=== PATIENT | female | born 1950 | race Caucasian/White ===

== ENCOUNTER → 2020-02-05 | Outpatient (CLI) | payer MEDICARE ==
--- NOTE | 2020-02-11 07:50 | MM ---
Reason for exam: clinical finding. History: Patient is postmenopausal and is nulliparous. Family history of breast cancer in mother at age 48 and breast cancer in sister at age 61. Excisional biopsy of the right breast. Benign excisional biopsy of the right breast. Took estrogen for 6 months beginning at age 47. Took progesterone for 6 months beginning at age 47. Physical Findings: Nurse did not find any significant physical abnormalities on exam. MG Diagnostic Mammo w CAD DELTA Bilateral CC and MLO view(s) were taken. The breast tissue is heterogeneously dense. This may lower the sensitivity of mammography. Finding #1: There is a 11 mm irregular mass in the lower inner quadrant of the right breast. Finding #2: There are typically benign calcifications in the right breast. These results were verbally communicated with the patient and result sheet given to the patient on 02/05/20. ASSESSMENT: Incomplete: need additional imaging evaluation, BI-RAD 0 RECOMMENDATION: Ultrasound of the right breast.
--- NOTE | 2020-02-11 07:52 | USB ---
Reason for exam: additional evaluation requested from abnormal screening. History: Patient is postmenopausal and is nulliparous. Family history of breast cancer in mother at age 48 and breast cancer in sister at age 61. Excisional biopsy of the right breast. Benign excisional biopsy of the right breast. Took estrogen for 6 months beginning at age 47. Took progesterone for 6 months beginning at age 47. US Breast RT Technologist: Bettina Del Real Right complete breast ultrasound includes all four quadrants, the retroareolar region and axilla. Finding demonstrates a 0.9 x 0.8 x 0.5cm lymph node at 12 o'clock. These results were verbally communicated with the patient and result sheet given to the patient on 02/05/20. ASSESSMENT: Suspicious, BI-RAD 4 RECOMMENDATION: Surgical consultation and stereotactic core biopsy of the right breast. Biopsy right inner lower breast. Surgical consult recommended regarding bloody nipple discharge. Called Dr. Adame's office with mammographic findings and has scheduled an appointment for the patient for 02/18/20 at 4:[address] Barillas. PRELIMINARY REPORT CALLED AND FAXED TO DR. BARILLAS ON 02/11/20.
== END | disposition home or self-care (01) ==
LOC: RADMAMWWP 10:29
PROVIDERS: ATTEND Family Medicine
DX: N64.59 Other signs and symptoms in breast (principal); Z80.3 Family history of malignant neoplasm of breast
CPT/HCPCS: 77066

== ENCOUNTER → 2020-02-26 | Outpatient (CLI) | payer MEDICARE | END | disposition home or self-care (01) | LOC: LABWHC1 11:13 | PROVIDERS: ATTEND Surgery | DX: Z11.59 Encounter for screening for other viral diseases (principal) ==

== ENCOUNTER → 2020-02-28 | Day surgery (SDC) | payer MEDICARE ==
[2020-02-28 09:48] VITALS: RESP 16; TEMP 98.2
--- NOTE | 2020-02-28 10:53 | P.PCN ---
Date of Procedure: 02/28/20 Preoperative Diagnosis: abnormal mammogram right breast Postoperative Diagnosis: abnormal mammogram right breast Procedure(s) Performed: right stereotactic breast biopsy with marker placement Anesthesia: local Surgeon: Karina Barillas Pathology: other Condition: stable Disposition: other (discharge home) Indications for Procedure: abnormal mammogram Description of Procedure: The patient is taken to the stereotactic suite where the area of concern is identified and marked by the radiologist. The breast is then prepped. Local anesthetic was instilled into the skin and breast tissue. A skin cash was made. The needle was advanced to the appropriate depth. Pre-fire films were obtained. The needle was then fired. Multiple vacuum-assisted automated cores are obtained and sent for pathology. A tissue markers placed. Postbiopsy film showed the marker to be in good position. Pressure was held the dressing was applied. She tolerated the procedure without difficulty. I will see her in the office next week for pathology.
[2020-02-28 11:32] VITALS: BP 158/69; PULSE 53
--- NOTE | 2020-02-28 11:34 | MM ---
EXAMINATION TYPE: MG stereo VAD BX RT DATE OF EXAM: 02/28/2020 COMPARISON: Prior mammogram February 05, 2020 and older mammograms CLINICAL HISTORY: Abnormal mammogram. Recent benign biopsy December 2018. TECHNIQUE: Stereotactic guided core biopsy of right breast with clip placement and follow-up diagnostic two-view mammogram.. FINDINGS: The procedure of stereotactic guided core biopsy was explained to the patient. Benefits, alternatives, and risks were discussed. An informed consent was then obtained. The shortness pathway for biopsy was chosen. Preprocedure mammogram reviewed shows focal asymmetry near biopsy clip felt suspicious by radiologist. Shortness pathway was inferior approach. I performed the localization, then surgeon, Dr. Barillas performed the remainder of the procedure. A vacuum assisted biopsy gun was used to obtain multiple core samples. The patient tolerated the procedure well without any immediate complication. The patient was kept in the radiology department for short stay after the procedure and then discharged home in stable condition. Targeted calcifications are identified in specimen mammogram. Post biopsy mammogram shows single remaining clip to appear in satisfactory position relative to the targeted area of concern on the preprocedure images. Small hematoma is present. It is suspected prior biopsy clip was excised during this sampling. IMPRESSION: SUCCESSFUL, UNCOMPLICATED STEREOTACTIC GUIDED CORE BIOPSY OF AREA OF CONCERN IN THE RIGHT BREAST, FULL PATHOLOGY RESULTS TO FOLLOW. Low index of suspicion noted at time of procedure. Pathology Results: Benign RIGHT BREAST, STEREOTACTIC CORE BIOPSY: Fibroadenoma/fibroadenomatoid hyperplasia with background scar and hemosiderin laden histiocytes. Recommendation Follow up mammogram of the right breast in 6 months. JOANNE
== END ==
LOC: RADMAMWWP 09:31
PROVIDERS: ATTEND Surgery
DX: D24.1 Benign neoplasm of right breast (principal); N62 Hypertrophy of breast; Z88.8 Allergy status to other drugs, medicaments and biological substances; Z88.5 Allergy status to narcotic agent
CPT/HCPCS: 88305; 19081; A4648

== ENCOUNTER → 2020-09-22 | Outpatient (CLI) | payer MEDICARE ==
--- NOTE | 2020-09-23 08:40 | MM ---
Reason for exam: follow-up at short interval from prior study. Last mammogram was performed 8 months ago. History: Patient is postmenopausal and is nulliparous. Family history of breast cancer in mother at age 48 and breast cancer in sister at age 61. Benign MG stereo VAD BX RT of the right breast, February 28, 2020. Excisional biopsy of the right breast. Benign excisional biopsy of the right breast. Took estrogen for 6 months beginning at age 47. Took progesterone for 6 months beginning at age 47. Physical Findings: Nurse did not find any significant physical abnormalities on exam. MG Diagnostic Mammo RT w CAD CC and MLO view(s) were taken of the right breast. Prior study comparison: February 05, 2020, bilateral MG diagnostic mammo w CAD DELTA. There are scattered fibroglandular densities. Previous mammotome biopsy in the right breast. Focal asymmetry right upper outer quadrant. No significant new findings when compared with previous films. These results were verbally communicated with the patient and result sheet given to the patient on 09/22/20. ASSESSMENT: Benign, BI-RAD 2 RECOMMENDATION: Routine screening mammogram of both breasts in 6 months. Back on schedule.
== END | disposition home or self-care (01) ==
LOC: RADMAMWWP 14:31
PROVIDERS: ATTEND Family Medicine
DX: R92.8 Other abnormal and inconclusive findings on diagnostic imaging of breast (principal)
CPT/HCPCS: 77065

== ENCOUNTER → 2021-03-11 | Outpatient (CLI) | payer MEDICARE ==
--- NOTE | 2021-03-12 13:10 | MM ---
Reason for exam: screening (asymptomatic). Last mammogram was performed 6 months ago. History: Patient is postmenopausal and is nulliparous. Family history of breast cancer in mother at age 48 and breast cancer in sister at age 61. Benign MG stereo VAD BX RT of the right breast, February 28, 2020. Excisional biopsy of the right breast. Benign excisional biopsy of the right breast. Took estrogen for 6 months beginning at age 47. Took progesterone for 6 months beginning at age 47. Physical Findings: A clinical breast exam by your physician is recommended on an annual basis and results should be correlated with mammographic findings. MG Screening Mammo w CAD Bilateral CC and MLO view(s) were taken. Prior study comparison: September 22, 2020, right breast MG diagnostic mammo RT w CAD. February 05, 2020, bilateral MG diagnostic mammo w CAD DELTA. There are scattered fibroglandular densities. Biopsy clips bilaterally. Right diagnostic mammogram with magnification views retroareolar region is recommended for patient reported right bloody nipple discharge. Right ultrasound also recommended for same. Repeat left MLO for motion. ASSESSMENT: Incomplete: need additional imaging evaluation, BI-RAD 0 RECOMMENDATION: Special view mammogram of both breasts. Ultrasound of the right breast. [facility] will attempt to contact patient to return for supplemental views and ultrasound.
== END | disposition home or self-care (01) ==
LOC: RADMAMWWP 12:39
PROVIDERS: ATTEND Family Medicine
DX: Z12.31 Encounter for screening mammogram for malignant neoplasm of breast (principal); Z78.0 Asymptomatic menopausal state; Z80.3 Family history of malignant neoplasm of breast
CPT/HCPCS: 77067

== ENCOUNTER → 2021-04-20 | Outpatient (CLI) | payer MEDICARE ==
--- NOTE | 2021-04-23 13:03 | USB ---
Reason for exam: additional evaluation requested from abnormal screening. History: Patient is postmenopausal and is nulliparous. Family history of breast cancer in mother at age 48 and breast cancer in sister at age 61. Benign MG stereo VAD BX RT of the right breast, February 28, 2020. Excisional biopsy of the right breast. Benign excisional biopsy of the right breast. Took estrogen for 6 months beginning at age 47. Took progesterone for 6 months beginning at age 47. Physical Findings: Nurse Summary: all soft, nodular, movable, no nipple discharge noted on exam (nurse ts). US Breast Workup Limited RT Right limited breast ultrasound including focal area of concern, retroareolar and axilla demonstrates duct ectasia at 12 o'clock and a 1.3 x 1.0 x 1.2cm lymph node at the axilla. These results were verbally communicated with the patient and result sheet given to the patient on 04/20/21. ASSESSMENT: Benign, BI-RAD 2 RECOMMENDATION: Return to routine screening mammogram schedule for both breasts. Manage patient on a clinical basis.
== END | disposition home or self-care (01) ==
LOC: RADUSWWP 14:36
PROVIDERS: ATTEND Family Medicine
DX: R92.8 Other abnormal and inconclusive findings on diagnostic imaging of breast (principal); Z80.3 Family history of malignant neoplasm of breast

== ENCOUNTER 2021-07-21 12:17 | Emergency (ER) | payer MEDICARE ==
[2021-07-21 13:06] VITALS: BP 118/74; TEMP 98.6
--- NOTE | 2021-07-21 16:08 | ED ---
General Adult HPI - General Chief complaint: Upper Respiratory Infection Stated complaint: COVID+ wants infusion Time Seen by Provider: 07/21/21 15:11 Source: patient, RN notes reviewed Mode of arrival: ambulatory Limitations: no limitations - History of Present Illness Initial comments: 70-year-old female presents to the emergency department with complaints of fatigue and malaise, she is known Covid positive. Patient states her symptoms began 5 days ago with a nonproductive cough and decreased appetite. Patient was seen by her primary care provider who recommended she receive the monoclonal antibody infusion. Patient denies fever, chills, chest pain, difficulty breathing, shortness of breath. States she has taken Tylenol for generalized body aches. - Related Data Home Medications Medication Instructions Recorded Confirmed Cholecalciferol [Vitamin D3 (25 5,000 unit PO DAILY 03/15/19 02/28/20 Mcg = 1000 Iu)] Dapagliflozin Propanediol [Farxiga] 10 mg PO DAILY 03/15/19 02/28/20 Diclofenac Sodium Gel [Voltaren 2 gm TOPICAL QID 03/15/19 02/28/20 Gel] Insulin Glulisine (For Pump) 0.01 units SQ-PUMP CONTINUOUS 03/15/19 02/28/20 [Apidra (For Pump)] Spironolactone 50 mg PO DAILY 03/15/19 02/28/20 Triamcinolone 0.1% Cream [Kenalog 1 applicatio TOPICAL BID 03/15/19 02/28/20 0.1% Cream] Venlafaxine HCl [Effexor] 225 mg PO DAILY 03/15/19 02/28/20 sitaGLIPtin [Januvia] 100 mg PO DAILY 03/15/19 02/28/20 Apixaban [Eliquis] 2.5 mg PO BID 02/21/20 02/28/20 Previous Rx's Medication Instructions Recorded Amiodarone [Cordarone] 200 mg PO BID #60 tab 03/20/19 Atorvastatin [Lipitor] 40 mg PO HS #30 tab 03/20/19 Lisinopril-Hctz 20-12.5 mg 1 each PO BID #60 tab 03/20/19 [Zestoretic 20-12.5] Metoprolol Tartrate [Lopressor] 25 mg PO BID #60 tablet 03/20/19 Psyllium Husk 100% [Metamucil 6 gm PO DAILY packet 03/20/19 Packet] Allergies Allergy/AdvReac Type Severity Reaction Status Date / Time codeine AdvReac Unknown Verified 07/21/21 13:06 hydrocodone AdvReac Unknown Verified 07/21/21 13:06 nifedipine [From Procardia] AdvReac Unknown Verified 07/21/21 13:06 Review of Systems ROS Statement: Those systems with pertinent positive or pertinent negative responses have been documented in the HPI. ROS Other: All systems not noted in ROS Statement are negative. Past Medical History Past Medical History: Diabetes Mellitus, Hypertension History of Any Multi-Drug Resistant Organisms: None Reported Past Surgical History: Appendectomy, Cholecystectomy, Hysterectomy Additional Past Surgical History / Comment(s): lap band Past Anesthesia/Blood Transfusion Reactions: No Reported Reaction Past Psychological History: Depression Smoking Status: Never smoker Past Alcohol Use History: None Reported - Past Family History Mother Family Medical History: Diabetes Mellitus Additional Family Medical History / Comment(s): of a heart attack Father Family Medical History: Congestive Heart Failure (CHF) General Exam Limitations: no limitations (Well-developed, well-nourished female in no acute distress. Initial temperature 98.6, pulse 66, respirations 20, blood pressure 118/74, pulse ox 97% on room air.) General appearance: alert, in no apparent distress ENT exam: Present: normal exam, normal oropharynx, mucous membranes moist Neck exam: Present: normal inspection. Absent: tenderness, meningismus, lymphadenopathy Respiratory exam: Present: normal lung sounds bilaterally. Absent: respiratory distress, wheezes, rales, rhonchi, stridor Cardiovascular Exam: Present: regular rate, normal rhythm, normal heart sounds. Absent: systolic murmur, diastolic murmur, rubs, gallop, clicks GI/Abdominal exam: Present: soft, normal bowel sounds. Absent: distended, tenderness, guarding, rebound, rigid Neurological exam: Present: alert, oriented X3, CN II-XII intact Psychiatric exam: Present: normal affect, normal mood Skin exam: Present: warm, dry, intact, normal color. Absent: rash Course Vital Signs 07/21/21 07/21/21 07/21/21 13:03 15:07 19:07 Temperature 98.6 F Pulse Rate 66 68 Respiratory 20 22 16 Rate Blood Pressure 118/74 O2 Sat by Pulse 97 96 Oximetry Medical Decision Making - Medical Decision Making 70-year-old female with a history of type 2 diabetes and recent diagnosis of COVID-19 is evaluated for monoclonal antibody infusion. Upon physical exam, patient is well-appearing; mucous membranes moist, no shortness of breath, and patient is eating a sandwich and drinking juice. Regen-COV medication fact sheet reviewed with patient; she verbalized understanding and wished to proceed with infusion. It was well-tolerated with no adverse action. Discharge instructions were reviewed with patient including follow-up with her primary care provider. Return parameters were discussed in detail. Patient verbalizes understanding and agrees with this plan. This patient's case was discussed with my attending Dr. Hernandez. Disposition Clinical Impression: COVID-19 Disposition: HOME SELF-CARE Condition: Stable Instructions (If sedation given, give patient instructions): Coronavirus Disease 2019 (COVID-19) Additional Instructions: Rest. Increase fluids. Treatment discomfort with [id number] Tylenol or Motrin. Follow-up with your primary care provider for a recheck. Return to the emergency department with any new, worsening, or concerning symptoms. Is patient prescribed a controlled substance at d/c from ED?: No Referrals: Viraj Adame MD [Primary Care Provider] - 1-2 days Time of Disposition: 19:01
[2021-07-21] MEDS ORDERED: SODIUM CHLORIDE 0.9% 50 ML IVPB ONE (16:30)
[2021-07-21] MEDS ORDERED: CASIRIVIMAB (REGN10933) (EUA) 600 MG, IMDEVIMAB (REGN10987) (EUA) 600 MG in SODIUM CHLO... IVPB ONE (16:45)
[2021-07-21 19:08] VITALS: PULSE 68; RESP 16
== END 2021-07-21 19:08 | disposition home or self-care (01) ==
LOC: EC 12:17
DX: U07.1 COVID-19 (principal); I10 Essential (primary) hypertension; E11.9 Type 2 diabetes mellitus without complications; F32.9 Major depressive disorder, single episode, unspecified; Z79.4 Long term (current) use of insulin; Z79.01 Long term (current) use of anticoagulants; Z88.5 Allergy status to narcotic agent; Z90.49 Acquired absence of other specified parts of digestive tract; Z90.710 Acquired absence of both cervix and uterus
CPT/HCPCS: 99283 ×2; 96365; M0243; Q0243

== ENCOUNTER 2021-07-24 17:30 | Inpatient (IN) | payer MEDICARE ==
[2021-07-24] MEDS ORDERED: SODIUM CHLORIDE 0.9% 500 ML 500 ML IV STA (19:01)
--- NOTE | 2021-07-24 19:06 | ED ---
General Adult HPI <Bryn Cage - Last Filed: 07/24/21 20:52> - General Source: patient, RN notes reviewed, old records reviewed Mode of arrival: wheelchair Limitations: no limitations - History of Present Illness -: days(s) (8) Severity scale (1-10): 0 Associated Symptoms: malaise Treatments Prior to Arrival: other (Tylenol and Motrin at 1500) <Ancelmo Forrest - Last Filed: 07/24/21 23:21> - General Chief complaint: Upper Respiratory Infection Stated complaint: COVID+ Time Seen by Provider: 07/24/21 18:50 - History of Present Illness Initial comments: Well-appearing well-nourished 70-year-old female that presents to the emergency room with complaints of generalized fatigue. Patient states that she was diagnosed with Covid on Monday and received monoclonal antibodies on Monday the . She states that her symptoms all started on July 16. She states that since getting the monoclonal antibody she has not had a fever or cough but just has generalized fatigue. She denies any nausea vomiting diarrhea, chest pain or difficulty in breathing. She does live alone and came to the emergency room because she feels weak. She does have a history of diabetes and uses an insulin pump. She has not had any problems with her blood sugars.. (Ancelmo Forrest) - Related Data Home Medications Medication Instructions Recorded Confirmed Dapagliflozin Propanediol [Farxiga] 10 mg PO DAILY 03/15/19 07/24/21 Insulin Glulisine (For Pump) 0.01 units SQ-PUMP CONTINUOUS 03/15/19 07/24/21 [Apidra (For Pump)] Spironolactone 50 mg PO DAILY 03/15/19 07/24/21 Venlafaxine HCl [Effexor] 225 mg PO DAILY 03/15/19 07/24/21 sitaGLIPtin [Januvia] 100 mg PO DAILY 03/15/19 07/24/21 Allopurinol [Zyloprim] 100 mg PO HS 07/24/21 07/24/21 Apixaban [Eliquis] 2.5 mg PO BID 07/24/21 07/24/21 Cetirizine HCl [Zyrtec] 10 mg PO DAILY 07/24/21 07/24/21 Cholecalciferol [Vitamin D3 (25 25 mcg PO DAILY 07/24/21 07/24/21 Mcg = 1000 Iu)] Lisinopril-Hctz 20-12.5 mg 1 tab PO BID 07/24/21 07/24/21 [Zestoretic 20-12.5] Previous Rx's Medication Instructions Recorded Atorvastatin [Lipitor] 40 mg PO HS #30 tab 03/20/19 Metoprolol Tartrate [Lopressor] 25 mg PO BID #60 tablet 03/20/19 Allergies Allergy/AdvReac Type Severity Reaction Status Date / Time codeine AdvReac Unknown Verified 07/24/21 21:28 hydrocodone AdvReac Unknown Verified 07/24/21 21:28 nifedipine [From Procardia] AdvReac Unknown Verified 07/24/21 21:28 Review of Systems ROS Other: All systems not noted in ROS Statement are negative. <Bryn Cage - Last Filed: 07/24/21 20:52> ROS Other: All systems not noted in ROS Statement are negative. <Ancelmo Forrest - Last Filed: 07/24/21 23:21> ROS Statement: Those systems with pertinent positive or pertinent negative responses have been documented in the HPI. Past Medical History Past Medical History: Diabetes Mellitus, Hypertension History of Any Multi-Drug Resistant Organisms: None Reported Past Surgical History: Appendectomy, Cholecystectomy, Hysterectomy Additional Past Surgical History / Comment(s): lap band Past Anesthesia/Blood Transfusion Reactions: No Reported Reaction Past Psychological History: Depression Smoking Status: Never smoker Past Alcohol Use History: None Reported Past Drug Use History: None Reported - Past Family History Mother Family Medical History: Diabetes Mellitus Additional Family Medical History / Comment(s): of a heart attack Father Family Medical History: Congestive Heart Failure (CHF) <Ancelmo Forrest - Last Filed: 07/24/21 23:21> General Exam Limitations: no limitations General appearance: alert, in no apparent distress Head exam: Present: atraumatic, normocephalic, normal inspection Eye exam: Present: normal appearance, PERRL, EOMI. Absent: scleral icterus, conjunctival injection, periorbital swelling ENT exam: Present: normal exam, normal oropharynx, mucous membranes moist Neck exam: Present: normal inspection, full ROM. Absent: tenderness, meningismus, lymphadenopathy Respiratory exam: Present: normal lung sounds bilaterally. Absent: respiratory distress, wheezes, rales, rhonchi, stridor Cardiovascular Exam: Present: regular rate, normal rhythm, normal heart sounds. Absent: systolic murmur, diastolic murmur, rubs, gallop, clicks GI/Abdominal exam: Present: soft, normal bowel sounds. Absent: distended, tenderness, guarding, rebound, rigid Extremities exam: Present: normal inspection, full ROM, normal capillary refill. Absent: tenderness, pedal edema, joint swelling, calf tenderness Back exam: Present: normal inspection, full ROM. Absent: tenderness, CVA tenderness (R), CVA tenderness (L), paraspinal tenderness, vertebral tenderness, rash noted Neurological exam: Present: alert, oriented X3, CN II-XII intact Psychiatric exam: Present: normal affect, normal mood Skin exam: Present: warm, dry, intact, normal color. Absent: rash <Ancelmo Forrest - Last Filed: 07/24/21 23:21> Course Vital Signs 07/24/21 07/24/21 18:40 21:38 Temperature 98.6 F 98.7 F Pulse Rate 60 63 Respiratory 20 20 Rate Blood Pressure 149/90 132/54 O2 Sat by Pulse 98 99 Oximetry EKG Findings - EKG Results: EKG: sinus rhythm (Ventricular rate 64, CO interval of 0.188, QRS 0.128, QTc 0.466), not changed from: (03/19/2019) <Ancelmo Forrest - Last Filed: 07/24/21 23:21> Medical Decision Making - Lab Data Result diagrams: 07/24/21 19:25 07/24/21 19:25 <Bryn Cage - Last Filed: 07/24/21 20:52> - Lab Data Result diagrams: 07/24/21 19:25 07/24/21 22:16 <Ancelmo Forrest - Last Filed: 07/24/21 23:21> - Medical Decision Making Case reviewed with practitioner Angel. Results reviewed. Case discussed with aircraft engine mechanic overhaul Dr. Aparicio who does not feel patient needs ICU admission. (Bryn Cage) Chest x-ray shows interstitial pneumonia which is likely covid pneumonia. She has been complaining of worsening fatigue after Covid. There is no evidence of leukocytosis or anemia. Her sodium is 118 lactic acid is 2.3. Troponin is negative at 0.012 chest x-ray shows no acute changes compared to 03/19/2019. Patient was given 500cc of normal saline. Patient will be admitted with hyponatremia. I did discuss this case with Dr. Cage. He did discuss with Dr. Aparicio possible ICU admission and he declined. Patient will be admitted to a telemetry floor ([facility]) - Lab Data Lab Results 07/24/21 07/24/21 07/24/21 Range/Units 19:25 19:25 19:25 WBC 10.3 (3.8-10.6) k/uL RBC 4.93 (3.80-5.40) m/uL Hgb 14.9 (11.4-16.0) gm/dL Hct 43.2 (34.0-46.0) % MCV 87.6 (80.0-100.0) fL MCH 30.2 (25.0-35.0) pg MCHC 34.5 (31.0-37.0) g/dL RDW 14.8 (11.5-15.5) % Plt Count 254 (150-450) k/uL MPV 8.5 Neutrophils % 77 % Lymphocytes % 16 % Monocytes % 4 % Eosinophils % 1 % Basophils % 0 % Neutrophils # 8.0 H (1.3-7.7) k/uL Lymphocytes # 1.7 (1.0-4.8) k/uL Monocytes # 0.4 (0-1.0) k/uL Eosinophils # 0.1 (0-0.7) k/uL Basophils # 0.0 (0-0.2) k/uL PT 10.5 (9.0-12.0) sec INR 1.0 (<1.2) APTT 28.6 (22.0-30.0) sec Sodium 118 L* (137-145) mmol/L Potassium 4.8 (3.5-5.1) mmol/L Chloride 82 L (98-107) mmol/L Carbon Dioxide 22 (22-30) mmol/L Anion Gap 14 mmol/L BUN 17 (7-17) mg/dL Creatinine 0.84 (0.52-1.04) mg/dL Est GFR (CKD-EPI)AfAm 83 (>60 ml/min/1.73 sqM) Est GFR (CKD-EPI)NonAf 72 (>60 ml/min/1.73 sqM) Glucose 127 H (74-99) mg/dL Lactic Ac Sepsis Rflx Plasma Lactic Acid Tyron (0.7-2.0) mmol/L Calcium 9.4 (8.4-10.2) mg/dL Magnesium 2.0 (1.6-2.3) mg/dL Total Bilirubin 0.7 (0.2-1.3) mg/dL AST 29 (14-36) U/L ALT 20 (4-34) U/L Alkaline Phosphatase 133 H (38-126) U/L Troponin I (0.000-0.034) ng/mL Total Protein 7.4 (6.3-8.2) g/dL Albumin 4.2 (3.5-5.0) g/dL TSH 2.030 (0.465-4.680) mIU/L 07/24/21 07/24/21 07/24/21 Range/Units 19:25 19:25 20:02 WBC (3.8-10.6) k/uL RBC (3.80-5.40) m/uL Hgb (11.4-16.0) gm/dL Hct (34.0-46.0) % MCV (80.0-100.0) fL MCH (25.0-35.0) pg MCHC (31.0-37.0) g/dL RDW (11.5-15.5) % Plt Count (150-450) k/uL MPV Neutrophils % % Lymphocytes % % Monocytes % % Eosinophils % % Basophils % % Neutrophils # (1.3-7.7) k/uL Lymphocytes # (1.0-4.8) k/uL Monocytes # (0-1.0) k/uL Eosinophils # (0-0.7) k/uL Basophils # (0-0.2) k/uL PT (9.0-12.0) sec INR (<1.2) APTT (22.0-30.0) sec Sodium (137-145) mmol/L Potassium (3.5-5.1) mmol/L Chloride (98-107) mmol/L Carbon Dioxide (22-30) mmol/L Anion Gap mmol/L BUN (7-17) mg/dL Creatinine (0.52-1.04) mg/dL Est GFR (CKD-EPI)AfAm (>60 ml/min/1.73 sqM) Est GFR (CKD-EPI)NonAf (>60 ml/min/1.73 sqM) Glucose (74-99) mg/dL Lactic Ac Sepsis Rflx Y Plasma Lactic Acid Tyron 2.3 H* (0.7-2.0) mmol/L Calcium (8.4-10.2) mg/dL Magnesium (1.6-2.3) mg/dL Total Bilirubin (0.2-1.3) mg/dL AST (14-36) U/L ALT (4-34) U/L Alkaline Phosphatase (38-126) U/L Troponin I <0.012 (0.000-0.034) ng/mL Total Protein (6.3-8.2) g/dL Albumin (3.5-5.0) g/dL TSH (0.465-4.680) mIU/L Disposition <Bryn Cage - Last Filed: 07/24/21 20:52> Decision Date: 07/24/21 Decision Time: 21:07 <Ancelmo Forrest - Last Filed: 07/24/21 23:21> Clinical Impression: Hyponatremia, COVID-19 Disposition: ADMITTED IP TO THIS [facility] Condition: Fair
[2021-07-24 20:01] LABS: Albumin 4.2 g/dL (3.5-5.0); Calcium 9.4 mg/dL (8.4-10.2); Potassium 4.8 mmol/L (3.5-5.1); Total Bilirubin 0.7 mg/dL (0.2-1.3); Total Protein 7.4 g/dL (6.3-8.2)
--- NOTE | 2021-07-24 20:06 | XR ---
EXAMINATION TYPE: XR chest 2V DATE OF EXAM: 07/24/2021 COMPARISON: 03/14/2019 HISTORY: Weakness short of breath TECHNIQUE: 2 views FINDINGS: There is in normal heart. There is some coarsening of interstitial markings in the lower bobby ng gomes. There is no heart failure. There are no hilar masses. Mediastinum is normal. IMPRESSION: Mild coarsening of the lung markings could be mild fibrosis or interstitial pneumonia. Th is appears new compared to old exam.
[2021-07-24 20:10] LABS: Partial Thromboplastin Time 28.6 sec (22.0-30.0); Prothrombin Time 10.5 sec (9.0-12.0)
[2021-07-24 20:13] LABS: Basophils % (A) 0 %; Eosinophils # (A) 0.1 k/uL (0-0.7); Eosinophils % (A) 1 %; HCT 43.2 % (34.0-46.0); HGB 14.9 gm/dL (11.4-16.0); Lymphocytes # (A) 1.7 k/uL (1.0-4.8); Lymphocytes % (A) 16 %; MCH 30.2 pg (25.0-35.0); MCHC 34.5 g/dL (31.0-37.0); MCV 87.6 fL (80.0-100.0); Mean Platelet Volume 8.5; Monocytes # (A) 0.4 k/uL (0-1.0); Monocytes % (A) 4 %; Neutrophils % (A) 77 %; Platelet Count 254 k/uL (150-450); RBC 4.93 m/uL (3.80-5.40); RDW 14.8 % (11.5-15.5); WBC 10.3 k/uL (3.8-10.6)
[2021-07-24] MEDS ORDERED: SODIUM CHLORIDE 0.9% 500 ML 500 ML IV ONE (20:15)
[2021-07-24] MEDS ORDERED: SODIUM CHLORIDE 0.9% 1,000 ML IV SCH (20:45)
[2021-07-24] MEDS ORDERED: NALOXONE 0.4 MG/ML 1 ML VIAL IV PRN (21:03)
[2021-07-24 22:50] LABS: African American GFR (CKD) >90 (>60 ml/min/1.73 sqM); Anion Gap 10 mmol/L; Blood Urea Nitrogen 18 mg/dL (7-17); Calcium 8.3 mg/dL (8.4-10.2); Carbon Dioxide 21 mmol/L (22-30); Chloride 85 mmol/L (98-107); Glucose 73 mg/dL (74-99); Non-African American GFR(CKD) >90 (>60 ml/min/1.73 sqM)
[2021-07-24 23:00] LABS: Sodium 116 mmol/L (137-145)
--- NOTE | 2021-07-25 02:12 | P.HPIM ---
History of Present Illness H&P Date: 07/24/21 The patient is a 70-year-old female with a PMH of type II DM on insulin pump, A. fib on Eliquis, hypertension, recently diagnosed COVID-19 who presents to the emergency room with complaints of generalized fatigue. The patient reports that she was diagnosed with COVID-19 roughly 10 days ago and subsequently received monoclonal antibodies on 07/21. She reports that ever since receiving the antibodies, although she did not have a fever or chills, that she has continued to feel fatigued and has a diminished appetite. She denied any additional complaints however. Denied chest discomfort, shortness of breath, fever, chills, cough. Denied nausea, vomiting, abdominal pain, diarrhea. Reports good control of her blood glucose at home. In the emergency room, laboratory evaluation revealed a sodium of 118, chloride 82, lactic acid 2.3. The patient reports that she has been drinking several large containers of water daily although she is not eating much. Review of systems: Pertinent positives and negatives as discussed in HPI, a complete review of systems was performed and all other systems are negative. Physical examination: General: non toxic, no distress, appears at stated age, obese Derm: no unusual rashes/lesions no unusual ecchymoses, warm, dry Head: atraumatic, normocephalic, symmetric Eyes: EOMI, no lid lag, anicteric sclera, pupils equal round reactive to light ENT: Nose and ears atraumatic, no thrush, no pharyngeal erythema Neck: No thyromegaly, no cervical lymphadenopathy, trachea midline, supple Mouth: no lip lesion, mucus membranes moist Cardiovascular: S1S2 reg, no murmur, positive posterior tibial pulse bilateral, no edema, capillary refill less than 2 seconds Lungs: CTA bilateral, no rhonchi, no rales , no accessory muscle use Abdominal: soft, nontender to palpation, no guarding, no appreciable organomegaly, normal bowel sounds Ext: no gross muscle atrophy, muscle strength 5 out of 5 in all 4 extremities grossly, no contractures, Neuro: CN II-XI grossly intact, light touch intact all 4 extremities, finger to nose within normal limits, Psych: Alert, oriented, appropriate affect Assessment/plan Severe hyponatremia -Workup sent -Suspected secondary to excess free water intake -Sodium decreased from 118-116 after 1 L of IV fluids -Hold any additional IV fluids and place patient on fluid restriction at this time -Avoid overcorrection -Nephrology consult -Hold oral diuretics Lactic acidosis -Resolved Chronic conditions: Type II DM (basal rate 3.10/hr), hypertension, A. fib -Discontinue insulin pump -Levemir 30 units daily at bedtime with lispro insulin sliding scale -Check A1c -Continue the remaining home medications DVT prophylaxis -Eliquis The patient is admitted with an anticipated greater than 2 midnight stay for evaluation of hyponatremia CODE STATUS: Full Code Discussed with: Patient Anticipated discharge date: 2-[address]: Home Past Medical History Past Medical History: Diabetes Mellitus, Hypertension History of Any Multi-Drug Resistant Organisms: None Reported Past Surgical History: Appendectomy, Cholecystectomy, Hysterectomy Additional Past Surgical History / Comment(s): lap band Past Anesthesia/Blood Transfusion Reactions: No Reported Reaction Past Psychological History: Depression Smoking Status: Never smoker Past Alcohol Use History: None Reported Past Drug Use History: None Reported - Past Family History Mother Family Medical History: Diabetes Mellitus Additional Family Medical History / Comment(s): of a heart attack Father Family Medical History: Congestive Heart Failure (CHF) Medications and Allergies Home Medications Medication Instructions Recorded Confirmed Type Dapagliflozin Propanediol [Farxiga] 10 mg PO DAILY 03/15/19 07/24/21 History Insulin Glulisine (For Pump) 0.01 units SQ-PUMP CONTINUOUS 03/15/19 07/24/21 History [Apidra (For Pump)] Spironolactone 50 mg PO DAILY 03/15/19 07/24/21 History Venlafaxine HCl [Effexor] 225 mg PO DAILY 03/15/19 07/24/21 History sitaGLIPtin [Januvia] 100 mg PO DAILY 03/15/19 07/24/21 History Atorvastatin [Lipitor] 40 mg PO HS #30 tab 03/20/19 07/24/21 Rx Metoprolol Tartrate [Lopressor] 25 mg PO BID #60 tablet 03/20/19 07/24/21 Rx Allopurinol [Zyloprim] 100 mg PO HS 07/24/21 07/24/21 History Apixaban [Eliquis] 2.5 mg PO BID 07/24/21 07/24/21 History Cetirizine HCl [Zyrtec] 10 mg PO DAILY 07/24/21 07/24/21 History Cholecalciferol [Vitamin D3 (25 25 mcg PO DAILY 07/24/21 07/24/21 History Mcg = 1000 Iu)] Lisinopril-Hctz 20-12.5 mg 1 tab PO BID 07/24/21 07/24/21 History [Zestoretic 20-12.5] Allergies Allergy/AdvReac Type Severity Reaction Status Date / Time codeine AdvReac Unknown Verified 07/24/21 21:28 hydrocodone AdvReac Unknown Verified 07/24/21 21:28 nifedipine [From Procardia] AdvReac Unknown Verified 07/24/21 21:28 Physical Exam Vitals: Vital Signs Temp Pulse Resp BP Pulse Ox 07/24/21 21:38 98.7 F 63 20 132/54 99 07/24/21 18:40 98.6 F 60 20 149/90 98 Intake and Output 07/24/21 07/24/21 07/25/21 14:59 22:59 06:59 Other: Weight 83.461 kg Results CBC & Chem 7: 07/24/21 19:25 07/24/21 22:16 Labs: Abnormal Lab Results - Last 24 Hours (Table) 07/24/21 07/24/21 07/24/21 Range/Units 19:25 19:25 19:25 Neutrophils # 8.0 H (1.3-7.7) k/uL Sodium 118 L* (137-145) mmol/L Chloride 82 L (98-107) mmol/L Carbon Dioxide (22-30) mmol/L BUN (7-17) mg/dL Glucose 127 H (74-99) mg/dL Plasma Lactic Acid Tyron 2.3 H* (0.7-2.0) mmol/L Calcium (8.4-10.2) mg/dL Alkaline Phosphatase 133 H (38-126) U/L Coronavirus (PCR) (Not Detectd) 07/24/21 07/24/21 Range/Units 22:10 22:16 Neutrophils # (1.3-7.7) k/uL Sodium 116 L* (137-145) mmol/L Chloride 85 L (98-107) mmol/L Carbon Dioxide 21 L (22-30) mmol/L BUN 18 H (7-17) mg/dL Glucose 73 L (74-99) mg/dL Plasma Lactic Acid Tyron (0.7-2.0) mmol/L Calcium 8.3 L (8.4-10.2) mg/dL Alkaline Phosphatase (38-126) U/L Coronavirus (PCR) Detected A (Not Detectd)
[2021-07-25 02:40] LABS: HCT 36.7 % (34.0-46.0); HGB 12.8 gm/dL (11.4-16.0); MCH 30.2 pg (25.0-35.0); MCHC 34.8 g/dL (31.0-37.0); MCV 86.6 fL (80.0-100.0); Mean Platelet Volume 8.3; Platelet Count 228 k/uL (150-450); RBC 4.24 m/uL (3.80-5.40); RDW 14.8 % (11.5-15.5); WBC 6.8 k/uL (3.8-10.6)
[2021-07-25 02:56] LABS: Albumin 3.5 g/dL (3.5-5.0); Calcium 8.9 mg/dL (8.4-10.2); Potassium 4.2 mmol/L (3.5-5.1); Total Bilirubin 0.5 mg/dL (0.2-1.3); Total Protein 6.3 g/dL (6.3-8.2)
[2021-07-25 06:26] LABS: Glucose,Whole Blood 74 mg/dL (75-99)
[2021-07-25] MEDS: INSULIN ASPART (NovoLOG) 100 UNIT/ML VIAL SQ SCH ×4 (06:34→20:08)
[2021-07-25 07:44] LABS: Appearance,Urine Cloudy (Clear); Bacteria,Urine Moderate /hpf; Bilirubin,Urine Negative (Negative); Blood,Urine Small (Negative); Color,Urine Light Yellow; Glucose,Urine (UA) 4+ (Negative); Ketones,Urine Trace (Negative); Leukocyte Esterase,Urine Large (Negative); Nitrite,Urine Negative (Negative); PH, Urine 5.5 (5.0-8.0); Protein,Urine Trace (Negative); RBC,Urine 7 /hpf (0-5); Specific Gravity,Urine 1.006 (1.001-1.035); Squamous Epithelial Cell,Urine 1 /hpf (0-4); Urobilinogen,Urine <2.0 mg/dL (<2.0); WBC,Urine >182 /hpf (0-5)
[2021-07-25 08:51] LABS: Creatinine,Urine Random 41.4 mg/dL
[2021-07-25] MEDS: METOPROLOL TARTRATE 25 MG TAB PO SCH ×2 (09:03→20:07)
[2021-07-25] MEDS: APIXABAN 2.5 MG TABLET PO SCH ×2 (09:04→20:07)
[2021-07-25] MEDS: ACETAMINOPHEN TAB 325 MG TAB PO PRN ×2 (09:04→23:07)
[2021-07-25] MEDS ORDERED: SODIUM CHLORIDE 0.9% 1,000 ML IV SCH (09:15)
--- NOTE | 2021-07-25 09:35 | P.NPCON ---
History of Present Illness - Reason for Consult Consult date: 07/25/21 hyponatremia - Chief Complaint Hyponatremia - History of Present Illness This is a 70-year-old female seen in consultation because of hyponatremia She came in with a sodium of 118. She was given a liter of saline and sodium remained at 118 this morning. She has recently been diagnosed with Covid pneumonia received antibodies treatment Came in with generalized weakness. No nausea vomiting diarrhea no dizziness chest pain shortness of breath no fever chills no abdominal pain. Headache. Urine osmolality of 253 and serum osmolality 251 urine sodium not available Creatinine was She didn't draining large amounts of water and had a poor appetite and was not eating much. Workup has shown urine osmolality at 253 and serum of 251. Urine sodium not available. Sodium 118 potassium 4.2 chloride 85 bicarb 22. BUN was 19 and creatinine was 0.9 glucose 73. A chest x-ray shows coarsening of the lung markings possible interstitial disease Past Medical History Past Medical History: Diabetes Mellitus, Hypertension History of Any Multi-Drug Resistant Organisms: None Reported Past Surgical History: Appendectomy, Cholecystectomy, Hysterectomy Additional Past Surgical History / Comment(s): lap band Past Anesthesia/Blood Transfusion Reactions: No Reported Reaction Past Psychological History: Depression Smoking Status: Never smoker Past Alcohol Use History: None Reported Past Drug Use History: None Reported - Past Family History Mother Family Medical History: Diabetes Mellitus Additional Family Medical History / Comment(s): of a heart attack Father Family Medical History: Congestive Heart Failure (CHF) Medications and Allergies Home Medications Medication Instructions Recorded Confirmed Type Dapagliflozin Propanediol [Farxiga] 10 mg PO DAILY 03/15/19 07/24/21 History Insulin Glulisine (For Pump) 0.01 units SQ-PUMP CONTINUOUS 03/15/19 07/24/21 History [Apidra (For Pump)] Spironolactone 50 mg PO DAILY 03/15/19 07/24/21 History Venlafaxine HCl [Effexor] 225 mg PO DAILY 03/15/19 07/24/21 History sitaGLIPtin [Januvia] 100 mg PO DAILY 03/15/19 07/24/21 History Atorvastatin [Lipitor] 40 mg PO HS #30 tab 03/20/19 07/24/21 Rx Metoprolol Tartrate [Lopressor] 25 mg PO BID #60 tablet 03/20/19 07/24/21 Rx Allopurinol [Zyloprim] 100 mg PO HS 07/24/21 07/24/21 History Apixaban [Eliquis] 2.5 mg PO BID 07/24/21 07/24/21 History Cetirizine HCl [Zyrtec] 10 mg PO DAILY 07/24/21 07/24/21 History Cholecalciferol [Vitamin D3 (25 25 mcg PO DAILY 07/24/21 07/24/21 History Mcg = 1000 Iu)] Lisinopril-Hctz 20-12.5 mg 1 tab PO BID 07/24/21 07/24/21 History [Zestoretic 20-12.5] Allergies Allergy/AdvReac Type Severity Reaction Status Date / Time codeine AdvReac Unknown Verified 07/24/21 21:28 hydrocodone AdvReac Unknown Verified 07/24/21 21:28 nifedipine [From Procardia] AdvReac Unknown Verified 07/24/21 21:28 Physical Exam Vitals: Vital Signs Temp Pulse Pulse Resp BP BP Pulse Ox 07/25/21 08:00 97.8 F 67 16 146/83 97 07/25/21 04:50 98.2 F 73 18 139/67 97 07/25/21 00:16 98.6 F 67 18 151/76 95 07/24/21 21:38 98.7 F 63 20 132/54 99 07/24/21 18:40 98.6 F 60 20 149/90 98 Intake and Output 07/24/21 07/25/21 07/25/21 22:59 06:59 14:59 Other: Voiding Method Toilet # Voids 1 Weight 83.461 kg 82.5 kg On examination is awake alert oriented comfortable on room air No JVP noted neck supple no facial asymmetry Lungs clear to auscultation good air entry bilaterally Heart sounds unremarkable for any murmur rub gallop Abdomen is soft nontender Extremity exam was no edema Neurologically awake alert oriented Results - Lab Results Most recent lab results Calcium 8.9 mg/dL (8.4-10.2) 07/25/21 02:17 Magnesium 2.0 mg/dL (1.6-2.3) 07/24/21 19:25 07/25/21 02:17 07/25/21 02:17 Assessment and Plan Assessment: Pressure 1. 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 Sodium 118, creatinine was 0.67 yesterday and is 0.9 this morning. Urine is osmolality is 253 and serum osmolarity 251. Urine sodium not available chest x-ray is suggestive of interstitial disease or other than CHF. After normal saline 1 L and continuation sodium did not improve. 2. Recent: COVID 19 pneumon, On room air stable status post antibody infusion 3. Colon vaccinated 4. Diabetes mellitus Recommendation 1. Agree with discontinuation of IV fluids. 2. Fluid restrict 2000 mL 3. High-protein diet 4. Repeat labs in about 8 hours. 5. Start salt tablets 1 g 3 times a day. 6. May use Tolvaptan if no cahnges in [place] today for Thank you for this consultation we'll continue to follow closely
[2021-07-25 11:29] LABS: Glucose,Whole Blood 154 mg/dL (75-99)
[2021-07-25] MEDS ORDERED: MAG HYDROX/AL HYDROX/SIMETH 30 ML CUP PO PRN (15:17)
--- NOTE | 2021-07-25 15:48 | P.PN ---
Subjective Patient is doing well today. She denies significant shortness of breath. She informed me that she is vaccinated. Objective - Vital Signs Vital signs: Vital Signs Temp 97.8 F 07/25/21 08:00 Pulse 70 07/25/21 12:59 Resp 16 07/25/21 12:59 BP 138/75 07/25/21 12:59 Pulse Ox 98 07/25/21 12:59 Intake & Output 07/24/21 07/25/21 07/25/21 18:59 06:59 18:59 Intake Total 298 Balance 298 Weight 83.461 kg 82.5 kg Intake: Oral 298 Other: Voiding Method Toilet # Voids 1 1 - Exam General: The patient is awake and alert, in no distress Eye: there is normal conjunctiva bilaterally. Neck: The neck is supple, there is no JVD. Cardiovascular: Normal S1-S2, no S3-S4, no murmurs. Respiratory: Lungs clear to auscultation bilaterally Gastrointestinal: Abdomen is soft, nontender Musculoskeletal: There is no pedal edema. Neurological:. Speech is normal. Skin: Skin is warm and dry - Labs CBC & Chem 7: 07/25/21 02:17 07/25/21 02:17 Labs: Abnormal Lab Results - Last 24 Hours (Table) 07/24/21 07/24/21 07/24/21 Range/Units 19:25 19:25 19:25 Neutrophils # 8.0 H (1.3-7.7) k/uL Sodium 118 L* (137-145) mmol/L Chloride 82 L (98-107) mmol/L Carbon Dioxide (22-30) mmol/L BUN (7-17) mg/dL Glucose 127 H (74-99) mg/dL POC Glucose (mg/dL) (75-99) mg/dL Hemoglobin A1c (4.0-6.0) % Osmolality (280-301) mosm/kg Plasma Lactic Acid Tyron 2.3 H* (0.7-2.0) mmol/L Calcium (8.4-10.2) mg/dL Alkaline Phosphatase 133 H (38-126) U/L Urine Appearance (Clear) Urine Protein (Negative) Urine Glucose (UA) (Negative) Urine Ketones (Negative) Urine Blood (Negative) Ur Leukocyte Esterase (Negative) Urine RBC (0-5) /hpf Urine WBC (0-5) /hpf Urine WBC Clumps (None) /hpf Urine Bacteria (None) /hpf Coronavirus (PCR) (Not Detectd) 07/24/21 07/24/21 07/25/21 Range/Units 22:10 22:16 02:17 Neutrophils # (1.3-7.7) k/uL Sodium 116 L* (137-145) mmol/L Chloride 85 L (98-107) mmol/L Carbon Dioxide 21 L (22-30) mmol/L BUN 18 H (7-17) mg/dL Glucose 73 L (74-99) mg/dL POC Glucose (mg/dL) (75-99) mg/dL Hemoglobin A1c (4.0-6.0) % Osmolality 251 L (280-301) mosm/kg Plasma Lactic Acid Tyron (0.7-2.0) mmol/L Calcium 8.3 L (8.4-10.2) mg/dL Alkaline Phosphatase (38-126) U/L Urine Appearance (Clear) Urine Protein (Negative) Urine Glucose (UA) (Negative) Urine Ketones (Negative) Urine Blood (Negative) Ur Leukocyte Esterase (Negative) Urine RBC (0-5) /hpf Urine WBC (0-5) /hpf Urine WBC Clumps (None) /hpf Urine Bacteria (None) /hpf Coronavirus (PCR) Detected A (Not Detectd) 07/25/21 07/25/21 07/25/21 Range/Units 02:17 02:17 06:25 Neutrophils # (1.3-7.7) k/uL Sodium 118 L* (137-145) mmol/L Chloride 85 L (98-107) mmol/L Carbon Dioxide (22-30) mmol/L BUN 19 H (7-17) mg/dL Glucose 73 L (74-99) mg/dL POC Glucose (mg/dL) 74 L (75-99) mg/dL Hemoglobin A1c 10.8 H (4.0-6.0) % Osmolality (280-301) mosm/kg Plasma Lactic Acid Tyron (0.7-2.0) mmol/L Calcium (8.4-10.2) mg/dL Alkaline Phosphatase (38-126) U/L Urine Appearance (Clear) Urine Protein (Negative) Urine Glucose (UA) (Negative) Urine Ketones (Negative) Urine Blood (Negative) Ur Leukocyte Esterase (Negative) Urine RBC (0-5) /hpf Urine WBC (0-5) /hpf Urine WBC Clumps (None) /hpf Urine Bacteria (None) /hpf Coronavirus (PCR) (Not Detectd) 07/25/21 07/25/21 Range/Units 07:16 11:27 Neutrophils # (1.3-7.7) k/uL Sodium (137-145) mmol/L Chloride (98-107) mmol/L Carbon Dioxide (22-30) mmol/L BUN (7-17) mg/dL Glucose (74-99) mg/dL POC Glucose (mg/dL) 154 H (75-99) mg/dL Hemoglobin A1c (4.0-6.0) % Osmolality (280-301) mosm/kg Plasma Lactic Acid Tyron (0.7-2.0) mmol/L Calcium (8.4-10.2) mg/dL Alkaline Phosphatase (38-126) U/L Urine Appearance Cloudy H (Clear) Urine Protein Trace H (Negative) Urine Glucose (UA) 4+ H (Negative) Urine Ketones Trace H (Negative) Urine Blood Small H (Negative) Ur Leukocyte Esterase Large H (Negative) Urine RBC 7 H (0-5) /hpf Urine WBC >182 H (0-5) /hpf Urine WBC Clumps Moderate H (None) /hpf Urine Bacteria Moderate H (None) /hpf Coronavirus (PCR) (Not Detectd) Microbiology - Last 24 Hours (Table) 07/25/21 07:16 Urine Culture - Preliminary Urine,Voided Assessment and Plan Assessment: The patient is a 70-year-old female with a PMH of type II DM on insulin pump, A. fib on Eliquis, hypertension, recently diagnosed COVID-19 who presents to the emergency room with complaints of generalized fatigue. Patient was evaluated in the ER and admitted to the hospital for further management of her medical problems noted below Assessment/plan Severe hyponatremia -Suspected SIADH. Seen and evaluated by nephrology -Fluid restriction 2 L per day. SaltTabs 3 times a day. Discontinue IV fluid Uncomplicated UTI -Started on IV ceftriaxone awaiting urine culture COVID-19 -Positive testing vaccinated patient -Continue supportive care Lactic acidosis -Resolved Chronic conditions: Poorly controlled Type II DM (basal rate 3.10/hr), hypertension, A. fib -Discontinue insulin pump -Levemir 30 units daily at bedtime with lispro insulin sliding scale -A1c 10.8 -Continue the remaining home medications DVT prophylaxis -Eliquis CODE STATUS: Full Code Discussed with: Patient Anticipated discharge date: 2-[address]: Home
[2021-07-25 16:31] LABS: Glucose,Whole Blood 193 mg/dL (75-99)
[2021-07-25 16:57] LABS: Calcium 9.1 mg/dL (8.4-10.2); Potassium 4.8 mmol/L (3.5-5.1)
[2021-07-25 20:02] LABS: Glucose,Whole Blood 249 mg/dL (75-99)
[2021-07-25] MEDS: ATORVASTATIN 40 MG TAB PO SCH (20:07)
[2021-07-25] MEDS ORDERED: INSULIN DETEMIR (LEVEMIR) 100 UNIT/ML SYR SQ SCH (21:00)
[2021-07-26 03:02] LABS: Glucose,Whole Blood 150 mg/dL (75-99)
[2021-07-26 06:25] LABS: Glucose,Whole Blood 134 mg/dL (75-99)
[2021-07-26] MEDS: INSULIN ASPART (NovoLOG) 100 UNIT/ML VIAL SQ SCH ×3 (06:33→20:36)
[2021-07-26] MEDS: APIXABAN 2.5 MG TABLET PO SCH ×2 (09:27→20:40)
[2021-07-26] MEDS: METOPROLOL TARTRATE 25 MG TAB PO SCH ×2 (09:27→20:42)
[2021-07-26 11:44] LABS: Glucose,Whole Blood 131 mg/dL (75-99)
--- NOTE | 2021-07-26 12:40 | P.PN ---
Subjective Patient is awake and alert. She was sitting in the chair when I saw her. She is asking me when she could go home. We discussed her sodium level not improving much so far. Objective - Vital Signs Vital signs: Vital Signs Temp 98.1 F 07/26/21 04:10 Pulse 58 L 07/26/21 04:10 Resp 16 07/26/21 04:10 BP 142/68 07/26/21 04:10 Pulse Ox 99 07/26/21 04:10 Intake & Output 07/25/21 07/26/21 07/26/21 18:59 06:59 18:59 Intake Total 416 Balance 416 Weight 80.8 kg Intake: Oral 416 Other: Voiding Method Toilet # Voids 1 1 - Exam General: The patient is awake and alert, in no distress Eye: there is normal conjunctiva bilaterally. Neck: The neck is supple, there is no JVD. Cardiovascular: Normal S1-S2, no S3-S4, no murmurs. Respiratory: Lungs clear to auscultation bilaterally Gastrointestinal: Abdomen is soft, nontender Musculoskeletal: There is no pedal edema. Neurological:. Speech is normal. Skin: Skin is warm and dry - Labs CBC & Chem 7: 07/25/21 02:17 07/26/21 10:52 Labs: Abnormal Lab Results - Last 24 Hours (Table) 07/25/21 07/25/21 07/25/21 Range/Units 02:17 16:17 16:30 Sodium 118 L* (137-145) mmol/L Chloride 86 L (98-107) mmol/L Carbon Dioxide 21 L (22-30) mmol/L BUN 19 H (7-17) mg/dL Glucose 198 H (74-99) mg/dL POC Glucose (mg/dL) 193 H (75-99) mg/dL Hemoglobin A1c 10.8 H (4.0-6.0) % 07/25/21 07/26/21 07/26/21 Range/Units 20:00 02:45 06:23 Sodium (137-145) mmol/L Chloride (98-107) mmol/L Carbon Dioxide (22-30) mmol/L BUN (7-17) mg/dL Glucose (74-99) mg/dL POC Glucose (mg/dL) 249 H 150 H 134 H (75-99) mg/dL Hemoglobin A1c (4.0-6.0) % 07/26/21 07/26/21 Range/Units 10:52 11:39 Sodium 120 L (137-145) mmol/L Chloride (98-107) mmol/L Carbon Dioxide (22-30) mmol/L BUN (7-17) mg/dL Glucose (74-99) mg/dL POC Glucose (mg/dL) 131 H (75-99) mg/dL Hemoglobin A1c (4.0-6.0) % Microbiology - Last 24 Hours (Table) 07/25/21 07:16 Urine Culture - Preliminary Urine,Voided Gram Neg Bacilli Assessment and Plan Assessment: The patient is a 70-year-old female with a PMH of type II DM on insulin pump, A. fib on Eliquis, hypertension, recently diagnosed COVID-19 who presents to the emergency room with complaints of generalized fatigue. Patient was evaluated in the ER and admitted to the hospital for further management of her medical problems noted below Assessment/plan Severe hyponatremia -Suspected SIADH. Seen and evaluated by nephrology -Fluid restriction 2 L per day. SaltTabs 3 times a day. IV fluid discontinued soon after admission Uncomplicated UTI -Started on IV ceftriaxone awaiting urine culture COVID-19 -Positive testing vaccinated patient -Continue supportive care Lactic acidosis -Resolved Chronic conditions: Poorly controlled Type II DM (basal rate 3.10/hr), hypertension, A. fib -Discontinue insulin pump during this admission -Levemir 30 units daily at bedtime with lispro insulin sliding scale -A1c 10.8 -Continue the remaining home medications DVT prophylaxis -Judson CODE STATUS: Full Code Discussed with: Patient Anticipated discharge date: 2-[address]: Home
--- NOTE | 2021-07-26 14:12 | PN ---
PROGRESS NOTE Patient is seen for followup for hyponatremia. Her sodium level has been staying at 118 to 116 mEq/L. Patient was initially maintained on normal saline. This was later discontinued, as serum sodium did not improve. She is started on fluid restriction and there were plans for sodium chloride tablets. However, I do not see that on her med list. Blood pressure has been around 140-130 mmHg systolic. Serum sodium this morning came back at 120. PHYSICAL EXAMINATION: On examination today, blood pressure 142/68, heart rate 58 per minute. Patient is afebrile. She does not have any significant edema. LAW EXAMINER exam is grossly intact. Lungs and heart are not examined. LAB: Show sodium 120 today. Serum creatinine was 0.89 yesterday. ASSESSMENT: 1. Hyponatremia with possible SIADH with no improvement with normal saline. Currently maintained on fluid restriction with some improvement in serum sodium level. I will give her 1 dose of sodium chloride tab and repeat sodium later on this evening. If it does not improve further, patient will be given a dose of tolvaptan. She is also encouraged to increase oral protein intake. 2. Pyuria with urine culture growing Gram-negative bacilli. 3. Covid infection with positive PCR with chest x-ray showing mild changes bilaterally, interstitial changes bilaterally. O2 sats 99% on room air. PLAN: Fluid restriction and add sodium chloride tabs. Repeat sodium this evening. Increase oral protein intake. MMODL / IJN: [id number] /
[2021-07-26 14:40] VITALS: BMI 34.7
[2021-07-26] MEDS: SODIUM CHLORIDE TAB 1 GM TAB PO SCH ×2 (14:56→20:40)
[2021-07-26 16:28] LABS: Glucose,Whole Blood 199 mg/dL (75-99)
[2021-07-26 20:13] LABS: Glucose,Whole Blood 279 mg/dL (75-99)
[2021-07-26] MEDS ORDERED: INSULIN ASPART (NovoLOG) 100 UNIT/ML VIAL SQ PRN (20:32)
[2021-07-26] MEDS ORDERED: INSPUCOR MISCELLANE PRN (20:32)
[2021-07-26] MEDS ORDERED: INSULIN PUMP BASAL RATES 1 EACH MISC MISCELLANE PRN (20:32)
[2021-07-26] MEDS: ATORVASTATIN 40 MG TAB PO SCH (20:40)
[2021-07-26] MEDS: INSULIN PUMP MEAL BOLUS 1 UNIT MISC MISCELLANE SCH (20:41)
[2021-07-26] MEDS ORDERED: ONDANSETRON 4 MG/2 ML VIAL IVP STA (21:10)
[2021-07-27 02:12] LABS: Glucose,Whole Blood 69 mg/dL (75-99)
[2021-07-27 02:28] LABS: Glucose,Whole Blood 68 mg/dL (75-99)
[2021-07-27 02:48] LABS: Glucose,Whole Blood 65 mg/dL (75-99)
[2021-07-27 06:16] LABS: Glucose,Whole Blood 125 mg/dL (75-99)
[2021-07-27 08:10] LABS: Basophils % (A) 0 %; Eosinophils # (A) 0.3 k/uL (0-0.7); Eosinophils % (A) 4 %; HCT 41.7 % (34.0-46.0); HGB 13.7 gm/dL (11.4-16.0); Lymphocytes # (A) 1.5 k/uL (1.0-4.8); Lymphocytes % (A) 19 %; MCH 29.9 pg (25.0-35.0); MCHC 32.8 g/dL (31.0-37.0); MCV 91.1 fL (80.0-100.0); Mean Platelet Volume 8.3; Monocytes # (A) 0.4 k/uL (0-1.0); Monocytes % (A) 5 %; Neutrophils # (A) 5.5 k/uL (1.3-7.7); Neutrophils % (A) 70 %; Platelet Count 305 k/uL (150-450); RBC 4.58 m/uL (3.80-5.40); RDW 14.4 % (11.5-15.5); WBC 7.8 k/uL (3.8-10.6)
[2021-07-27 08:43] LABS: African American GFR (CKD) >90 (>60 ml/min/1.73 sqM); Anion Gap 11 mmol/L; Blood Urea Nitrogen 18 mg/dL (7-17); Calcium 9.3 mg/dL (8.4-10.2); Carbon Dioxide 25 mmol/L (22-30); Chloride 88 mmol/L (98-107); Glucose 180 mg/dL (74-99); Non-African American GFR(CKD) 84 (>60 ml/min/1.73 sqM); Potassium 4.2 mmol/L (3.5-5.1); Sodium 124 mmol/L (137-145)
[2021-07-27] MEDS: SODIUM CHLORIDE TAB 1 GM TAB PO SCH (10:05)
[2021-07-27] MEDS: METOPROLOL TARTRATE 25 MG TAB PO SCH ×2 (10:05→22:29)
[2021-07-27] MEDS: APIXABAN 2.5 MG TABLET PO SCH ×2 (10:06→22:29)
[2021-07-27] MEDS: INSULIN PUMP MEAL BOLUS 1 UNIT MISC MISCELLANE SCH ×4 (10:06→21:27)
[2021-07-27] MEDS ORDERED: ONDANSETRON 4 MG/2 ML VIAL IVP PRN (10:19)
[2021-07-27 11:44] LABS: Glucose,Whole Blood 150 mg/dL (75-99)
[2021-07-27] MEDS ORDERED: TOLVAPTAN 15 MG 1/2 TABLET PO ONE (12:30)
--- NOTE | 2021-07-27 13:46 | PN ---
PROGRESS NOTE Patient is seen for followup for hyponatremia. Her serum sodium has improved to 124 today. She was started on sodium chloride tabs. However, patient states that it made her feel nauseated. She has been trying to increase her oral intake and is maintained on fluid restriction. PHYSICAL EXAMINATION: On examination today, blood pressure 126/91, heart rate 67 per minute. She is afebrile. The patient has been euvolemic. Lungs and heart are not examined. MAINTENANCE REPAIRMAN exam grossly intact. LAB: Show sodium 124, potassium 4.2, chloride 88, BUN 18, creatinine 0.7, hemoglobin 13.7 g/dL. ASSESSMENT: 1. Hyponatremia initially hypovolemic currently euvolemic. Blood pressure had been low, currently not significantly low. Patient is maintained on sodium chloride tabs, which I will continue for now. I will decrease it to once a day as patient states she is nauseated. I will also give her a dose of tolvaptan today and patient is encouraged to increase oral protein intake and continue with fluid restriction. 2. Covid 19 positive PCR with no significant respiratory symptoms. Chest x-ray showed mild bilateral infiltrates. The patient is not requiring oxygen. 3. Gram-negative urinary tract infection, maintained on Rocephin. PLAN: Decrease sodium chloride tabs to once a day and add tolvaptan. Repeat sodium in a.m. Continue with fluid restriction and increase oral protein intake. MMODL / IJN: [id number] /
--- NOTE | 2021-07-27 15:02 | P.PN ---
Subjective Patient is doing well today. Sodium level is improving. Objective - Vital Signs Vital signs: Vital Signs Temp 98.1 F 07/27/21 12:02 Pulse 62 07/27/21 12:02 Resp 16 07/27/21 12:02 BP 169/71 07/27/21 12:02 Pulse Ox 100 07/27/21 12:02 Intake & Output 07/26/21 07/27/21 07/27/21 18:59 06:59 18:59 Intake Total 480 240 120 Balance 480 240 120 Weight 80.8 kg Intake: Oral 480 240 120 Other: Voiding Method Toilet Toilet Toilet # Voids 1 1 0 # Bowel Movements 0 - Exam General: The patient is awake and alert, in no distress Eye: there is normal conjunctiva bilaterally. Neck: The neck is supple, there is no JVD. Cardiovascular: Normal S1-S2, no S3-S4, no murmurs. Respiratory: Lungs clear to auscultation bilaterally Gastrointestinal: Abdomen is soft, nontender Musculoskeletal: There is no pedal edema. Neurological:. Speech is normal. Skin: Skin is warm and dry - Labs CBC & Chem 7: 07/27/21 07:50 07/27/21 07:50 Labs: Abnormal Lab Results - Last 24 Hours (Table) 07/26/21 07/26/21 07/26/21 Range/Units 16:27 17:47 20:12 Sodium 119 L* (137-145) mmol/L Chloride (98-107) mmol/L BUN (7-17) mg/dL Glucose (74-99) mg/dL POC Glucose (mg/dL) 199 H 279 H (75-99) mg/dL 07/27/21 07/27/21 07/27/21 Range/Units 02:10 02:27 02:47 Sodium (137-145) mmol/L Chloride (98-107) mmol/L BUN (7-17) mg/dL Glucose (74-99) mg/dL POC Glucose (mg/dL) 69 L 68 L 65 L (75-99) mg/dL 07/27/21 07/27/21 07/27/21 Range/Units 06:15 07:50 11:44 Sodium 124 L (137-145) mmol/L Chloride 88 L (98-107) mmol/L BUN 18 H (7-17) mg/dL Glucose 180 H (74-99) mg/dL POC Glucose (mg/dL) 125 H 150 H (75-99) mg/dL Microbiology - Last 24 Hours (Table) 07/25/21 07:16 Urine Culture - Final Urine,Voided Escherichia coli Assessment and Plan Assessment: The patient is a 70-year-old female with a PMH of type II DM on insulin pump, A. fib on Eliquis, hypertension, recently diagnosed COVID-19 who presents to the emergency room with complaints of generalized fatigue. Patient was evaluated in the ER and admitted to the hospital for further management of her medical problems noted below Assessment/plan Severe hyponatremia -Suspected SIADH. Seen and evaluated by nephrology -Fluid restriction 2 L per day. SaltTabs 3 times a day. IV fluid discontinued soon after admission Uncomplicated UTI -Started on IV ceftriaxone day #3. Urine culture showed correa-susceptible E. coli COVID-19 -Positive testing vaccinated patient -Continue supportive care Lactic acidosis -Resolved Chronic conditions: Poorly controlled Type II DM (basal rate 3.10/hr), hypertension, A. fib -Maintained on insulin pump -A1c 10.8 -Need close follow-up with endocrinology DVT prophylaxis -Eliquis CODE STATUS: Full Code Discussed with: Patient Anticipated discharge date: 2-[address]: Home
[2021-07-27 16:31] LABS: Glucose,Whole Blood 155 mg/dL (75-99)
[2021-07-27 19:57] LABS: Glucose,Whole Blood 97 mg/dL (75-99)
[2021-07-27] MEDS: ATORVASTATIN 40 MG TAB PO SCH (22:29)
[2021-07-28 02:03] LABS: Glucose,Whole Blood 58 mg/dL (75-99)
[2021-07-28 02:27] LABS: Glucose,Whole Blood 69 mg/dL (75-99)
[2021-07-28 07:15] LABS: Glucose,Whole Blood 110 mg/dL (75-99)
[2021-07-28] MEDS: METOPROLOL TARTRATE 25 MG TAB PO SCH ×2 (07:52→20:18)
[2021-07-28] MEDS: INSULIN PUMP MEAL BOLUS 1 UNIT MISC MISCELLANE SCH ×4 (07:53→20:39)
[2021-07-28] MEDS: APIXABAN 2.5 MG TABLET PO SCH ×2 (07:53→20:18)
[2021-07-28] MEDS: SODIUM CHLORIDE TAB 1 GM TAB PO SCH (08:37)
[2021-07-28 10:09] LABS: ALT 21 U/L (4-34); AST 28 U/L (14-36); African American GFR (CKD) 88 (>60 ml/min/1.73 sqM); Albumin 3.7 g/dL (3.5-5.0); Albumin/Globulin Ratio 1.3; Alkaline Phosphatase 111 U/L (38-126); Anion Gap 9 mmol/L; Blood Urea Nitrogen 18 mg/dL (7-17); Calcium 9.6 mg/dL (8.4-10.2); Carbon Dioxide 26 mmol/L (22-30); Chloride 92 mmol/L (98-107); Globulin 2.9 g/dL; Glucose 168 mg/dL (74-99); Non-African American GFR(CKD) 76 (>60 ml/min/1.73 sqM); Potassium 4.8 mmol/L (3.5-5.1); Sodium 127 mmol/L (137-145); Total Bilirubin 0.3 mg/dL (0.2-1.3); Total Protein 6.6 g/dL (6.3-8.2)
[2021-07-28 11:40] LABS: Glucose,Whole Blood 127 mg/dL (75-99)
--- NOTE | 2021-07-28 11:50 | PN ---
PROGRESS NOTE Patient is seen for followup for hyponatremia. Patient is maintained on sodium chloride tabs. She did get a dose of tolvaptan yesterday. Her sodium this morning is up to 127. Case is discussed with nursing staff. Patient is not examined, as she is COVID-positive. Currently she is not in her room and is in the bathroom. Vital signs are reviewed. Blood pressure 156/73, heart rate 57 per minute. No change in exam as per nursing staff. Labs are reviewed. Sodium 127, potassium 4.8, BUN 18, creatinine 0.8. ASSESSMENT: 1. Hyponatremia, initially hypovolemic, but currently euvolemic and associated with poor solute intake, currently improving. Patient is maintained on sodium chloride tabs and she did get a dose of tolvaptan yesterday. I will continue with the sodium chloride tabs for now. Repeat sodium in a.m. Maintain fluid restriction and continue to encourage increased oral protein intake. 2. COVID-19 positive PCR with chest x-ray showing mild bilateral interstitial markings. Currently not hypoxic and not requiring oxygen. MMODL / IJN: [id number] /
[2021-07-28 16:43] LABS: Glucose,Whole Blood 64 mg/dL (75-99)
[2021-07-28 17:41] LABS: Glucose,Whole Blood 81 mg/dL (75-99)
[2021-07-28] MEDS: ACETAMINOPHEN TAB 325 MG TAB PO PRN (19:14)
[2021-07-28] MEDS: ATORVASTATIN 40 MG TAB PO SCH (20:19)
[2021-07-28 20:21] LABS: Glucose,Whole Blood 160 mg/dL (75-99)
[2021-07-28] MEDS ORDERED: ALPRAZolam 0.5 MG TAB PO PRN (21:10)
--- NOTE | 2021-07-28 21:14 | P.PN ---
Subjective Progress Note Date: 07/28/21 Patient is a 70-year-old female history of diabetes mellitus type 2 on insulin pump, A. fib anticoagulated with Eliquis, hypertension, and COVID-19 who presented to the ER with complaints of fatigue. She received monoclonal antibodies on 07/21 and states she has felt fatigued with a diminished appetite since then. She had not been eating much but had been drinking lots of water. She has been taking antidepressant for several years. In the ER she underwent an extensive evaluation. She was found to have severe hyponatremia and her sodium level went from 118-116 with 1 L of fluid. She continued to have positive coping tests. Chest x-ray showed mild coarsening of lung markings. She was admitted for further workup of her hyponatremia. She was taken off of her Effexor. Nephrology was consulted. She was subsequently diagnosed with SIADH. Her diuretics had been held. She was started on a fluid restriction, and then sodium chloride tablets, and finally received 1 dose of Tolvaptam. Patient seen and examined at bedside. She is feeling much better. She is eating and drinking well. No diarrhea or upset stomach. She denies any nausea or vomiting. No shortness of breath. We discussed that she was on Effexor which can lead to SIADH and euvolemic hyponatremia. I do believe this added to her Acute illness with covid. We discussed a off of Effexor and utilizing Xanax as needed. General: Ill appearing, no distress, appears at stated age Derm: warm, dry Head: atraumatic, normocephalic, symmetric Eyes: EOMI, no lid lag, anicteric sclera Mouth: no lip lesion, mucus membranes moist Cardiovascular: S1S2 reg, no murmur, positive posterior tibial pulse bilateral, Lungs: Decreased breath sounds bilateral, no rhonchi, no rales , no accessory muscle use Abdominal: soft, nontender to palpation, no guarding, no appreciable organomegaly Ext: no gross muscle atrophy, no edema, no contractures Neuro: CN II-XI grossly intact, no focal neuro deficits Psych: Alert, oriented, appropriate affect Hyponatremia, likely euvolemic versus poor solute intake -Continue off of Effexor -Continue off of hydrochlorothiazide and spironolactone at -Nephrology recommendations -Continue with sodium chloride tablets -Status post 1 dose of Samsca Diabetes mellitus type 2 -Continue with insulin pump -Outpatient follow-up -Follow blood sugars -Resume Annelise on discharge, Jolie Atrial fibrillation -Rate controlled -Continue with metoprolol -Eliquis Dyslipidemia -Lipitor E. Coli UTI - Rocpehin Treat for 5 days Acute metabolic encephalopathy, resolved Anticipate home in AM if cleared by nephrology. Objective - Vital Signs Vital signs: Vital Signs Temp 99.2 F 07/28/21 18:00 Pulse 72 07/28/21 18:00 Resp 16 07/28/21 18:00 BP 149/75 07/28/21 18:00 Pulse Ox 98 07/28/21 18:00 Intake & Output 07/28/21 07/28/21 07/29/21 06:59 18:59 06:59 Intake Total 240 640 Balance 240 640 Intake: Intake, IV Titration 50 Amount cefTRIAXone 1 gm In 50 Sodium Chloride 0.9% 50 ml @ 100 mls/hr IVPB Q24HR LUCIO Rx#:[id number] Oral 240 590 Other: Voiding Method Toilet # Voids 2 - Labs CBC & Chem 7: 07/27/21 07:50 07/28/21 09:18 Labs: Abnormal Lab Results - Last 24 Hours (Table) 07/28/21 07/28/21 07/28/21 Range/Units 02:02 02:26 07:09 Sodium (137-145) mmol/L Chloride (98-107) mmol/L BUN (7-17) mg/dL Glucose (74-99) mg/dL POC Glucose (mg/dL) 58 L 69 L 110 H (75-99) mg/dL 07/28/21 07/28/21 07/28/21 Range/Units 09:18 11:39 16:42 Sodium 127 L (137-145) mmol/L Chloride 92 L (98-107) mmol/L BUN 18 H (7-17) mg/dL Glucose 168 H (74-99) mg/dL POC Glucose (mg/dL) 127 H 64 L (75-99) mg/dL 07/28/21 Range/Units 20:20 Sodium (137-145) mmol/L Chloride (98-107) mmol/L BUN (7-17) mg/dL Glucose (74-99) mg/dL POC Glucose (mg/dL) 160 H (75-99) mg/dL
[2021-07-29 02:01] LABS: Glucose,Whole Blood 62 mg/dL (75-99)
[2021-07-29 02:29] LABS: Glucose,Whole Blood 72 mg/dL (75-99)
[2021-07-29 04:58] LABS: Glucose,Whole Blood 60 mg/dL (75-99)
[2021-07-29 05:22] LABS: Glucose,Whole Blood 58 mg/dL (75-99)
[2021-07-29 05:58] LABS: Glucose,Whole Blood 76 mg/dL (75-99)
[2021-07-29 06:56] LABS: HCT 43.3 % (34.0-46.0); HGB 13.6 gm/dL (11.4-16.0); MCH 29.1 pg (25.0-35.0); MCHC 31.5 g/dL (31.0-37.0); MCV 92.5 fL (80.0-100.0); Mean Platelet Volume 7.7; Platelet Count 335 k/uL (150-450); RBC 4.68 m/uL (3.80-5.40); RDW 14.4 % (11.5-15.5); WBC 5.8 k/uL (3.8-10.6)
[2021-07-29 06:57] LABS: Glucose,Whole Blood 105 mg/dL (75-99)
[2021-07-29] MEDS: INSULIN PUMP MEAL BOLUS 1 UNIT MISC MISCELLANE SCH ×2 (06:58→12:37)
[2021-07-29 07:08] LABS: African American GFR (CKD) >90 (>60 ml/min/1.73 sqM); Anion Gap 7 mmol/L; Blood Urea Nitrogen 16 mg/dL (7-17); Calcium 9.9 mg/dL (8.4-10.2); Carbon Dioxide 28 mmol/L (22-30); Chloride 97 mmol/L (98-107); Glucose 103 mg/dL (74-99); Non-African American GFR(CKD) 88 (>60 ml/min/1.73 sqM); Potassium 5.3 mmol/L (3.5-5.1); Sodium 132 mmol/L (137-145)
[2021-07-29 08:12] LABS: ALT 27 U/L (4-34); AST 31 U/L (14-36); Albumin 3.7 g/dL (3.5-5.0); Albumin/Globulin Ratio 1.3; Alkaline Phosphatase 112 U/L (38-126); Globulin 2.9 g/dL; Total Bilirubin 0.4 mg/dL (0.2-1.3); Total Protein 6.6 g/dL (6.3-8.2)
[2021-07-29] MEDS: APIXABAN 2.5 MG TABLET PO SCH (08:39)
[2021-07-29] MEDS: SODIUM CHLORIDE TAB 1 GM TAB PO SCH (08:40)
[2021-07-29] MEDS: METOPROLOL TARTRATE 25 MG TAB PO SCH (08:40)
[2021-07-29 09:06] LABS: Glucose,Whole Blood 163 mg/dL (75-99)
[2021-07-29 10:12] VITALS: RESP 18
[2021-07-29 11:49] LABS: Glucose,Whole Blood 96 mg/dL (75-99)
--- NOTE | 2021-07-29 12:42 | PN ---
PROGRESS NOTE Patient is seen for followup for hyponatremia. She received a dose of tolvaptan yesterday. Her sodium is up to 132 today. On examination, patient is comfortable. She denies any significant complaints. Blood pressure this morning 164/72, heart rate 65 per minute. She appears euvolemic. Labs show sodium 132 today with potassium 5.3, chloride 97. ASSESSMENT: 1. Hyponatremia associated with poor solute intake, initially hypovolemic. Patient was maintained on sodium chloride tabs. Her blood pressure is high today. I will discontinue the sodium chloride. She did get a dose of tolvaptan yesterday. This morning sodium is 132. She could be discharged, but patient will be maintained on fluid restriction post discharge. She should have a serum sodium drawn in about 2 days post discharge. Patient is also encouraged to maintain good oral protein intake. 2. Hypertension. I would hold the lisinopril and Aldactone for now, given the hyperkalemia. Patient is also advised to avoid dtfp-fqvukylgr-wbuvveajuq foods for the next few days. Repeat labs should be done in about 2 to 3 days post discharge, and if blood pressure remains elevated, patient can resume her LIZZIE inhibitors. She should also hold off on her thiazide diuretics for now. PLAN: Okay to discharge patient. Repeat labs in 2 days. Hold lisinopril and Aldactone due to mild hyperkalemia and hold thiazide diuretics as well. Maintain fluid restriction and repeat sodium in 2 days. MMODL / IJN: [id number] /
[2021-07-29 14:37] LABS: Glucose,Whole Blood 94 mg/dL (75-99)
[2021-07-29 14:53] VITALS: BP 165/86; PULSE 63; TEMP 97.9
--- NOTE | 2021-07-29 20:59 | P.DS ---
Providers Date of admission: 07/24/21 20:19 Expected date of discharge: 07/29/21 Attending physician: Marilu Boo MD Consults: 07/25/21 02:07 Consult Physician Urgent Consulting Provider: Barrie Pal Consult Reason/Comments: hypoNa Do you want consulting provider notified?: Yes Primary care physician: Viraj Adame [facility] Course: Discharge Diagnosis: Hyponatremia, likely SIADH versus poor solute intake Diabetes mellitus type 2 Dyslipidemia E. coli UTI Acute metabolic encephalopathy Hospital Course: Patient is a 70-year-old female history of diabetes mellitus type 2 on insulin pump, A. fib anticoagulated with Eliquis, hypertension, and COVID-19 who presented to the ER with complaints of fatigue. She received monoclonal antibodies on 07/21 and states she has felt fatigued with a diminished appetite since then. She had not been eating much but had been drinking lots of water. She has been taking antidepressant for several years. In the ER she underwent an extensive evaluation. She was found to have severe hyponatremia and her sodium level went from 118-116 with 1 L of fluid. She continued to have positive coping tests. Chest x-ray showed mild coarsening of lung markings. She was admitted for further workup of her hyponatremia. She was taken off of her Effexor. Nephrology was consulted. She was subsequently diagnosed with euvolemic hyponatremia, wilian GARY. Her diuretics had been held. She was started on a fluid restriction, and then sodium chloride tablets, and finally received 1 dose of Tolvaptam. Her Sodium levels stablazied and she was doing well. She was determined stable for discharge home. Follow-up Dr. Casas next week, Labs in 2 days (Sat) with results to Dr. Casas. Off Effexor/HCTZ/Spironolactone, 1200 cc fluid restriction Patient seen and examined at bedside. Patient feels anxious about going home with all her medication changes. We discussed her plan of care and she has an agreement. She has no shortness breath no nausea no vomiting. Anxiety appears better. She is aware that she will need to discuss with Dr. Adame what antidepressant to use as she has experienced hyponatremia on Effexor. Vital signs reviewed and stable. General: non toxic, no distress, appears at stated age Derm: warm, dry Head: atraumatic, normocephalic, symmetric Eyes: EOMI, no lid lag, anicteric sclera Mouth: no lip lesion, mucus membranes moist Cardiovascular: S1S2 reg, no murmur, positive posterior tibial pulse bilateral, Lungs: CTA bilateral, no rhonchi, no rales , no accessory muscle use Abdominal: soft, nontender to palpation, no guarding, no appreciable organomegaly Ext: no gross muscle atrophy, trace edema, no contractures Neuro: CN II-XI grossly intact, no focal neuro deficits Psych: Alert, oriented, appropriate affect A total of 45 minutes of time were spent preparing this complex discharge summary . Patient Condition at Discharge: Fair Plan - Discharge Summary Discharge Rx Participant: No New Discharge Prescriptions: Continue sitaGLIPtin [Januvia] 100 mg PO DAILY Dapagliflozin Propanediol [Farxiga] 10 mg PO DAILY Insulin Glulisine (For Pump) [Apidra (For Pump)] 0.01 units SQ-PUMP CONTINUOUS Atorvastatin [Lipitor] 40 mg PO HS #30 tab Metoprolol Tartrate [Lopressor] 25 mg PO BID #60 tablet Cholecalciferol [Vitamin D3 (25 Mcg = 1000 Iu)] 25 mcg PO DAILY Cetirizine HCl [Zyrtec] 10 mg PO DAILY Allopurinol [Zyloprim] 100 mg PO HS Apixaban [Eliquis] 2.5 mg PO BID Discontinued Venlafaxine HCl [Effexor] 225 mg PO DAILY Spironolactone 50 mg PO DAILY Lisinopril-Hctz 20-12.5 mg [Zestoretic 20-12.5] 1 tab PO BID Discharge Medication List Dapagliflozin Propanediol [Farxiga] 10 mg PO DAILY 03/15/19 [History] Insulin Glulisine (For Pump) [Apidra (For Pump)] 0.01 units SQ-PUMP CONTINUOUS 03/15/19 [History] sitaGLIPtin [Januvia] 100 mg PO DAILY 03/15/19 [History] Atorvastatin [Lipitor] 40 mg PO HS #30 tab 03/20/19 [Rx] Metoprolol Tartrate [Lopressor] 25 mg PO BID #60 tablet 03/20/19 [Rx] Allopurinol [Zyloprim] 100 mg PO HS 07/24/21 [History] Apixaban [Eliquis] 2.5 mg PO BID 07/24/21 [History] Cetirizine HCl [Zyrtec] 10 mg PO DAILY 07/24/21 [History] Cholecalciferol [Vitamin D3 (25 Mcg = 1000 Iu)] 25 mcg PO DAILY 07/24/21 [History] Follow up Appointment(s)/Referral(s): Yoli Casas MD [STAFF PHYSICIAN] - 08/05/21 1:20 pm Viraj Adame MD [Primary Care Provider] - 1-2 days (Please call Office for appointment.) Phoebe Jordan [NON-STAFF] - As Needed Ambulatory/Diagnostic Orders: Basic Metabolic Panel [LAB.AMB] Time Frame: 4 Days, Location: None Selected Patient Instructions/Handouts: Hyponatremia (DC) Activity/Diet/Wound Care/Special Instructions: Activity: as tolerated Diet: carb consistent, fluid restriction 1200 cc Special Instructions: Repeat Labs on Monday or Monday DO not take lisinopril-HCTZ of Spironolactone until directed to do so by nephrology, but don't throw medication away. Discharge Disposition: HOME SELF-CARE
== END 2021-07-29 17:12 | disposition home or self-care (01) | DRG 643 ==
LOC: EC 17:30 → 3SCARD 20:19 → 4SSUR 07-27 16:11
PROVIDERS: ADMIT Internal Medicine; ATTEND Internal Medicine
DX: E22.2 Syndrome of inappropriate secretion of antidiuretic hormone (principal); U07.1 COVID-19; G93.41 Metabolic encephalopathy; J12.82 Pneumonia due to coronavirus disease 2019; E87.2 Acidosis; N39.0 Urinary tract infection, site not specified; B96.20 Unspecified Escherichia coli [E. coli] as the cause of diseases classified elsewhere; E11.65 Type 2 diabetes mellitus with hyperglycemia; E78.5 Hyperlipidemia, unspecified; E86.1 Hypovolemia; E87.5 Hyperkalemia; F32.9 Major depressive disorder, single episode, unspecified; F41.9 Anxiety disorder, unspecified; I10 Essential (primary) hypertension; I48.91 Unspecified atrial fibrillation; Z79.01 Long term (current) use of anticoagulants; Z79.4 Long term (current) use of insulin; Z79.899 Other long term (current) drug therapy; Z82.49 Family history of ischemic heart disease and other diseases of the circulatory system; Z83.3 Family history of diabetes mellitus; Z90.710 Acquired absence of both cervix and uterus; Z96.41 Presence of insulin pump (external) (internal)
CPT/HCPCS: 36415; 71046; 80048; 80053; 81001; 82570; 83036; 83605; 83735; 83930; 83935; 84295; 84443; 84484; 85025; 85027; 85610; 85730; 87077; 87086; 87186; 87635; 93005; 96360; 96361; 99285

== ENCOUNTER → 2022-03-24 | Outpatient (CLI) | payer MEDICARE | END | disposition home or self-care (01) | LOC: LABWHC1 14:06 | PROVIDERS: ATTEND Family Medicine | DX: E87.1 Hypo-osmolality and hyponatremia (principal) | CPT/HCPCS: 36415; 84588 ==

== ENCOUNTER → 2022-04-07 | Outpatient (CLI) | payer MEDICARE ==
--- NOTE | 2022-04-08 14:06 | USB ---
Reason for Exam: Clinical finding. Last mammogram was performed 1 year(s) and 1 month(s) ago. Indicated Problems: Lump or thickening of the right side. Patient History: Menarche at age 14. Patient has no children. Left ovary removed at age 47. Right ovary removed at age 47. Hysterectomy at age 47. Postmenopausal. Estrogen for 6 months starting at age 47. Progesterone for 6 months starting at age 47. Excisional Biopsy on the Right side. Benign Excisional Biopsy on the right side. 02/28/2020, Benign Core Biopsy on the right side. Sister had breast cancer, age 61. Mother had breast cancer, age 48. Risk Values: Chanell 5 year model risk: 8.8%. NCI Lifetime model risk: 24.7%. Prior Study Comparison: 02/05/2020 Bilateral Diagnostic Mammogram, [facility]. 09/22/2020 Right Diagnostic Mammogram, [facility]. 03/11/2021 Bilateral Screening Mammogram, [facility]. Tissue Density: There are scattered fibroglandular densities. Findings: Analyzed By CAD. Mammogram Stable benign calcifications seen bilaterally. No suspicious clusters noted. Asymmetric density upper outer right breast remain stable.. Technique: Method: Whole Breast Handheld. Patient Position: Supine. Findings: The whole breast of the right breast was scanned. Scanned right breast, no abnormality seen by ultrasound.No discrete solid or cystic mass is identified. Overall Assessment: Benign, BI-RAD 2 Assessment: MG 3D diag mammo w/cad DELTA - Bilateral: Incomplete: need additional imaging evaluation, BI-RAD 0 - Right. US breast RT - Right: Benign, BI-RAD 2. Management: Screening Mammogram of both breasts in 1 year. A clinical breast exam by your physician is recommended on an annual basis and results should be correlated with mammographic findings. Results were given to the patient verbally at the time of exam. Electronically signed and approved by: Haseeb Domingo M.D. Radiologis
== END | disposition home or self-care (01) ==
LOC: RADMAMWWP 13:06
PROVIDERS: ATTEND Family Medicine
DX: R92.1 Mammographic calcification found on diagnostic imaging of breast (principal); Z78.0 Asymptomatic menopausal state; Z80.3 Family history of malignant neoplasm of breast
CPT/HCPCS: 77066; 76641; G0279; 77062

== ENCOUNTER → 2022-05-20 | Outpatient (CLI) | payer MEDICARE | END | disposition home or self-care (01) | LOC: RADPETMAIN 15:04 | PROVIDERS: ATTEND Internal Medicine Critical Care Medicine | DX: Z53.9 Procedure and treatment not carried out, unspecified reason (principal) ==

== ENCOUNTER → 2022-06-10 | Outpatient (CLI) | payer MEDICARE ==
--- NOTE | 2022-06-15 07:35 | PE ---
EXAMINATION TYPE: PET CT fusion skull to thigh DATE OF EXAM: 06/10/2022 CLINICAL INDICATION:Female, 71 years old with history of R918; TECHNIQUE: Following the intravenous administration of 10.04 mCi of F-18 FDG, whole body images are performed from the skull base to the midthigh. Images are reviewed on the computer in the coronal, a xial, and sagittal planes. Reconstructed rotating images are created on independent workstation and reviewed on the computer. A non-contrast CT is performed in conjunction with the PET scan. Glucose level 145 mg/dL COMPARISON: CT None, PET/CT none FINDINGS: Mediastinal SUV mean is 1.3. Hepatic parenchyma SUV mean is 2.3. SKULL BASE AND NECK: No suspicious FDG activity. There is left posterior neck lymph node without inc reased FDG activity measuring 9 mm in short axis.. CHEST, MEDIASTINUM, AND HILAR REGION: No suspicious FDG activity. Soft tissue nodule in the left back measuring 3.0 x 3.1 cm without increased FDG activity. ABDOMEN AND PELVIS: No suspicious FDG activity. OSSEOUS STRUCTURES: No suspicious FDG activity. OTHER CT: Bilateral aphakia. Atherosclerosis of the arterial vasculature. Left atrial appendage occlu marciano device. Scattered pulmonary nodules are seen throughout the lungs which are less than 1 and are below sensitivity for PET/CT. Esophageal wall thickening. Gastric lap band is present. Soft tissue FD G activity the subcutaneous tissues anteriorly about the represent injection granuloma changes. IMPRESSION: 1. Multiple pulmonary nodules of which are below the threshold for PET/CT. 2. Abnormal FDG activity in the Floor the mouth/tongue correlate with physical exam.
== END | disposition home or self-care (01) ==
LOC: RADPETMAIN 08:00
PROVIDERS: ATTEND Internal Medicine Critical Care Medicine
DX: R91.8 Other nonspecific abnormal finding of lung field (principal); R93.0 Abnormal findings on diagnostic imaging of skull and head, not elsewhere classified
CPT/HCPCS: 78815; A9552

== ENCOUNTER → 2023-08-01 | Outpatient (CLI) | payer MEDICARE ==
--- NOTE | 2023-08-01 10:53 | US ---
EXAMINATION TYPE: US arterial LE single level DATE OF EXAM: 08/01/2023 9:49 AM CLINICAL INDICATION: Female, 72 years old with history of E13.621 DIABETIC FOOT ULCER; Non healing wo und right lateral foot x couple weeks History of: Smoker: Never Hypertension: Yes Diabetic: Yes Hyperlipidemia: Yes TIA/CVA: No Previous Vascular Surgery: No IA: No Doppler Waveforms: Right: Multiphasic Left: Multiphasic Right Brachial Pressure: 165 Left Brachial Pressure: 165 Ankle-Brachial Indices: Right: 1.07 Left: CNO Toe Brachial Indices: Right: 0.76 Left: 0.67 IMPRESSION: 1. Normal right ankle brachial index. 2. Unable to obtain left ankle-brachial index. Normal TBI bilaterally.
== END | disposition home or self-care (01) ==
LOC: RADUSWWP 08:58
PROVIDERS: ATTEND Family Medicine
DX: E13.621 Other specified diabetes mellitus with foot ulcer (principal)
CPT/HCPCS: 93922

== ENCOUNTER → 2023-11-08 | Outpatient (CLI) | payer MEDICARE ==
--- NOTE | 2023-11-08 14:12 | CT ---
EXAMINATION TYPE: CT brain wo con DATE OF EXAM: 11/08/2023 COMPARISON: None available. HISTORY: Head trauma. CT DLP: 1172.4 mGycm Automated exposure control for dose reduction was used. FINDINGS: There is no acute intracranial hemorrhage, mass, mass effect, midline shift, extra-axial fluid collec tion or hydrocephalus. The jeffery-white distinction is intact without evidence of an acute major vessel infarct. The visualized paranasal sinuses and mastoid air cells are clear. IMPRESSION: NO ACUTE INTRACRANIAL PROCESS.
== END | disposition home or self-care (01) ==
LOC: RADCTMAIN 13:16
PROVIDERS: ATTEND Family Medicine
DX: S09.90XD Unspecified injury of head, subsequent encounter (principal); X58.XXXD Exposure to other specified factors, subsequent encounter
CPT/HCPCS: 70450

== ENCOUNTER → 2023-11-24 | Outpatient (CLI) | payer MEDICARE ==
--- NOTE | 2023-11-24 12:12 | US ---
EXAMINATION TYPE: US venous doppler duplex LE RT DATE OF EXAM: 11/24/2023 11:20 AM COMPARISON: NONE CLINICAL INDICATION: Female, 73 years old with history of RLE; R22.40 LOCALIZED SWELLING, MASS AND SHONNA MP; rt calf pain and swelling SIDE PERFORMED: right TECHNIQUE: The lower extremity deep venous system is examined utilizing real time linear array sonog jose with graded compression, doppler sonography and color-flow sonography. VESSELS IMAGED: Common Femoral Vein Deep Femoral Vein Greater Saphenous Vein * Femoral Vein Popliteal Vein Small Saphenous Vein * Proximal Calf Veins (* superficial vessels) Right Leg: Negative for lower extremity deep venous thrombosis Results called to Margot at the office at the time of the exam. IMPRESSION: 1. Right lower extremity ultrasound negative for deep venous thrombosis.
== END | disposition home or self-care (01) ==
LOC: RADUSWWP 11:19
PROVIDERS: ATTEND Family Medicine
DX: M79.661 Pain in right lower leg (principal); R22.41 Localized swelling, mass and lump, right lower limb

== ENCOUNTER → 2024-01-11 | Outpatient (CLI) | payer MEDICARE ==
--- NOTE | 2024-01-12 16:11 | CT ---
EXAMINATION TYPE: CT elbow RT wo con DATE OF EXAM: 01/11/2024 COMPARISON: None HISTORY: pain R elbow, fall CT DLP: 301.1 mGycm Automated exposure control for dose reduction was used. Contrast: None Technique: Right elbow was examined in the axial plane 3 mm thick sections. Reconstructed images in t he coronal and sagittal planes are reviewed. FINDINGS: Radius aligns normally with the humerus. The olecranon appears intact. There appears to be a supracondylar fracture present with some rotation of the distal fracture fragme nt in relation to the metaphyseal humerus. Joint spaces appear preserved. No significant joint effus ion is evident. IMPRESSION: 1. SUPRACONDYLAR FRACTURE. SOME ROTATION OF THE DISTAL FRACTURE FRAGMENT IN RELATION TO THE PROXIMAL FRACTURE FRAGMENT MAY BE PRESENT.
== END | disposition home or self-care (01) ==
LOC: RADCTMAIN 12:30
PROVIDERS: ATTEND Orthopaedic Surgery
DX: S42.411A Displaced simple supracondylar fracture without intercondylar fracture of right humerus, initial encounter for closed fracture (principal); X58.XXXA Exposure to other specified factors, initial encounter

== ENCOUNTER 2024-01-29 10:25 | Inpatient (IN) | payer MEDICARE ==
[2024-01-29] MEDS: LACTATED RINGERS 1,000 ML IV SCH (11:07)
[2024-01-29 11:22] LABS: Glucose,Whole Blood 207 mg/dL (70-110)
[2024-01-29] MEDS: ONDANSETRON 4 MG/2 ML VIAL IVP ONE (11:22)
[2024-01-29] MEDS: MIDAZOLAM 2 MG/2 ML VIAL IVP ONE (11:54)
--- NOTE | 2024-01-29 12:02 | P.ANPRN ---
Procedure Note - Anesthesia - Nerve Block Performed Right Supraclavicular Single Time Out Performed: Yes ([id number]) Date of Procedure: 01/29/24 Procedure Start Time: 11:55 Procedure Stop Time: 11:59 Location of Patient: PreOp Indication: Acute Post-Operative Pain, Requested by Surgeon Sedation Type: Sedate with meaningful contact maintained Preparation: Sterile Prep, Sterile Dressing Position: Sitting Catheter: None Needle Types: Pajunk Needle Gauge: Other (see comment) (22G) Ultrasound used to visualize needle placement: Yes Ultrasound used to observe medication spread: Yes Injectate: 0.5% Ropivacaine (see comment for volume) (20ml) Blood Aspirated: No Pain Paresthesia on Injection Noted: No Resistance on Injection: Normal Image Stored and Saved: Yes Events: Uneventful and Well Tolerated
[2024-01-29] MEDS: hydrALAZINE HCL 20 MG/ML 1 ML VIAL IVP ONE ×3 (12:20→12:39)
[2024-01-29] MEDS: ceFAZolin 1,000 MG in SODIUM CHLORIDE 0.9% 1,000 ML IRRIGATION ONE (12:41)
[2024-01-29] MEDS: LACTATED RINGERS 1,000 ML IV ONE (13:46)
--- NOTE | 2024-01-29 14:58 | P.OP ---
Date of Procedure: 01/29/24 Procedure(s) Performed: PREOPERATIVE DIAGNOSES: 1. Right distal humeral supracondylar fracture, displaced POSTOPERATIVE DIAGNOSES: 1. Right distal humeral supracondylar fracture, displaced PROCEDURES PERFORMED: 1. Right distal humeral fracture open reduction internal fixation using periarticular plates from [employer]; 2. Olecranon osteotomy (for exposure) with screw fixation ANESTHESIA: Gen. PHOTO CHECKER AND ASSEMBLER: Nena Chapa PA-C (assistance with: Patient positioning, retraction, exposure, fixation, hemostasis, closure, dressing, splint) COMPLICATIONS: None ESTIMATED BLOOD LOSS: Approximately 100 ml DISPOSITION: To post-anesthesia care unit INDICATIONS: Kalina is a 73 year old female with a history of falling about 4 weeks ago and sustaining a displaced supracondylar humerus fracture. Surgery has been delayed until now due to clearance issues. I have advised open reduction and fixation. I have explained the risks and potential complications of this surgery as being inclusive of but not limited to bleeding, infection, scarring, discomfort, blood vessel and/or nerve damage, radial nerve injury, malunion, nonunion, stiffness, hardware irritation, deformity, rotational abnormality, need for further surgery, and other risks. We have extensively discussed the risk of stiffness of the shoulder and elbow joints, which is something that often occurs with these kinds of injuries. We have discussed the need for rehabilitation and occupational therapy to regain motion. The consent form has been signed. PROCEDURE: After appropriate consent was obtained, the patient was taken to the operating room placed in the supine position. Anesthesia was initiated, and after confirmation of adequate anesthesia, the patient was carefully positioned in the lateral decubitus position. Care was taken to make sure that all pressure points were adequately padded. Bolster was secured with Coban for a posterior approach to the humerus. Prepping and draping were completed in the usual aseptic fashion using ChloraPrep, with the arm being prepped free. Timeout was called, confirming patient identity, side, procedure, and administration of antibiotics. Landmarks were outlined with a skin marking pen including medial and lateral epicondyles, path of ulnar nerve, and olecranon. Incision was created over the posterior aspect of the humerus for a length of approximately 14 cm. The incision was carried down through skin and into subcu tissues until muscular fascia was encountered. The triceps fascia was exposed. The ulnar nerve was carefully exposed, mobilized and retracted in the ulnar direction and protected with vessel loops. Predrilling and tapping of the proximal ulna for eventual placement of a 7.0 mm cannulated screw was performed for the olecranon osteotomy. The osteotomy was created with an oscillating saw and finished with osteotomes to create a seamless articular surface upon repair. The triceps fascia was carefully mobilized medially and laterally to expose the fracture site. Extensive organizing hematoma was removed to adequately assess and reduce the fracture site. The fracture was mobilized and reduction was accomplished with gentle longitudinal traction, [id number] reduction forcep, and pinned provisionally with a 2.0 mm pin. Once an adequate reduction had been obtained, periarticular plates from [employer] were used to secure the fracture both medially and laterally. Care was taken to avoid any entrapment of the ulnar nerve with direct visualization. Both plates were able to be placed uneventfully, with proximal bicortical nonlocking 3.5 mm screws for the posterolateral plate and 2.7 mm locking screws for the distal fragment. The medial plate was placed with a combination of nonlocking 3.5 mm screw and 2.7 mm locking screws. The olecranon osteotomy was then fixed using the pretapped hole with an 80 mm 7.0 cancellous screw with washer. Excellent compression of the osteotomy site was noted, with complete reduction. Gentle testing of range of motion of the elbow showed satisfactory stability and range of motion from 20 to full flexion, and full pronation and supination without creptitus. Tourniquet was deflated and the incision was thoroughly irrigated, final hemostasis was obtained using electrocautery, and closure was performed. Fascial closure was performed using O Vicryl, followed by subcutaneous closure with 2-0 Vicryl suture, followed by running subcuticular closure of strata fix and and Exofin tape. A soft dressing was placed and then a posterior long arm splint was placed. Vascular status was satisfactory of the hand. Patient tolerated the procedure well and taken to recovery room in stable condition.
[2024-01-29] MEDS ORDERED: diphenhydrAMINE 25 MG CAP PO PRN (15:10)
[2024-01-29] MEDS ORDERED: HYDROmorphone 0.5 MG/0.5 ML SYRINGE IVP PRN ×2 (15:10)
[2024-01-29] MEDS ORDERED: ONDANSETRON 4 MG/2 ML VIAL IVP PRN (15:10)
[2024-01-29 15:16] LABS: Glucose,Whole Blood 160 mg/dL (70-110)
[2024-01-29] MEDS: fentaNYL (PF) 50 MCG/ML 2 ML AMP IV PRN (16:03)
[2024-01-29] MEDS: DEXAMETHASONE SOD PHOSPHATE 4 MG/ML 1 ML VIAL IV ONE (17:02)
[2024-01-29 17:05] LABS: Glucose,Whole Blood 205 mg/dL (70-110)
[2024-01-29 20:27] LABS: Glucose,Whole Blood 162 mg/dL (70-110)
[2024-01-29] MEDS: traMADol 50 MG TAB PO PRN (20:37)
[2024-01-29] MEDS: HYDROmorphone 0.5 MG/0.5 ML SYRINGE IVP PRN (22:32)
--- NOTE | 2024-01-30 03:03 | P.CONS ---
History of Present Illness - Reason for Consult Consult date: 01/29/24 - History of Present Illness Patient is a 73-year-old female with a PMH of type II DM, hypertension, gout who was admitted for a scheduled right distal humeral fracture ORIF. Patient was seen postoperatively. She reported excellent control of her pain, currently rated at a 1 out of 10 in the right arm. She is not experiencing chest discomfort, sore throat, fever, chills, cough, nausea, vomiting, abdominal pain. Reports compliance with all her medications at home. Review of systems: Pertinent positives and negatives as discussed in HPI, a complete review of systems was performed and all other systems are negative. Physical examination: Vital signs reviewed General: non toxic, no distress, appears at stated age, normal weight Derm: no unusual rashes/lesions, warm Head: atraumatic, normocephalic, symmetric Eyes: EOMI, no lid lag, anicteric sclera, pupils equal round reactive to light ENT: Nose and ears atraumatic Neck: No cervical lymphadenopathy, trachea midline, supple Mouth: no lip lesion, mucus membranes moist Cardiovascular: S1S2 reg, no murmur, positive dorsalis pedis pulse bilateral, no edema Lungs: CTA bilateral, no rhonchi, no rales, no accessory muscle use Abdominal: soft, nontender to palpation, no guarding Ext: muscle strength 5 out of 5 in all extremities grossly except distal RUE postsurgical, no gross muscle atrophy, no contractures, RUE sling in place Neuro: CN II-XI grossly intact, no gross focal neuro deficits Psych: Alert, oriented, appropriate affect Assessment: Chronic conditions: Type II DM, hypertension, hyperlipidemia, gout Status post right humeral ORIF Plan: Insulin sliding scale and blood glucose monitoring Resume remaining home medications Defer postoperative management including DVT prophylaxis and pain control to the primary surgery service Past Medical History Past Medical History: Atrial Fibrillation, Asthma, Diabetes Mellitus, Hyperlipidemia, Hypertension, Osteoarthritis (OA), Sleep Apnea/CPAP/BIPAP Additional Past Medical History / Comment(s): States cannot tolerate blood thinners for the A-Fib so had Watchman Device inserted. Varicose veins, hx gout, UTI's, BORDERLINE SLEEP APNEA - NO MACHINE USED. "Many falls recently." History of Any Multi-Drug Resistant Organisms: None Reported Past Surgical History: Appendectomy, Bariatric Surgery, Cholecystectomy, Hysterectomy, Orthopedic Surgery Additional Past Surgical History / Comment(s): "4 surgeries to correct left side of neck", lap band, bilateral cataracts removed, Watchman Device inserted.ORIF rt elbow 01/29/24 Past Anesthesia/Blood Transfusion Reactions: Motion Sickness, Postoperative Nausea & Vomiting (PONV) Past Psychological History: Anxiety, Depression Smoking Status: Never smoker Past Alcohol Use History: Rare Past Drug Use History: None Reported - Past Family History Mother Family Medical History: Cancer Additional Family Medical History / Comment(s): Breast cancer. Father Family Medical History: Congestive Heart Failure (CHF) Sister(s) Family Medical History: Cancer Additional Family Medical History / Comment(s): BREAST CANCER. Medications and Allergies Home Medications Medication Instructions Recorded Confirmed Type Dapagliflozin Propanediol [Farxiga] 10 mg PO DAILY 03/15/19 01/29/24 History Insulin Glulisine (For Pump) 3.2 units SQ-PUMP CONTINUOUS 03/15/19 01/29/24 History [Apidra (For Pump)] sitaGLIPtin [Januvia] 100 mg PO DAILY 03/15/19 01/29/24 History Atorvastatin [Lipitor] 40 mg PO HS #30 tab 03/20/19 01/29/24 Rx Metoprolol Tartrate [Lopressor] 25 mg PO BID #60 tablet 03/20/19 01/29/24 Rx Cholecalciferol [Vitamin D3 (25 25 mcg PO DAILY 07/24/21 01/29/24 History Mcg = 1000 Iu)] allopurinoL [Zyloprim] 100 mg PO HS 07/24/21 01/29/24 History Lisinopril-Hctz 20-12.5 mg 1 tab PO BID 09/23/21 01/29/24 History [Zestoretic 20-12.5] Spironolactone 50 mg PO QAM 09/23/21 01/29/24 History Venlafaxine HCl [Effexor] 225 mg PO QAM 09/23/21 01/29/24 History ALPRAZolam [Xanax] 0.25 mg PO TID PRN 12/23/21 01/29/24 History Tirzepatide [Mounjaro] 5 mg SQ TH 01/24/24 01/29/24 History Acetaminophen Tab [Tylenol Tab] 500 - 1,000 mg PO Q4-6H PRN 01/26/24 01/29/24 History Sennosides-Docusate Sodium 1 tab PO BID #60 tablet 01/29/24 Rx [Senokot-S] traMADol HCl [Ultram] 50 mg PO Q6HR PRN #28 tab 01/29/24 Rx Allergies Allergy/AdvReac Type Severity Reaction Status Date / Time acetaminophen [From Vicodin] AdvReac Migraine Verified 01/29/24 10:46 codeine AdvReac Migraine Verified 01/29/24 10:46 hydrocodone AdvReac migraine Verified 01/29/24 10:46 nifedipine [From Procardia] AdvReac Migraine Verified 01/29/24 10:46 Physical Exam Vitals: Vital Signs Temp Pulse Resp BP BP Pulse Ox 01/29/24 18:08 59 L 96/51 98 01/29/24 17:36 59 L 95/58 99 01/29/24 17:21 58 L 108/61 98 01/29/24 17:06 59 L 93/50 97 01/29/24 16:51 60 97/56 94 L 01/29/24 16:37 64 16 108/56 95 01/29/24 16:15 61 14 116/63 98 01/29/24 16:00 63 14 115/63 98 01/29/24 15:45 62 14 113/57 98 01/29/24 15:34 60 14 112/56 97 01/29/24 15:19 62 20 130/65 100 01/29/24 15:04 97.3 F L 64 14 128/61 98 01/29/24 12:36 56 L 16 169/68 100 01/29/24 12:29 54 L 16 182/78 100 01/29/24 12:20 53 L 16 198/82 100 01/29/24 12:14 53 L 16 198/82 100 01/29/24 10:40 97.1 F L 54 L 18 185/79 100 Intake and Output 01/29/24 01/29/24 01/30/24 14:59 22:59 06:59 Intake Total 1251 120 Output Total 100 Balance 1151 120 Intake: IV 1251 100 Intake, IV Titration 20 Amount Lactated Ringers 1,000 ml 20 @ 20 mls/hr IV .Q24H [facility] Rx#:[id number] Output: Estimated Blood Loss 100 Other: Weight 56.8 kg 56.8 kg Results Labs: Abnormal Lab Results - Last 24 Hours (Table) 01/29/24 01/29/24 01/29/24 Range/Units 11:17 15:12 17:04 POC Glucose (mg/dL) 207 H 160 H 205 H (70-110) mg/dL 01/29/24 Range/Units 20:25 POC Glucose (mg/dL) 162 H (70-110) mg/dL
[2024-01-30 07:07] LABS: Glucose,Whole Blood 125 mg/dL (70-110)
[2024-01-30] MEDS: INSULIN ASPART (NovoLOG) 100 UNIT/ML VIAL SQ SCH (08:27)
[2024-01-30] MEDS: SPIRONOLACTONE 25 MG TAB PO SCH (08:32)
[2024-01-30] MEDS: VENLAFAXINE HCL 75 MG TAB PO SCH (08:33)
[2024-01-30] MEDS: LISINOPRIL-HCTZ 20-12.5 MG 1 EACH TAB PO SCH (08:33)
[2024-01-30] MEDS: METOPROLOL TARTRATE 25 MG TAB PO SCH (08:33)
--- NOTE | 2024-01-30 11:21 | P.PN ---
Subjective Progress Note Date: 01/30/24 Patient is a 73-year-old female with a PMH of type II DM, hypertension, gout who was admitted for a scheduled right distal humeral fracture ORIF. 01/29 Patient was seen and examined. Right arm pain well controlled. Plans for SNF. POC glucose 125-207 over the past 24H. General: non toxic, no distress, appears at stated age Derm: warm, dry Head: atraumatic, normocephalic, symmetric Eyes: EOMI, no lid lag, anicteric sclera Mouth: no lip lesion, mucus membranes moist Cardiovascular: S1S2 reg, no murmur Lungs: CTA bilateral, no rhonchi, no rales , no accessory muscle use Abdominal: soft, nontender to palpation, no guarding, no appreciable organomegaly Ext: no gross muscle atrophy, no edema, no contractures Neuro: no focal neuro deficits Psych: Alert, oriented, appropriate affect Hypertension: Aldactone 50 mg PO QD, Lisinopril-HCTZ 20-12.5 mg PO QD. Diabetes mellitus: ISS. Accuchecks ACHS. Hypoglycemic precautions. Dyslipidemia: Lipitor 40 mg PO QHS. Gout: Allopurinol 100 mg PO QHS. CODE STATUS: FULL CODE DVT Prophylaxis: Heparin SQ GI Prophylaxis: Designated medical POA if patient is not able to make medical decisions for themselves: I have reviewed the following baby registry sales consultant notes: I have reviewed the results of the following tests: POC glucose I have ordered the following tests: CBC and BMP I have discussed the care of this patient with the following independent historian: I have independently interpreted the following test below: I have discussed the management of this patient with the following physician: Objective - Vital Signs Vital signs: Vital Signs Temp 97.9 F 01/30/24 07:08 Pulse 54 L 01/30/24 07:08 Resp 16 01/30/24 07:08 BP 146/67 01/30/24 07:08 Pulse Ox 97 01/30/24 07:08 FiO2 Intake & Output 01/29/24 01/30/24 01/30/24 18:59 06:59 18:59 Intake Total 1371 Output Total 100 Balance 1271 Weight 56.8 kg Intake: IV 1351 Intake, IV Titration 20 Amount Lactated Ringers 1,000 ml 20 @ 20 mls/hr IV .Q24H [facility] Rx#:[id number] Output: Estimated Blood Loss 100 Other: # Voids 1 1 - Labs Labs: Abnormal Lab Results - Last 24 Hours (Table) 01/29/24 01/29/24 01/29/24 Range/Units 11:17 15:12 17:04 POC Glucose (mg/dL) 207 H 160 H 205 H (70-110) mg/dL 01/29/24 01/30/24 Range/Units 20:25 07:06 POC Glucose (mg/dL) 162 H 125 H (70-110) mg/dL
--- NOTE | 2024-01-30 11:55 | P.PN ---
Subjective Progress Note Date: 01/30/24 This is a 73-year-old female who is status post ORIF of a right distal humerus fracture. This is postoperative day #1 and patient is seen and evaluated at bedside today. Patient states that the right arm is sore, but she is tolerating her splint well. Patient states that she would like to be discharged to inpatient rehab. Patient denies any new complaints today. Objective - Vital Signs Vital signs: Vital Signs Temp 97.9 F 01/30/24 07:08 Pulse 54 L 01/30/24 07:08 Resp 16 01/30/24 07:08 BP 146/67 01/30/24 07:08 Pulse Ox 97 01/30/24 07:08 FiO2 Intake & Output 01/29/24 01/30/24 01/30/24 18:59 06:59 18:59 Intake Total 1371 Output Total 100 Balance 1271 Weight 56.8 kg Intake: IV 1351 Intake, IV Titration 20 Amount Lactated Ringers 1,000 ml 20 @ 20 mls/hr IV .Q24H [facility] Rx#:[id number] Output: Estimated Blood Loss 100 Other: # Voids 1 1 - Exam Vital signs are stable. Patient is in no acute distress and is alert and oriented 3. Calf is soft and nontender to palpation. Dressing is clean, dry, and intact. Patient has full foot and ankle motion without pain or difficulty. Sensation intact. Neurovascular status and circulatory status are intact. - Labs Labs: Abnormal Lab Results - Last 24 Hours (Table) 01/29/24 01/29/24 01/29/24 Range/Units 15:12 17:04 20:25 POC Glucose (mg/dL) 160 H 205 H 162 H (70-110) mg/dL 01/30/24 Range/Units 07:06 POC Glucose (mg/dL) 125 H (70-110) mg/dL Assessment and Plan (1) Fracture of distal end of right humerus Current Visit: Yes Status: Acute Code(s): S42.401A - UNSP FRACTURE OF LOWER END OF RIGHT HUMERUS, INIT SNOMED Code(s): 547388181 (2) S/P ORIF (open reduction internal fixation) fracture Current Visit: Yes Status: Acute Code(s): Z98.890 - OTHER SPECIFIED POSTPROCEDURAL STATES; Z87.81 - PERSONAL HISTORY OF (HEALED) TRAUMATIC FRACTURE SNOMED Code(s): 066780913 Plan: 1. Continue routine postoperative care and pain control. 2. Maintain splint to the right upper extremity. 3. Appreciate input from internal medicine. 4. [facility]tic[facility]ate [facility] in the next 48 to 72 hours.
[2024-01-30 11:56] LABS: Glucose,Whole Blood 142 mg/dL (70-110)
[2024-01-30 17:09] LABS: Glucose,Whole Blood 162 mg/dL (70-110)
[2024-01-30 20:34] LABS: Glucose,Whole Blood 241 mg/dL (70-110)
[2024-01-30] MEDS: allopurinoL 100 MG TAB PO SCH (20:53)
[2024-01-30] MEDS: HEPARIN SODIUM,PORCINE 5,000 UNIT/ML 1 ML VIAL SQ SCH (20:54)
[2024-01-30] MEDS: ATORVASTATIN 40 MG TAB PO SCH (20:54)
[2024-01-31 07:01] LABS: Glucose,Whole Blood 118 mg/dL (70-110)
[2024-01-31 07:39] LABS: HCT 41.6 % (34.0-46.0); HGB 14.2 gm/dL (11.4-16.0); MCH 32.2 pg (25.0-35.0); MCHC 34.3 g/dL (31.0-37.0); MCV 93.9 fL (80.0-100.0); Mean Platelet Volume 8.4; Platelet Count 189 k/uL (150-450); RBC 4.43 m/uL (3.80-5.40); WBC 10.9 k/uL (3.8-10.6)
[2024-01-31 08:14] LABS: African American GFR (CKD) >90 (>60 ml/min/1.73 sqM); Anion Gap 5 mmol/L; Blood Urea Nitrogen 15 mg/dL (7-17); Calcium 8.8 mg/dL (8.4-10.2); Carbon Dioxide 26 mmol/L (22-30); Chloride 88 mmol/L (98-107); Glucose 111 mg/dL (74-99); Non-African American GFR(CKD) >90 (>60 ml/min/1.73 sqM); Potassium 4.3 mmol/L (3.5-5.1)
[2024-01-31 08:19] LABS: Sodium 119 mmol/L (137-145)
--- NOTE | 2024-01-31 10:27 | P.PN ---
Subjective Progress Note Date: 01/31/24 Principal diagnosis: Post op ORIF right elbow. Supracondylar fracture right elbow. Hyponatremia. This is a 73-year-old female who is postop day #2 status post ORIF distal humerus/supracondylar fracture of the right elbow. She has no new complaints or concerns today. Sodium is 119 today. Vital signs are stable. Objective - Vital Signs Vital signs: Vital Signs Temp 97.7 F 01/31/24 07:02 Pulse 60 01/31/24 07:02 Resp 16 01/31/24 07:02 BP 165/66 01/31/24 07:02 Pulse Ox 95 01/31/24 07:02 FiO2 Intake & Output 01/30/24 01/31/24 01/31/24 18:59 06:59 18:59 Weight 56.8 kg Other: # Voids 1 3 - Exam This is a pleasant 73-year-old female in no acute distress. She is alert and oriented 3. Exam of the upper extremities reveals her splint and sling in place. She has full finger motion and full thumb abduction and extension without difficulty or pain. Neurovascular status upper extremity is intact. - Labs CBC & Chem 7: 01/31/24 07:09 01/31/24 07:09 Labs: Abnormal Lab Results - Last 24 Hours (Table) 01/30/24 01/30/24 01/30/24 Range/Units 11:55 17:08 20:32 WBC (3.8-10.6) k/uL Sodium (137-145) mmol/L Chloride (98-107) mmol/L Creatinine (0.52-1.04) mg/dL Glucose (74-99) mg/dL POC Glucose (mg/dL) 142 H 162 H 241 H (70-110) mg/dL 01/31/24 01/31/24 01/31/24 Range/Units 07:00 07:09 07:09 WBC 10.9 H (3.8-10.6) k/uL Sodium 119 L* (137-145) mmol/L Chloride 88 L (98-107) mmol/L Creatinine 0.49 L (0.52-1.04) mg/dL Glucose 111 H (74-99) mg/dL POC Glucose (mg/dL) 118 H (70-110) mg/dL Assessment and Plan (1) Fracture of distal end of right humerus Current Visit: Yes Status: Acute Code(s): S42.401A - UNSP FRACTURE OF LOWER END OF RIGHT HUMERUS, INIT SNOMED Code(s): 272898130 (2) Post-op pain Current Visit: Yes Status: Acute Code(s): G89.18 - OTHER ACUTE POSTPROCEDURAL PAIN SNOMED Code(s): 619296752 (3) S/P ORIF (open reduction internal fixation) fracture Current Visit: Yes Status: Acute Code(s): Z98.890 - OTHER SPECIFIED POSTPROCEDURAL STATES; Z87.81 - PERSONAL HISTORY OF (HEALED) TRAUMATIC FRACTURE SNOMED Code(s): 621104674 (4) Hyponatremia Current Visit: No Status: Acute Code(s): E87.1 - HYPO-OSMOLALITY AND HYPONATREMIA SNOMED Code(s): 68909911
--- NOTE | 2024-01-31 11:03 | P.NPCON ---
History of Present Illness - Reason for Consult hyponatremia - History of Present Illness Reason for consultation: Hyponatremia History of present illness: Patient is a 73-year-old female seen in renal consultation for hyponatremia. Patient sodium level this morning was noted to be low at 119. Patient is currently not receiving any fluids. Patient came to the hospital due to right humerus fracture and underwent open reduction internal fixation on January 29, 2024. No labs were done until today. Patient states oral intake has been poor the last few days but is now improving. She denies vomiting or diarrhea. Denies personal history of malignancy. She was taking hydrochlorothiazide as well as spironolactone outpatient and both are currently held at this time. She denies any history of kidney disease. No gross hematuria or dysuria. Admits to discomfort in the right arm. Vital signs are stable. General: No acute distress. HEENT: Head exam is unremarkable. No acute distress. LUNGS: No audible rhonchi or wheezes. HEART: Rate and Rhythm are regular. ABDOMEN: Nontender. EXTREMITITES: No edema. Past Medical History Past Medical History: Atrial Fibrillation, Asthma, Diabetes Mellitus, Hyperlipidemia, Hypertension, Osteoarthritis (OA), Sleep Apnea/CPAP/BIPAP Additional Past Medical History / Comment(s): States cannot tolerate blood thinners for the A-Fib so had Watchman Device inserted. Varicose veins, hx gout, UTI's, BORDERLINE SLEEP APNEA - NO MACHINE USED. "Many falls recently." History of Any Multi-Drug Resistant Organisms: None Reported Past Surgical History: Appendectomy, Bariatric Surgery, Cholecystectomy, Hysterectomy, Orthopedic Surgery Additional Past Surgical History / Comment(s): "4 surgeries to correct left side of neck", lap band, bilateral cataracts removed, Watchman Device inserted.ORIF rt elbow 01/29/24 Past Anesthesia/Blood Transfusion Reactions: Motion Sickness, Postoperative Nausea & Vomiting (PONV) Past Psychological History: Anxiety, Depression Smoking Status: Never smoker Past Alcohol Use History: Rare Past Drug Use History: None Reported - Past Family History Mother Family Medical History: Cancer Additional Family Medical History / Comment(s): Breast cancer. Father Family Medical History: Congestive Heart Failure (CHF) Sister(s) Family Medical History: Cancer Additional Family Medical History / Comment(s): BREAST CANCER. Medications and Allergies Home Medications Medication Instructions Recorded Confirmed Type Dapagliflozin Propanediol [Farxiga] 10 mg PO DAILY 03/15/19 01/29/24 History Insulin Glulisine (For Pump) 3.2 units SQ-PUMP CONTINUOUS 03/15/19 01/29/24 History [Apidra (For Pump)] sitaGLIPtin [Januvia] 100 mg PO DAILY 03/15/19 01/29/24 History Atorvastatin [Lipitor] 40 mg PO HS #30 tab 03/20/19 01/29/24 Rx Metoprolol Tartrate [Lopressor] 25 mg PO BID #60 tablet 03/20/19 01/29/24 Rx Cholecalciferol [Vitamin D3 (25 25 mcg PO DAILY 07/24/21 01/29/24 History Mcg = 1000 Iu)] allopurinoL [Zyloprim] 100 mg PO HS 07/24/21 01/29/24 History Lisinopril-Hctz 20-12.5 mg 1 tab PO BID 09/23/21 01/29/24 History [Zestoretic 20-12.5] Spironolactone 50 mg PO QAM 09/23/21 01/29/24 History Venlafaxine HCl [Effexor] 225 mg PO QAM 09/23/21 01/29/24 History ALPRAZolam [Xanax] 0.25 mg PO TID PRN 12/23/21 01/29/24 History Tirzepatide [Mounjaro] 5 mg SQ TH 01/24/24 01/29/24 History Acetaminophen Tab [Tylenol Tab] 500 - 1,000 mg PO Q4-6H PRN 01/26/24 01/29/24 History Sennosides-Docusate Sodium 1 tab PO BID #60 tablet 01/29/24 Rx [Senokot-S] traMADol HCl [Ultram] 50 mg PO Q6HR PRN #28 tab 01/29/24 Rx Allergies Allergy/AdvReac Type Severity Reaction Status Date / Time acetaminophen [From Vicodin] AdvReac Migraine Verified 01/29/24 10:46 codeine AdvReac Migraine Verified 01/29/24 10:46 hydrocodone AdvReac migraine Verified 01/29/24 10:46 nifedipine [From Procardia] AdvReac Migraine Verified 01/29/24 10:46 Physical Exam Vitals: Vital Signs Temp Pulse Resp BP BP Pulse Ox 01/31/24 07:02 97.7 F 60 16 165/66 95 01/31/24 02:00 98.3 F 59 L 16 148/78 97 01/30/24 20:00 98.1 F 59 L 16 149/67 96 01/30/24 13:28 97.9 F 50 L 18 184/71 98 Intake and Output 01/30/24 01/31/24 01/31/24 22:59 06:59 14:59 Other: # Voids 1 3 Weight 56.8 kg Results - Lab Results Most recent lab results Calcium 8.8 mg/dL (8.4-10.2) 01/31/24 07:09 01/31/24 07:09 01/31/24 07:09 Assessment and Plan Plan: Assessment: 1. Hyponatremia from poor intake and further worsen with the use of thiazide diuretic. Sodium level 119 this morning. 2. Status post fall with right humerus fracture status post surgery January 29, 2024. 3. Diabetes mellitus. 4. Benign hypertension. Plan: Start normal saline at 75 cc an hour. Encouraged oral intake. Add 1500 cc fluid restriction. Check serum and urine osmolality and urine sodium level. Check TSH. Continue to hold hydrochlorothiazide. Add hydralazine. Repeat sodium level this afternoon. Thank you for the consultation. I will continue to follow the patient with you during her hospital stay.
--- NOTE | 2024-01-31 11:38 | P.PN ---
Subjective Progress Note Date: 01/31/24 Patient is a 73-year-old female with a PMH of type II DM, hypertension, gout who was admitted for a scheduled right distal humeral fracture ORIF. 01/29 Patient was seen and examined. Right arm pain well controlled. Plans for SNF. POC glucose 125-207 over the past 24H. 01/30 Patient was seen and examined. Complaints of fatigue. CBC WBC 10.9. BMP Na 119, Cl 88, Cr 0.49, glu 111. Plans for SNF. Case management on board. General: non toxic, no distress, appears at stated age Derm: warm, dry Head: atraumatic, normocephalic, symmetric Eyes: EOMI, no lid lag, anicteric sclera Mouth: no lip lesion, mucus membranes moist Cardiovascular: S1S2 reg, no murmur Lungs: CTA bilateral, no rhonchi, no rales , no accessory muscle use Ext: no gross muscle atrophy, no edema, no contractures Neuro: no focal neuro deficits Psych: Alert, oriented, appropriate affect Hyponatremia: Euvolemic. Serum and Urine Osm ordered. Mitchell ordered. DC Aldactone, Lisinopril and HCTZ. Consult Nephrology. Hypertension: Aldactone, Lisinopril and HCTZ on hold. Diabetes mellitus: ISS. Accuchecks ACHS. Hypoglycemic precautions. Dyslipidemia: Lipitor 40 mg PO QHS. Gout: Allopurinol 100 mg PO QHS. CODE STATUS: FULL CODE DVT Prophylaxis: Heparin SQ GI Prophylaxis: Designated medical POA if patient is not able to make medical decisions for themselves: I have reviewed the following risk management consultant notes: Orthopedic Sx I have reviewed the results of the following tests: CBC, BMP I have ordered the following tests: I have discussed the care of this patient with the following independent historian: I have independently interpreted the following test below: I have discussed the management of this patient with the following physician: Objective - Vital Signs Vital signs: Vital Signs Temp 97.7 F 01/31/24 07:02 Pulse 60 01/31/24 07:02 Resp 16 01/31/24 07:02 BP 165/66 01/31/24 07:02 Pulse Ox 95 01/31/24 07:02 FiO2 Intake & Output 01/30/24 01/31/24 01/31/24 18:59 06:59 18:59 Weight 56.8 kg Other: # Voids 1 3 - Labs CBC & Chem 7: 01/31/24 07:09 01/31/24 07:09 Labs: Abnormal Lab Results - Last 24 Hours (Table) 01/30/24 01/30/24 01/30/24 Range/Units 11:55 17:08 20:32 WBC (3.8-10.6) k/uL POC Glucose (mg/dL) 142 H 162 H 241 H (70-110) mg/dL 01/31/24 01/31/24 Range/Units 07:00 07:09 WBC 10.9 H (3.8-10.6) k/uL POC Glucose (mg/dL) 118 H (70-110) mg/dL
[2024-01-31 12:01] LABS: Glucose,Whole Blood 274 mg/dL (70-110)
[2024-01-31] MEDS: SODIUM CHLORIDE 0.9% 1,000 ML IV SCH (12:19)
[2024-01-31] MEDS: hydrALAZINE HCL 50 MG TAB PO SCH (14:23)
[2024-01-31 17:14] LABS: Glucose,Whole Blood 186 mg/dL (70-110)
[2024-01-31] MEDS: SODIUM CHLORIDE TAB 1 GM TAB PO STA (18:06)
[2024-01-31 20:11] LABS: Glucose,Whole Blood 370 mg/dL (70-110)
[2024-01-31] MEDS ORDERED: NALOXONE 0.4 MG/ML 1 ML VIAL IV PRN (21:52)
[2024-01-31 22:22] LABS: Glucose,Whole Blood 339 mg/dL (70-110)
[2024-01-31] MEDS: SODIUM CHLORIDE 3%(HYPERTONIC) 500 ML IV ONE (22:28)
--- NOTE | 2024-02-01 00:58 | P.CNPUL ---
History of Present Illness Consult date: 02/01/24 Requesting physician: Barrie Pal Reason for consult: other (Hyponatremia requiring 3% sodium infusion and ICU monitoring) Chief complaint: Previous fall sustaining right humeral fracture s/p day #3 ORIF History of present illness: Patient is a 73-year-old white female with past medical history significant for atrial fibrillation with Watchman device diabetes mellitus, hyperlipidemia, hype rtension, asthma, JOSSUE without CPAP, and frequent falls. The first week of December, patient had a fall and sustained a right humeral fracture. She was walking into a restaurant, and tripped over a rug. Patient was brought into the hospital 01/29/2024, and underwent open reduction with internal fixation of the right distal humeral fracture. During this admission she was noted to be hyponatremic. She has previous history of hospitalization for severe hyponatremia back in 2020. She is currently sitting up in bed, alert and oriented x 3. She takes thiazide diuretics and spironolactone outpatient. Also, on venlafaxine. Denies any history of malignancy. Denies history of kidney disease or urinary complaints. Denies head trauma. Denies headache. Denies seizures. Denies alcohol use. Denies any nausea vomiting or diarrhea. Oral intake and fluids adequate. Appears euvolemic. Patient states that she had URI- like symptoms approximately 3 weeks ago. Admits occasional nonproductive cough, otherwise no pulmonary complaints. No fever. No chest pain. No hemoptysis. On room air. Her sodium level last night was down to 116. Patient was transferred to the intensive care unit late last night for a 3% sodium infusion per nephrology recommendation. Most recent labs include an unremarkable CBC. BMP includes a sodium of 116, potassium 4.3, chloride 88, serum bicarb 26, BUN 15, creatinine 0.49, glucose 111. Serum osmolality low at 261. Urine sodium 74. Awaiting urine osmolality. 3% sodium infusion has been started at 25 mL/h per nephrology recommendation. Sodium goal is 120-122. Vital signs are stable. Review of Systems REVIEW OF SYSTEMS: CONSTITUTIONAL: Denies any recent significant weight loss or weight gain. EYES: Denies change in vision. EARS, NOSE, MOUTH, THROAT: Denies headaches, denies sore throat. CARDIOVASCULAR: Denies chest pain, palpitations or syncopal episodes. RESPIRATORY: See HPI GASTROINTESTINAL: Denies change in appetite, abdominal pain, nausea and vomiting, or diarrhea GENITOURINARY: Denies hematuria, denies infections. MUSKULOSKELETAL: Admits postsurgical right arm pain INTEGUMENTARY: Denies rash, denies eczema. NEUROLOGICAL: Denies recent memory loss, no recent seizure activity. PSYCHIATRIC: Denies anxiety, denies depression. HEMATOLOGIC/LYMPHATIC: Denies anemia, denies enlarged lymph node Past Medical History Past Medical History: Atrial Fibrillation, Asthma, Diabetes Mellitus, Hyperlipidemia, Hypertension, Osteoarthritis (OA), Sleep Apnea/CPAP/BIPAP Additional Past Medical History / Comment(s): States cannot tolerate blood thinners for the A-Fib so had Watchman Device inserted. Varicose veins, hx gout, UTI's, BORDERLINE SLEEP APNEA - NO MACHINE USED. "Many falls recently." History of Any Multi-Drug Resistant Organisms: None Reported Past Surgical History: Appendectomy, Bariatric Surgery, Cholecystectomy, Hysterectomy, Orthopedic Surgery Additional Past Surgical History / Comment(s): "4 surgeries to correct left side of neck", lap band, bilateral cataracts removed, Watchman Device inserted.ORIF rt elbow 01/29/24 Past Anesthesia/Blood Transfusion Reactions: Motion Sickness, Postoperative Nausea & Vomiting (PONV) Past Psychological History: Anxiety, Depression Smoking Status: Never smoker Past Alcohol Use History: Rare Past Drug Use History: None Reported - Past Family History Mother Family Medical History: Cancer Additional Family Medical History / Comment(s): Breast cancer. Father Family Medical History: Congestive Heart Failure (CHF) Sister(s) Family Medical History: Cancer Additional Family Medical History / Comment(s): BREAST CANCER. Medications and Allergies Home Medications Medication Instructions Recorded Confirmed Type RX: Dapagliflozin Propanediol 10 mg PO DAILY 03/15/19 01/29/24 History [Farxiga] RX: Insulin Glulisine (For Pump) 3.2 units SQ-PUMP CONTINUOUS 03/15/19 01/29/24 History [Apidra (For Pump)] RX: sitaGLIPtin [Januvia] 100 mg PO DAILY 03/15/19 01/29/24 History RX: Atorvastatin [Lipitor] 40 mg PO HS #30 tab 03/20/19 01/29/24 Rx RX: Metoprolol Tartrate [Lopressor] 25 mg PO BID #60 tablet 03/20/19 01/29/24 Rx RX: Cholecalciferol [Vitamin D3 25 mcg PO DAILY 07/24/21 01/29/24 History (25 Mcg = 1000 Iu)] RX: allopurinoL [Zyloprim] 100 mg PO HS 07/24/21 01/29/24 History Lisinopril-Hctz 20-12.5 mg 1 tab PO BID 09/23/21 01/29/24 History [Zestoretic 20-12.5] RX: Spironolactone 50 mg PO QAM 09/23/21 01/29/24 History Venlafaxine HCl [Effexor] 225 mg PO QAM 09/23/21 01/29/24 History ALPRAZolam [Xanax] 0.25 mg PO TID PRN 12/23/21 01/29/24 History Tirzepatide [Mounjaro] 5 mg SQ TH 01/24/24 01/29/24 History Acetaminophen Tab [Tylenol Tab] 500 - 1,000 mg PO Q4-6H PRN 01/26/24 01/29/24 History Sennosides-Docusate Sodium 1 tab PO BID #60 tablet 01/29/24 Rx [Senokot-S] traMADol HCl [Ultram] 50 mg PO Q6HR PRN #28 tab 01/29/24 Rx Allergies Allergy/AdvReac Type Severity Reaction Status Date / Time acetaminophen [From Vicodin] AdvReac Migraine Verified 01/29/24 10:46 codeine AdvReac Migraine Verified 01/29/24 10:46 hydrocodone AdvReac migraine Verified 01/29/24 10:46 nifedipine [From Procardia] AdvReac Migraine Verified 01/29/24 10:46 Physical Exam Vitals: Vital Signs Temp Pulse Pulse Resp BP BP BP 02/01/24 00:00 57 L 11 L 132/60 01/31/24 23:50 56 L 10 L 132/60 01/31/24 23:40 56 L 20 132/60 01/31/24 23:30 56 L 10 L 129/57 01/31/24 23:20 57 L 11 L 129/57 01/31/24 23:10 58 L 23 129/57 01/31/24 23:00 58 L 12 123/56 01/31/24 22:50 57 L 17 123/56 01/31/24 22:40 60 12 123/56 01/31/24 22:30 60 8 L 128/64 01/31/24 22:21 63 10 L 01/31/24 19:05 98.4 F 60 16 132/68 01/31/24 13:36 97.9 F 55 L 16 160/72 01/31/24 07:02 97.7 F 60 16 165/66 01/31/24 02:00 98.3 F 59 L 16 148/78 Pulse Ox 02/01/24 00:00 97 01/31/24 23:50 96 01/31/24 23:40 97 01/31/24 23:30 94 L 01/31/24 23:20 97 01/31/24 23:10 98 01/31/24 23:00 94 L 01/31/24 22:50 96 01/31/24 22:40 97 01/31/24 22:30 97 01/31/24 22:21 01/31/24 19:05 98 01/31/24 13:36 98 01/31/24 07:02 95 01/31/24 02:00 97 Intake and Output 01/31/24 01/31/24 02/01/24 14:59 22:59 06:59 Intake Total 540 358 50 Output Total 512 52 Balance 28 306 50 Intake: Intake, IV Titration 50 Amount Sodium Chloride 3%( 50 Hypertonic) 500 ml @ 25 mls/hr IV .Q20H ONE Rx#: [id number] Oral 540 358 Output: Urine 500 Post Void Residual 12 52 Other: Voiding Method Bedside Commode # Voids 1 1 GENERAL EXAM: Alert and oriented x 3, 73-year-old white female, comfortable in no apparent distress. HEAD: Normocephalic and atraumatic EYES: Normal reaction of pupils, equal size. NOSE: Clear with pink turbinates. THROAT: No erythema or exudates. NECK: No masses, no JVD. CHEST: No chest wall deformity. LUNGS: Equal air entry with no crackles, wheeze, rhonchi or dullness. On room air. No conversational dyspnea or accessory muscle use.. CVS: S1 and S2 normal with no audible murmur, regular rhythm. No extra heart sounds ABDOMEN: No hepatosplenomegaly, active bowel sounds, no guarding or rigidity. SPINE: No scoliosis or deformity SKIN: No rashes CENTRAL NERVOUS SYSTEM: No focal deficits, tone is normal in all 4 extremities. No seizure-like activity. EXTREMITIES: There is no peripheral edema, clubbing, or cyanosis. Peripheral pulses are intact. Right arm wrapped in soft cast Results - Laboratory Findings CBC and BMP: 01/31/24 07:09 01/31/24 20:18 Abnormal lab findings: Abnormal Labs 01/29/24 01/29/24 01/29/24 11:17 15:12 17:04 WBC Sodium Chloride Creatinine Glucose POC Glucose (mg/dL) 207 H 160 H 205 H Osmolality 01/29/24 01/30/24 01/30/24 20:25 07:06 11:55 WBC Sodium Chloride Creatinine Glucose POC Glucose (mg/dL) 162 H 125 H 142 H Osmolality 01/30/24 01/30/24 01/31/24 17:08 20:32 07:00 WBC Sodium Chloride Creatinine Glucose POC Glucose (mg/dL) 162 H 241 H 118 H Osmolality 01/31/24 01/31/24 01/31/24 07:09 07:09 07:09 WBC 10.9 H Sodium 119 L* Chloride 88 L Creatinine 0.49 L Glucose 111 H POC Glucose (mg/dL) Osmolality 261 L 01/31/24 01/31/24 01/31/24 12:00 16:28 17:13 WBC Sodium 117 L* Chloride Creatinine Glucose POC Glucose (mg/dL) 274 H 186 H Osmolality 01/31/24 01/31/24 01/31/24 20:10 20:18 22:21 WBC Sodium 116 L* Chloride Creatinine Glucose POC Glucose (mg/dL) 370 H 339 H Osmolality Assessment and Plan Assessment: Severe hyponatremia, most recent sodium level 116, possibly iatrogenic related to combination of thiazide diuretics and SNRI, rule out SIADH and appropriate urine labs are pending. Admitted to the intensive care unit for 3% sodium infusion. Current sodium goal 120 to 122 mmol/L History of fall sustaining right humeral fracture, status postoperative day #3 following a open reduction with internal fixation of the right distal femoral fracture. History of paroxysmal atrial fibrillation with previous Watchman device in [facility]. Not currently anticoagulated secondary to frequent falls and bleeding Diabetes mellitus type 2, insulin-dependent, with home insulin pump History of hyperlipidemia History of hypertension History of asthma, stable History of obstructive sleep apnea without home CPAP Plan: Patient's medications and labs were reviewed. Most recent sodium 116. Sodium rechecks every 2 hours. Currently on 3% sodium infusion at 25 mL/h per nephrology recommendation. 24-hour sodium goal is 120 to 122 mmol/L Appropriate urine studies are pending, rule out SIADH. Thiazide diuretics on hold. Fluid restriction per nephrology recommendation. TSH level pending. No neurological impairment or seizures. Obtain chest x-ray DVT prophylaxis with heparin subcu Blood sugar management per admitting. We will continue to follow the patient while in the intensive care unit. I have personally seen and examined the patient, performed the documentation and the assessment and plan as written. Number of minutes spent on the visit:20 Time with Patient: Greater than 30
[2024-02-01 04:54] LABS: Basophils % (A) 0 %; Eosinophils # (A) 0.1 k/uL (0-0.7); Eosinophils % (A) 1 %; HCT 35.9 % (34.0-46.0); HGB 12.3 gm/dL (11.4-16.0); Lymphocytes # (A) 1.1 k/uL (1.0-4.8); Lymphocytes % (A) 12 %; MCH 32.4 pg (25.0-35.0); MCHC 34.3 g/dL (31.0-37.0); MCV 94.4 fL (80.0-100.0); Mean Platelet Volume 8.5; Monocytes # (A) 0.8 k/uL (0-1.0); Monocytes % (A) 8 %; Neutrophils % (A) 77 %; Platelet Count 175 k/uL (150-450); RBC 3.81 m/uL (3.80-5.40); RDW 13.9 % (11.5-15.5); WBC 9.1 k/uL (3.8-10.6)
[2024-02-01 05:14] LABS: African American GFR (CKD) >90 (>60 ml/min/1.73 sqM); Anion Gap 5 mmol/L; Blood Urea Nitrogen 17 mg/dL (7-17); Calcium 8.6 mg/dL (8.4-10.2); Carbon Dioxide 25 mmol/L (22-30); Chloride 91 mmol/L (98-107); Glucose 145 mg/dL (74-99); Magnesium 1.7 mg/dL (1.6-2.3); Non-African American GFR(CKD) >90 (>60 ml/min/1.73 sqM); Potassium 3.9 mmol/L (3.5-5.1); Sodium 121 mmol/L (137-145)
[2024-02-01] MEDS: hydrALAZINE HCL 20 MG/ML 1 ML VIAL IVP PRN (06:44)
[2024-02-01 06:45] LABS: Glucose,Whole Blood 141 mg/dL (70-110)
[2024-02-01] MEDS: SENNOSIDES-DOCUSATE SODIUM 1 EACH TAB PO PRN (08:47)
--- NOTE | 2024-02-01 08:47 | XR ---
EXAMINATION TYPE: XR chest 1V portable DATE OF EXAM: 02/01/2024 Comparison: 07/24/2021 Clinical History: 73-year-old female URI symptoms, persistent cough Findings: Heart normal size. Aorta and pulmonary vasculature within normal limits. Mild patchy density left. No other consolidation or pleural effusion. Impression: Some mild patchy density at the left upper lobe. Subtle infiltrate/pneumonia not excluded.
[2024-02-01 10:30] LABS: African American GFR (CKD) >90 (>60 ml/min/1.73 sqM); Anion Gap 6 mmol/L; Blood Urea Nitrogen 17 mg/dL (7-17); Calcium 8.6 mg/dL (8.4-10.2); Carbon Dioxide 23 mmol/L (22-30); Chloride 91 mmol/L (98-107); Glucose 145 mg/dL (74-99); Non-African American GFR(CKD) >90 (>60 ml/min/1.73 sqM); Potassium 3.9 mmol/L (3.5-5.1); Sodium 120 mmol/L (137-145)
[2024-02-01] MEDS: AZITHROMYCIN 500 MG TAB PO SCH (10:32)
--- NOTE | 2024-02-01 10:35 | P.PN ---
Subjective Progress Note Date: 02/01/24 Principal diagnosis: Post op ORIF right elbow. Supracondylar fracture right elbow. Hyponatremia. This is a 73-year-old female who is postop day #3 status post ORIF distal humerus/supracondylar fracture of the right elbow. She has no new complaints or concerns today. Sodium dropped to 116 yesterday. She was transferred to ICU for 3% sodium infusion. Repeat sodium today is 121. Further labs are pending. The patient has no new complaints or concerns today regarding her right arm. Objective - Vital Signs Vital signs: Vital Signs Temp 97.8 F 02/01/24 08:00 Pulse 65 02/01/24 09:00 Resp 16 02/01/24 09:00 BP 119/84 02/01/24 09:00 Pulse Ox 97 02/01/24 09:00 FiO2 Intake & Output 01/31/24 02/01/24 02/01/24 18:59 06:59 18:59 Intake Total 898 175 730 Output Total 512 252 0 Balance 386 -77 730 Weight 61.8 kg Intake: IV 10 Invasive Line 2 10 Intake, IV Titration 175 0 Amount Sodium Chloride 3%( 175 0 Hypertonic) 500 ml @ 25 mls/hr IV .Q20H ONE Rx#: [id number] Oral 898 720 Output: Urine 500 200 0 Post Void Residual 12 52 Other: Voiding Method Bedside Commode Bedside Commode # Voids 1 1 0 # Bowel Movements 0 - Exam This is a pleasant 73-year-old female in no acute distress. She is evaluated at bedside in the ICU. She is alert and oriented 3. Exam of the upper extremities reveals her splint and sling in place. She has full finger motion and full thumb abduction and extension without difficulty or pain. Neurovascular status upper extremity is intact. - Labs CBC & Chem 7: 02/01/24 04:25 02/01/24 04:25 Labs: Abnormal Lab Results - Last 24 Hours (Table) 01/31/24 01/31/24 01/31/24 Range/Units 07:09 12:00 16:28 Sodium 117 L* (137-145) mmol/L Chloride (98-107) mmol/L Creatinine (0.52-1.04) mg/dL Glucose (74-99) mg/dL POC Glucose (mg/dL) 274 H (70-110) mg/dL Osmolality 261 L (275-295) mOsm/kg 01/31/24 01/31/24 01/31/24 Range/Units 17:13 20:10 20:18 Sodium 116 L* (137-145) mmol/L Chloride (98-107) mmol/L Creatinine (0.52-1.04) mg/dL Glucose (74-99) mg/dL POC Glucose (mg/dL) 186 H 370 H (70-110) mg/dL Osmolality (275-295) mOsm/kg 01/31/24 02/01/24 02/01/24 Range/Units 22:21 00:34 02:37 Sodium 118 L* 120 L (137-145) mmol/L Chloride (98-107) mmol/L Creatinine (0.52-1.04) mg/dL Glucose (74-99) mg/dL POC Glucose (mg/dL) 339 H (70-110) mg/dL Osmolality (275-295) mOsm/kg 02/01/24 02/01/24 Range/Units 04:25 06:43 Sodium 121 L (137-145) mmol/L Chloride 91 L (98-107) mmol/L Creatinine 0.45 L (0.52-1.04) mg/dL Glucose 145 H (74-99) mg/dL POC Glucose (mg/dL) 141 H (70-110) mg/dL Osmolality (275-295) mOsm/kg Assessment and Plan (1) Fracture of distal end of right humerus Current Visit: Yes Status: Acute Code(s): S42.401A - UNSP FRACTURE OF LOWER END OF RIGHT HUMERUS, INIT SNOMED Code(s): 373340612 (2) Post-op pain Current Visit: Yes Status: Acute Code(s): G89.18 - OTHER ACUTE POSTPROCEDURAL PAIN SNOMED Code(s): 089770273 (3) S/P ORIF (open reduction internal fixation) fracture Current Visit: Yes Status: Acute Code(s): Z98.890 - OTHER SPECIFIED POSTPROCEDURAL STATES; Z87.81 - PERSONAL HISTORY OF (HEALED) TRAUMATIC FRACTURE SNOMED Code(s): 216520197 (4) Hyponatremia Current Visit: No Status: Acute Code(s): E87.1 - HYPO-OSMOLALITY AND HYPON ATREMIA SNOMED Code(s): 02593953 Plan: The clinical findings are discussed with the patient. Continue current care. She is stable from orthopedic standpoint for discharge whenever she is cleared medically.
[2024-02-01] MEDS: ACETAMINOPHEN TAB 325 MG TAB PO PRN (10:36)
[2024-02-01 11:15] LABS: African American GFR (CKD) >90 (>60 ml/min/1.73 sqM); Anion Gap 7 mmol/L; Blood Urea Nitrogen 21 mg/dL (7-17); Calcium 8.3 mg/dL (8.4-10.2); Carbon Dioxide 21 mmol/L (22-30); Chloride 90 mmol/L (98-107); Glucose 384 mg/dL (74-99); Non-African American GFR(CKD) >90 (>60 ml/min/1.73 sqM); Potassium 4.4 mmol/L (3.5-5.1)
--- NOTE | 2024-02-01 11:18 | P.PN ---
Subjective Patient is seen in follow-up for hyponatremia. Sodium level 121 this morning. Received 3% overnight. Awake and alert. Oral intake fair. Vital signs are stable. General: No acute distress. HEENT: Head exam is unremarkable. LUNGS: No audible rhonchi or wheezes. HEART: Rate and Rhythm are regular. ABDOMEN: Nontender. EXTREMITITES: No edema. Objective - Vital Signs Vital signs: Vital Signs Temp 97.8 F 02/01/24 08:00 Pulse 65 02/01/24 09:00 Resp 16 02/01/24 09:00 BP 119/84 02/01/24 09:00 Pulse Ox 97 02/01/24 09:00 FiO2 Intake & Output 01/31/24 02/01/24 02/01/24 18:59 06:59 18:59 Intake Total 898 175 730 Output Total 512 252 0 Balance 386 -77 730 Weight 61.8 kg Intake: IV 10 Invasive Line 2 10 Intake, IV Titration 175 0 Amount Sodium Chloride 3%( 175 0 Hypertonic) 500 ml @ 25 mls/hr IV .Q20H ONE Rx#: [id number] Oral 898 720 Output: Urine 500 200 0 Post Void Residual 12 52 Other: Voiding Method Bedside Commode Bedside Commode # Voids 1 1 0 # Bowel Movements 0 - Labs CBC & Chem 7: 02/01/24 04:25 02/01/24 04:25 Labs: Abnormal Lab Results - Last 24 Hours (Table) 01/31/24 01/31/24 01/31/24 Range/Units 07:09 12:00 16:28 Sodium 117 L* (137-145) mmol/L Chloride (98-107) mmol/L Creatinine (0.52-1.04) mg/dL Glucose (74-99) mg/dL POC Glucose (mg/dL) 274 H (70-110) mg/dL Osmolality 261 L (275-295) mOsm/kg 01/31/24 01/31/24 01/31/24 Range/Units 17:13 20:10 20:18 Sodium 116 L* (137-145) mmol/L Chloride (98-107) mmol/L Creatinine (0.52-1.04) mg/dL Glucose (74-99) mg/dL POC Glucose (mg/dL) 186 H 370 H (70-110) mg/dL Osmolality (275-295) mOsm/kg 01/31/24 02/01/24 02/01/24 Range/Units 22:21 00:34 02:37 Sodium 118 L* 120 L (137-145) mmol/L Chloride (98-107) mmol/L Creatinine (0.52-1.04) mg/dL Glucose (74-99) mg/dL POC Glucose (mg/dL) 339 H (70-110) mg/dL Osmolality (275-295) mOsm/kg 02/01/24 02/01/24 02/01/24 Range/Units 04:25 04:25 06:43 Sodium 121 L 120 L (137-145) mmol/L Chloride 91 L 91 L (98-107) mmol/L Creatinine 0.45 L 0.46 L (0.52-1.04) mg/dL Glucose 145 H 145 H (74-99) mg/dL POC Glucose (mg/dL) 141 H (70-110) mg/dL Osmolality (275-295) mOsm/kg Assessment and Plan Plan: Assessment: 1. Hyponatremia from poor intake and further worsened with the use of thiazide diuretic. Sodium level 121 this morning. TSH normal. Urine sodium 40 and urine osmolality 508. 2. Status post fall with right humerus fracture status post surgery January 29, 2024. 3. Diabetes mellitus. 4. Benign hypertension. Controlled. Plan: Repeat sodium level now. Encouraged oral intake. Maintain 1500 cc fluid restriction. Continue to hold hydrochlorothiazide.
[2024-02-01 11:32] LABS: Sodium 118 mmol/L (137-145)
[2024-02-01 11:45] LABS: Glucose,Whole Blood 350 mg/dL (70-110)
[2024-02-01] MEDS: INSULIN PUMP BASAL RATES 1 EACH MISC MISCELLANE SCH (12:06)
[2024-02-01] MEDS: INSULIN PUMP MEAL BOLUS 1 UNIT MISC MISCELLANE SCH (12:08)
[2024-02-01] MEDS: SODIUM CHLORIDE 3%(HYPERTONIC) 500 ML IV ONE (12:10)
[2024-02-01] MEDS: INSPUCOR MISCELLANE PRN (16:21)
[2024-02-01 16:22] LABS: Glucose,Whole Blood 355 mg/dL (70-110)
[2024-02-01] MEDS: NYSTATIN 100,000 UNIT/GM POWD 15 GM TOPICAL SCH (16:57)
[2024-02-01 17:43] LABS: Glucose,Whole Blood 367 mg/dL (70-110)
--- NOTE | 2024-02-01 20:02 | P.PN ---
Subjective Progress Note Date: 02/01/24 Patient is a 73-year-old female with diabetes mellitus type 2 insulin pump with oral medications enters appetite, hypertension, and gout who was admitted for scheduled right distal humeral fracture ORIF. Patient had no immediate postoperative complications. She continued to be hospitalized that she was making arrangements for rehabilitation. On the morning of 01/30 patient had postoperative blood work completed which showed a sodium of 119. At that point in time she was diagnosed with euvolemic hyponatremia her Aldactone and hydrochlorothiazide was held. Serum and urine osmole were ordered. Nephrology was consulted and recommended adding 1500 cc fluid restriction and starting normal saline at 75 cc an hour. Repeat blood work showed sodium down to 116. Patient was transferred to the ICU and critical care was consulted. Patient was ultimately started on 3% sodium infusion at 25 mL/h. With a goal sodium of 1 20-1 22. Patient seen and examined at bedside. She is wanting to have her Effexor restarted. I explained the risks of this and she is okay with continuing to hold the medication. Pain in her arm is well-controlled. She does not want heparin but is willing to do once daily Lovenox. She does feel comfortable with her insulin pump in place and no sliding scale. Vital signs reviewed General: Nontoxic, no distress, appears at stated age Cardiovascular: S1S2 reg, no murmur Lungs: CTA bilateral, no rhonchi, no rales, no accessory muscle use Abdominal: Soft, nontender to palpation, no guarding Ext: No gross muscle atrophy, no edema b/l lower extremities, no contractures, right arm in sling Neuro: CN II-XI grossly intact, no focal neuro deficits Psych: Alert, oriented, appropriate affect Assessment/Plan: 73-year-old female status post ORIF right distal humerus Hyponatremia due to poor solute intake and use of thiazide diuretic - aldactone and HCTZ on hold - s/p hypertonic saline - Continue with serial sodium level - Await further nephrology - Outpatient sodium 125 on 01/17/24. - Hold effexor Diabetes mellitus type 2 -has insulin pump in place, stop SSI -Follow blood sugars -Hemoglobin A1c 10.8 Hypertension -Patient off hydrochlorothiazide and Aldactone due to hyponatremia -Metoprolol 25 mg twice daily -Lisinopril also on hold -Follow blood pressures Imaging: None Data Review: Labs reviewed from today include CBC and basic metabolic profile which are remarkable for sodium of 121 and glucose of 145 DVT prophylaxis: Lovenox Anticipated discharge date: Pending Clinical Course Anticipated discharge place: Pending Clinical Course This dictation was prepared using [employer] voice recognition software. Though every attempt is made to correct errors during dictation some may still exist. Objective - Vital Signs Vital signs: Vital Signs Temp 98.4 F 01/31/24 19:05 Pulse 63 02/01/24 07:10 Resp 12 02/01/24 07:10 BP 146/66 02/01/24 07:10 Pulse Ox 95 02/01/24 07:10 FiO2 Intake & Output 01/31/24 02/01/24 02/01/24 18:59 06:59 18:59 Intake Total 898 175 0 Output Total 512 252 Balance 386 -77 0 Weight 61.8 kg Intake: Intake, IV Titration 175 0 Amount Sodium Chloride 3%( 175 0 Hypertonic) 500 ml @ 25 mls/hr IV .Q20H ONE Rx#: [id number] Oral 898 Output: Urine 500 200 Post Void Residual 12 52 Other: Voiding Method Bedside Commode # Voids 1 1 - Labs CBC & Chem 7: 02/01/24 04:25 02/01/24 18:07 Labs: Abnormal Lab Results - Last 24 Hours (Table) 01/31/24 01/31/24 01/31/24 Range/Units 07:09 07:09 12:00 Sodium 119 L* (137-145) mmol/L Chloride 88 L (98-107) mmol/L Creatinine 0.49 L (0.52-1.04) mg/dL Glucose 111 H (74-99) mg/dL POC Glucose (mg/dL) 274 H (70-110) mg/dL Osmolality 261 L (275-295) mOsm/kg 01/31/24 01/31/24 01/31/24 Range/Units 16:28 17:13 20:10 Sodium 117 L* (137-145) mmol/L Chloride (98-107) mmol/L Creatinine (0.52-1.04) mg/dL Glucose (74-99) mg/dL POC Glucose (mg/dL) 186 H 370 H (70-110) mg/dL Osmolality (275-295) mOsm/kg 01/31/24 01/31/24 02/01/24 Range/Units 20:18 22:21 00:34 Sodium 116 L* 118 L* (137-145) mmol/L Chloride (98-107) mmol/L Creatinine (0.52-1.04) mg/dL Glucose (74-99) mg/dL POC Glucose (mg/dL) 339 H (70-110) mg/dL Osmolality (275-295) mOsm/kg 02/01/24 02/01/24 02/01/24 Range/Units 02:37 04:25 06:43 Sodium 120 L 121 L (137-145) mmol/L Chloride 91 L (98-107) mmol/L Creatinine 0.45 L (0.52-1.04) mg/dL Glucose 145 H (74-99) mg/dL POC Glucose (mg/dL) 141 H (70-110) mg/dL Osmolality (275-295) mOsm/kg
[2024-02-01 20:07] LABS: Glucose,Whole Blood 270 mg/dL (70-110)
[2024-02-01] MEDS: INSULIN ASPART (NovoLOG) 100 UNIT/ML VIAL SQ PRN (21:16)
[2024-02-02 05:24] LABS: African American GFR (CKD) >90 (>60 ml/min/1.73 sqM); Anion Gap 7 mmol/L; Blood Urea Nitrogen 19 mg/dL (7-17); Calcium 8.8 mg/dL (8.4-10.2); Carbon Dioxide 23 mmol/L (22-30); Chloride 96 mmol/L (98-107); Glucose 149 mg/dL (74-99); Non-African American GFR(CKD) >90 (>60 ml/min/1.73 sqM); Potassium 3.9 mmol/L (3.5-5.1); Sodium 126 mmol/L (137-145)
[2024-02-02 06:10] LABS: Basophils % (A) 0 %; Eosinophils # (A) 0.1 k/uL (0-0.7); Eosinophils % (A) 1 %; HCT 36.8 % (34.0-46.0); HGB 12.3 gm/dL (11.4-16.0); Lymphocytes # (A) 1.5 k/uL (1.0-4.8); Lymphocytes % (A) 17 %; MCH 31.9 pg (25.0-35.0); MCHC 33.4 g/dL (31.0-37.0); MCV 95.4 fL (80.0-100.0); Mean Platelet Volume 8.7; Monocytes # (A) 0.5 k/uL (0-1.0); Monocytes % (A) 6 %; Neutrophils # (A) 6.3 k/uL (1.3-7.7); Neutrophils % (A) 74 %; Platelet Count 213 k/uL (150-450); RBC 3.86 m/uL (3.80-5.40); RDW 14.1 % (11.5-15.5); WBC 8.6 k/uL (3.8-10.6)
[2024-02-02 09:08] LABS: Glucose,Whole Blood 172 mg/dL (70-110)
[2024-02-02] MEDS: ENOXAPARIN 40 MG/0.4 ML SYRINGE SQ SCH (09:09)
--- NOTE | 2024-02-02 10:55 | P.PN ---
Subjective Patient is seen in follow-up for hyponatremia. Sodium level 126 this morning. Received 3% overnight. Awake and alert. Oral intake fair. Vital signs are stable. General: No acute distress. HEENT: Head exam is unremarkable. LUNGS: No audible rhonchi or wheezes. HEART: Rate and Rhythm are regular. ABDOMEN: Nontender. EXTREMITITES: No edema. Objective - Vital Signs Vital signs: Vital Signs Temp 98.3 F 02/02/24 04:00 Pulse 68 02/02/24 07:00 Resp 17 02/02/24 07:00 BP 180/72 02/02/24 07:00 Pulse Ox 94 L 02/02/24 07:00 FiO2 Intake & Output 02/01/24 02/02/24 02/02/24 18:59 06:59 18:59 Intake Total 1691 345 110 Output Total 1101 300 300 Balance 590 45 -190 Weight 62.1 kg Intake: IV 255 105 110 Invasive Line 2 30 30 10 Sodium Chloride 3%( 175 75 0 Hypertonic) 500 ml @ 25 mls/hr IV .Q20H ONE Rx#: [id number] cefTRIAXone 1 gm In 50 100 Sodium Chloride 0.9% 50 ml @ 100 mls/hr IVPB Q24HR [facility] Rx#:[id number] Intake, IV Titration 0 Amount Sodium Chloride 3%( 0 Hypertonic) 500 ml @ 25 mls/hr IV .Q20H ONE Rx#: [id number] Oral 1436 240 Output: Urine 1100 300 300 Stool 1 Other: Voiding Method Bedside Commode Bedside Commode Bedside Commode # Voids 0 0 # Bowel Movements 0 0 - Labs CBC & Chem 7: 02/02/24 04:41 02/02/24 04:41 Labs: Abnormal Lab Results - Last 24 Hours (Table) 02/01/24 02/01/24 02/01/24 Range/Units 10:30 10:30 11:43 Sodium 118 L* (137-145) mmol/L Chloride 90 L (98-107) mmol/L Carbon Dioxide 21 L (22-30) mmol/L BUN 21 H (7-17) mg/dL Creatinine (0.52-1.04) mg/dL Glucose 384 H (74-99) mg/dL POC Glucose (mg/dL) 350 H (70-110) mg/dL Calcium 8.3 L (8.4-10.2) mg/dL Procalcitonin 0.19 H (0.02-0.09) ng/mL 02/01/24 02/01/24 02/01/24 Range/Units 14:05 16:10 16:19 Sodium 120 L 122 L (137-145) mmol/L Chloride (98-107) mmol/L Carbon Dioxide (22-30) mmol/L BUN (7-17) mg/dL Creatinine (0.52-1.04) mg/dL Glucose (74-99) mg/dL POC Glucose (mg/dL) 355 H (70-110) mg/dL Calcium (8.4-10.2) mg/dL Procalcitonin (0.02-0.09) ng/mL 02/01/24 02/01/24 02/01/24 Range/Units 17:42 18:07 19:57 Sodium 122 L 125 L (137-145) mmol/L Chloride (98-107) mmol/L Carbon Dioxide (22-30) mmol/L BUN (7-17) mg/dL Creatinine (0.52-1.04) mg/dL Glucose (74-99) mg/dL POC Glucose (mg/dL) 367 H (70-110) mg/dL Calcium (8.4-10.2) mg/dL Procalcitonin (0.02-0.09) ng/mL 02/01/24 02/02/24 02/02/24 Range/Units 20:06 04:41 09:07 Sodium 126 L (137-145) mmol/L Chloride 96 L (98-107) mmol/L Carbon Dioxide (22-30) mmol/L BUN 19 H (7-17) mg/dL Creatinine 0.45 L (0.52-1.04) mg/dL Glucose 149 H (74-99) mg/dL POC Glucose (mg/dL) 270 H 172 H (70-110) mg/dL Calcium (8.4-10.2) mg/dL Procalcitonin (0.02-0.09) ng/mL Assessment and Plan Plan: Assessment: 1. Hyponatremia from poor intake and further worsened with the use of thiazide diuretic. Sodium level 126 this morning. TSH normal. Urine sodium 40 and urine osmolality 508. 2. Status post fall with right humerus fracture status post surgery January 29, 2024. 3. Diabetes mellitus. 4. Benign hypertension. Plan: Currently off IV fluids. Repeat sodium level at noon. Will give Samsca if not trending up. Encouraged oral intake. Maintain 1500 cc fluid restriction. Continue to hold hydrochlorothiazide. Increase dose of hydralazine.
[2024-02-02 11:20] LABS: Glucose,Whole Blood 320 mg/dL (70-110)
--- NOTE | 2024-02-02 12:16 | XR ---
EXAMINATION TYPE: XR chest 1V portable DATE OF EXAM: 02/02/2024 Comparison: 02/01/2024 Clinical History: 73-year-old female cough, dyspnea Findings: Heart normal size. Aorta and pulmonary vasculature within normal limits. Aeration at the left upper l obe shows improvement. Impression: No progressive infiltrate. Aeration left upper lobe appears to have improved. No definite acute proce ss.
[2024-02-02 12:56] VITALS: BMI 26.7
--- NOTE | 2024-02-02 13:26 | P.PN ---
Subjective Progress Note Date: 02/02/24 Principal diagnosis: Severe hyponatremia Patient is a 73-year-old white female with past medical history significant for atrial fibrillation with Watchman device diabetes mellitus, hyperlipidemia, hypertension, asthma, JOSSUE without CPAP, and frequent falls. The first week of December, patient had a fall and sustained a right humeral fracture. She was walking into a restaurant, and tripped over a rug. Patient was brought into the hospital 01/29/2024, and underwent open reduction with internal fixation of the right distal humeral fracture. During this admission she was noted to be hyponatremic. She has previous history of hospitalization for severe hyponatremia back in 2020. She is currently sitting up in bed, alert and oriented x 3. She takes thiazide diuretics and spironolactone outpatient. Also, on venlafaxine. Denies any history of malignancy. Denies history of kidney disease or urinary complaints. Denies head trauma. Denies headache. Denies seizures. Denies alcohol use. Denies any nausea vomiting or diarrhea. Oral intake and fluids adequate. Appears euvolemic. Patient states that she had URI- like symptoms approximately 3 weeks ago. Admits occasional nonproductive cough, otherwise no pulmonary complaints. No fever. No chest pain. No hemoptysis. On room air. Her sodium level last night was down to 116. Patient was transferred to the intensive care unit late last night for a 3% sodium infusion per nephrology recommendation. Most recent labs include an unremarkable CBC. BMP includes a sodium of 116, potassium 4.3, chloride 88, serum bicarb 26, BUN 15, creatinine 0.49, glucose 111. Serum osmolality low at 261. Urine sodium 74. Awaiting urine osmolality. 3% sodium infusion has been started at 25 mL/h per nephrology recommendation. Sodium goal is 120-122. Vital signs are stable. Patient was evaluated today on 02/02/2024, patient was transferred to the ICU yesterday because of low sodium today sodium is 126. Patient received 3% saline overnight, she is in no distress, basically asymptomatic. Her hyponatremia was felt to be related to poor intake and to taking thiazide diuretics, basically hypovolemic hyponatremia. Her hydrochlorothiazide is on hold, at any rate her sodium is up to 126 today, and I believe the patient could be transferred out of the ICU to a regular medical floor the patient denies any shortness of breath, no cough no wheezing, does not seem to be in any distress for Objective - Vital Signs Vital signs: Vital Signs Temp 98.3 F 02/02/24 04:00 Pulse 68 02/02/24 07:00 Resp 17 02/02/24 07:00 BP 180/72 02/02/24 07:00 Pulse Ox 94 L 02/02/24 07:00 FiO2 Intake & Output 02/01/24 02/02/24 02/02/24 18:59 06:59 18:59 Intake Total 1691 345 110 Output Total 1101 300 300 Balance 590 45 -190 Weight 62.1 kg 62.1 kg Intake: IV 255 105 110 Invasive Line 2 30 30 10 Sodium Chloride 3%( 175 75 0 Hypertonic) 500 ml @ 25 mls/hr IV .Q20H [facility] Rx#: [id number] cefTRIAXone 1 gm In 50 100 Sodium Chloride 0.9% 50 ml @ 100 mls/hr IVPB Q24HR [facility] Rx#:[id number] Intake, IV Titration 0 Amount Sodium Chloride 3%( 0 Hypertonic) 500 ml @ 25 mls/hr IV .Q20H [facility] Rx#: [id number] Oral 1436 240 Output: Urine 1100 300 300 Stool 1 Other: Voiding Method Bedside Commode Bedside Commode Bedside Commode # Voids 0 0 # Bowel Movements 0 0 - Exam GENERAL EXAM: Reveals 73-year-old female in no distress HEAD: Normocephalic and atraumatic EYES: Normal reaction of pupils, equal size. NOSE: Clear with pink turbinates. THROAT: No erythema or exudates. NECK: No masses, no JVD. CHEST: No chest wall deformity. LUNGS: Clear bilaterally no rhonchi no wheezes CVS: S1 and S2 normal with no audible murmur, regular rhythm. No extra heart sounds ABDOMEN: No hepatosplenomegaly, active bowel sounds, no guarding or rigidity. SKIN: No rashes CENTRAL NERVOUS SYSTEM: Alert oriented x 3 no gross focal deficit EXTREMITIES: No clubbing edema or cyanosis patient does have right arm wrapped in soft cast - Labs CBC & Chem 7: 02/02/24 04:41 02/02/24 12:10 Labs: Abnormal Lab Results - Last 24 Hours (Table) 02/01/24 02/01/24 02/01/24 Range/Units 10:30 14:05 16:10 Sodium 120 L 122 L (137-145) mmol/L Chloride (98-107) mmol/L BUN (7-17) mg/dL Creatinine (0.52-1.04) mg/dL Glucose (74-99) mg/dL POC Glucose (mg/dL) (70-110) mg/dL Procalcitonin 0.19 H (0.02-0.09) ng/mL 02/01/24 02/01/24 02/01/24 Range/Units 16:19 17:42 18:07 Sodium 122 L (137-145) mmol/L Chloride (98-107) mmol/L BUN (7-17) mg/dL Creatinine (0.52-1.04) mg/dL Glucose (74-99) mg/dL POC Glucose (mg/dL) 355 H 367 H (70-110) mg/dL Procalcitonin (0.02-0.09) ng/mL 02/01/24 02/01/24 02/02/24 Range/Units 19:57 20:06 04:41 Sodium 125 L 126 L (137-145) mmol/L Chloride 96 L (98-107) mmol/L BUN 19 H (7-17) mg/dL Creatinine 0.45 L (0.52-1.04) mg/dL Glucose 149 H (74-99) mg/dL POC Glucose (mg/dL) 270 H (70-110) mg/dL Procalcitonin (0.02-0.09) ng/mL 02/02/24 02/02/24 02/02/24 Range/Units 09:07 11:18 12:10 Sodium 124 L (137-145) mmol/L Chloride (98-107) mmol/L BUN (7-17) mg/dL Creatinine (0.52-1.04) mg/dL Glucose (74-99) mg/dL POC Glucose (mg/dL) 172 H 320 H (70-110) mg/dL Procalcitonin (0.02-0.09) ng/mL Assessment and Plan Assessment: Impression: Severe hyponatremia, possibly iatrogenic related to combination of thiazide diuretics and SNRI, rule out SIADH History of fall sustaining right humeral fracture, status postoperative day #4 following a open reduction with internal fixation of the right distal femoral fracture. History of paroxysmal atrial fibrillation with previous Watchman device insertion. Not currently anticoagulated secondary to frequent falls and bleeding Diabetes mellitus type 2, insulin-dependent, with home insulin pump History of hyperlipidemia History of hypertension History of asthma, stable History of obstructive sleep apnea without home CPAP Left upper lobe nonspecific abnormality noted on her initial chest x-ray, however it seems to have improved and there seems to be better aeration of the l eft upper lobe on this chest x-ray from today, could consider a CT of the chest if the abnormality does not completely resolve, or if she continues to have persistent hyponatremia Recommendation: Could transfer patient out of the ICU to a regular medical floor Continue treatment as per nephrology on the case, considering [facility] Nephrology is also recommending some sort of fluid restriction and to continue to hold diuretics. Will continue to follow. Would also recommend repeat chest x-ray and possibly a CT of the chest before discharge if the abnormality in the left upper lobe persists Time with Patient: Less than 30
[2024-02-02] MEDS: TOLVAPTAN 15 MG TABLET PO ONE ×2 (15:41→20:59)
[2024-02-02] MEDS: hydrALAZINE HCL 50 MG TAB PO SCH (15:41)
--- NOTE | 2024-02-02 16:08 | P.PN ---
Subjective Progress Note Date: 02/02/24 (delayed charting seen at 0845) Patient is a 73-year-old female with diabetes mellitus type 2 insulin pump with oral medications enters appetite, hypertension, and gout who was admitted for scheduled right distal humeral fracture ORIF. Patient had no immediate postoperative complications. She continued to be hospitalized that she was making arrangements for rehabilitation. On the morning of 01/30 patient had postoperative blood work completed which showed a sodium of 119. At that point in time she was diagnosed with euvolemic hyponatremia her Aldactone and hydrochlorothiazide was held. Serum and urine osmole were ordered. Nephrology was consulted and recommended adding 1500 cc fluid restriction and starting normal saline at 75 cc an hour. Repeat blood work showed sodium down to 116. Patient was transferred to the ICU and critical care was consulted. Patient was ultimately started on 3% sodium infusion at 25 mL/h. With a goal sodium of 120- 122. 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 Her sodium remained stable. Pulmonary was concerned for possible PNA and she was started on antibiotics. Patient seen and examined at bedside. She is doing better today. Denies any significant pain. No lightheadedness, dizziness, chest pain, shortness of breath. She does feel comfortable continuing to use her insulin pump. Vital signs reviewed General: Nontoxic, no distress, appears at stated age Cardiovascular: S1S2 reg, no murmur Lungs: CTA bilateral, no rhonchi, no rales, no accessory muscle use Abdominal: Soft, nontender to palpation, no guarding Ext: No gross muscle atrophy, no edema b/l lower extremities, no contractures, right arm in sling Neuro: CN II-XI grossly intact, no focal neuro deficits Psych: Alert, oriented, appropriate affect Assessment/Plan: 73-year-old female status post ORIF right distal humerus Hyponatremia due to poor solute intake and use of thiazide diuretic - aldactone and HCTZ on hold - s/p hypertonic saline - Continue with serial sodium level -Nephrology note reviewed: Currently off IV fluids, repeat sodium level at noon, Samsca if not trending up, maintain 1500 cc fluid restriction. Continue to hold hydrochlorothiazide. Increase dose of hydralazine. - Samsca 7.5 mg PO X 1 - Outpatient sodium 125 on 01/17/24. - Hold effexor Diabetes mellitus type 2 -has insulin pump in place, stop SSI -Follow blood sugars -Hemoglobin A1c 10.8 Hypertension -Patient off hydrochlorothiazide and Aldactone due to hyponatremia -Metoprolol 25 mg twice daily, hydralazine 75 mg PO TID -Lisinopril also on hold -Follow blood pressures Left upper lobe infiltrate - started on rocephin D #2 by pulm, CXR improved. D/C after dose # 3. Imaging: Chest x-ray: No progressive infiltrates, aeration left upper lobe improved Data Review: Labs reviewed from today include CBC and basic metabolic profile which are remarkable for sodium of 126. DVT prophylaxis: Lovenox Anticipated discharge date: in AM Anticipated discharge place: [facility] This dictation was prepared using [employer] voice recognition software. Though every attempt is made to correct errors during dictation some may still exist. Objective - Vital Signs Vital signs: Vital Signs Temp 98.3 F 02/02/24 04:00 Pulse 68 02/02/24 07:00 Resp 17 02/02/24 07:00 BP 180/72 02/02/24 07:00 Pulse Ox 94 L 02/02/24 07:00 FiO2 Intake & Output 02/01/24 02/02/24 02/02/24 18:59 06:59 18:59 Intake Total 1691 345 110 Output Total 1101 300 300 Balance 590 45 -190 Weight 62.1 kg 62.1 kg Intake: IV 255 105 110 Invasive Line 2 30 30 10 Sodium Chloride 3%( 175 75 0 Hypertonic) 500 ml @ 25 mls/hr IV .Q20H [facility] Rx#: [id number] cefTRIAXone 1 gm In 50 100 Sodium Chloride 0.9% 50 ml @ 100 mls/hr IVPB Q24HR [facility] Rx#:[id number] Intake, IV Titration 0 Amount Sodium Chloride 3%( 0 Hypertonic) 500 ml @ 25 mls/hr IV .Q20H [facility] Rx#: [id number] Oral 1436 240 Output: Urine 1100 300 300 Stool 1 Other: Voiding Method Bedside Commode Bedside Commode Bedside Commode # Voids 0 0 # Bowel Movements 0 0 - Labs CBC & Chem 7: 02/02/24 04:41 02/02/24 12:10 Labs: Abnormal Lab Results - Last 24 Hours (Table) 02/01/24 02/01/24 02/01/24 Range/Units 10:30 16:10 16:19 Sodium 122 L (137-145) mmol/L Chloride (98-107) mmol/L BUN (7-17) mg/dL Creatinine (0.52-1.04) mg/dL Glucose (74-99) mg/dL POC Glucose (mg/dL) 355 H (70-110) mg/dL Procalcitonin 0.19 H (0.02-0.09) ng/mL 02/01/24 02/01/24 02/01/24 Range/Units 17:42 18:07 19:57 Sodium 122 L 125 L (137-145) mmol/L Chloride (98-107) mmol/L BUN (7-17) mg/dL Creatinine (0.52-1.04) mg/dL Glucose (74-99) mg/dL POC Glucose (mg/dL) 367 H (70-110) mg/dL Procalcitonin (0.02-0.09) ng/mL 02/01/24 02/02/24 02/02/24 Range/Units 20:06 04:41 09:07 Sodium 126 L (137-145) mmol/L Chloride 96 L (98-107) mmol/L BUN 19 H (7-17) mg/dL Creatinine 0.45 L (0.52-1.04) mg/dL Glucose 149 H (74-99) mg/dL POC Glucose (mg/dL) 270 H 172 H (70-110) mg/dL Procalcitonin (0.02-0.09) ng/mL 02/02/24 02/02/24 Range/Units 11:18 12:10 Sodium 124 L (137-145) mmol/L Chloride (98-107) mmol/L BUN (7-17) mg/dL Creatinine (0.52-1.04) mg/dL Glucose (74-99) mg/dL POC Glucose (mg/dL) 320 H (70-110) mg/dL Procalcitonin (0.02-0.09) ng/mL
[2024-02-02 16:25] LABS: Glucose,Whole Blood 318 mg/dL (70-110)
[2024-02-02 20:21] LABS: Glucose,Whole Blood 417 mg/dL (70-110)
[2024-02-02 23:27] LABS: Glucose,Whole Blood 294 mg/dL (70-110)
[2024-02-03 06:25] LABS: African American GFR (CKD) >90 (>60 ml/min/1.73 sqM); Anion Gap 6 mmol/L; Blood Urea Nitrogen 25 mg/dL (7-17); Calcium 8.8 mg/dL (8.4-10.2); Carbon Dioxide 23 mmol/L (22-30); Chloride 98 mmol/L (98-107); Glucose 257 mg/dL (74-99); Magnesium 1.8 mg/dL (1.6-2.3); Non-African American GFR(CKD) >90 (>60 ml/min/1.73 sqM); Potassium 4.1 mmol/L (3.5-5.1); Sodium 127 mmol/L (137-145)
[2024-02-03 06:58] LABS: Glucose,Whole Blood 261 mg/dL (70-110)
[2024-02-03] MEDS: INSULIN ASPART (NovoLOG) 100 UNIT/ML VIAL SQ SCH (08:00)
[2024-02-03] MEDS: INSULIN DETEMIR (LEVEMIR) 100 UNIT/ML SYR SQ SCH ×2 (09:03→21:20)
[2024-02-03 11:56] LABS: Glucose,Whole Blood 530 mg/dL (70-110)
[2024-02-03 11:56] LABS: Glucose,Whole Blood 562 mg/dL (70-110)
[2024-02-03] MEDS: INSULIN ASPART (NovoLOG) 100 UNIT/ML VIAL SQ ONE (12:42)
--- NOTE | 2024-02-03 12:49 | P.PN ---
Subjective Progress Note Date: 02/03/24 Principal diagnosis: Severe hyponatremia Patient is a 73-year-old white female with past medical history significant for atrial fibrillation with Watchman device diabetes mellitus, hyperlipidemia, hypertension, asthma, JOSSUE without CPAP, and frequent falls. The first week of December, patient had a fall and sustained a right humeral fracture. She was walking into a restaurant, and tripped over a rug. Patient was brought into the hospital 01/29/2024, and underwent open reduction with internal fixation of the right distal humeral fracture. During this admission she was noted to be hyponatremic. She has previous history of hospitalization for severe hyponatremia back in 2020. She is currently sitting up in bed, alert and oriented x 3. She takes thiazide diuretics and spironolactone outpatient. Also, on venlafaxine. Denies any history of malignancy. Denies history of kidney disease or urinary complaints. Denies head trauma. Denies headache. Denies seizures. Denies alcohol use. Denies any nausea vomiting or diarrhea. Oral intake and fluids adequate. Appears euvolemic. Patient states that she had URI- like symptoms approximately 3 weeks ago. Admits occasional nonproductive cough, otherwise no pulmonary complaints. No fever. No chest pain. No hemoptysis. On room air. Her sodium level last night was down to 116. Patient was transferred to the intensive care unit late last night for a 3% sodium infusion per nephrology recommendation. Most recent labs include an unremarkable CBC. BMP includes a sodium of 116, potassium 4.3, chloride 88, serum bicarb 26, BUN 15, creatinine 0.49, glucose 111. Serum osmolality low at 261. Urine sodium 74. Awaiting urine osmolality. 3% sodium infusion has been started at 25 mL/h per nephrology recommendation. Sodium goal is 120-122. Vital signs are stable. Patient was evaluated today on 02/02/2024, patient was transferred to the ICU yesterday because of low sodium today sodium is 126. Patient received 3% saline overnight, she is in no distress, basically asymptomatic. Her hyponatremia was felt to be related to poor intake and to taking thiazide diuretics, basically hypovolemic hyponatremia. Her hydrochlorothiazide is on hold, at any rate her sodium is up to 126 today, and I believe the patient could be transferred out of the ICU to a regular medical floor the patient denies any shortness of breath, no cough no wheezing, does not seem to be in any distress Patient was evaluated today on 02/03/2024, patient is doing much better today, feels fine, not in any distress, her sodium is up to 127, rest of the labs are unremarkable blood sugar however is high today at 562. This is being addressed by her admitting physician. Considering her elevated blood sugar, Objective - Vital Signs Vital signs: Vital Signs Temp 97.5 F L 02/03/24 06:59 Pulse 60 02/03/24 06:59 Resp 16 02/03/24 06:59 BP 152/73 02/03/24 06:59 Pulse Ox 99 02/03/24 06:59 FiO2 Intake & Output 02/02/24 02/03/24 02/03/24 18:59 06:59 18:59 Intake Total 110 240 480 Output Total 1400 Balance -1290 240 480 Weight 62.1 kg Intake: IV 110 Invasive Line 2 10 Sodium Chloride 3%( 0 Hypertonic) 500 ml @ 25 mls/hr IV .Q20H [facility] Rx#: [id number] cefTRIAXone 1 gm In 100 Sodium Chloride 0.9% 50 ml @ 100 mls/hr IVPB Q24HR [facility] Rx#:[id number] Oral 240 480 Output: Urine 1400 Other: Voiding Method Bedside Commode Toilet # Voids 2 1 - Exam GENERAL EXAM: Reveals 73-year-old female in no distress, patient is on room air O2 sat is 99% HEAD: Normocephalic and atraumatic EYES: Normal reaction of pupils, equal size. NOSE: Clear with pink turbinates. THROAT: No erythema or exudates. NECK: No masses, no JVD. CHEST: No chest wall deformity. LUNGS: Clear bilaterally no rhonchi no wheezes CVS: S1 and S2 normal with no audible murmur, regular rhythm. No extra heart sounds ABDOMEN: No hepatosplenomegaly, active bowel sounds, no guarding or rigidity. SKIN: No rashes CENTRAL NERVOUS SYSTEM: Alert oriented x 3 no gross focal deficit EXTREMITIES: No clubbing edema or cyanosis patient does have right arm wrapped in soft cast - Labs CBC & Chem 7: 02/02/24 04:41 02/03/24 05:13 Labs: Abnormal Lab Results - Last 24 Hours (Table) 02/02/24 02/02/24 02/02/24 Range/Units 16:24 17:57 20:19 Sodium 124 L (137-145) mmol/L BUN (7-17) mg/dL Glucose (74-99) mg/dL POC Glucose (mg/dL) 318 H 417 H (70-110) mg/dL 02/02/24 02/03/24 02/03/24 Range/Units 23:23 05:13 06:57 Sodium 127 L (137-145) mmol/L BUN 25 H (7-17) mg/dL Glucose 257 H (74-99) mg/dL POC Glucose (mg/dL) 294 H 261 H (70-110) mg/dL 02/03/24 02/03/24 Range/Units 11:53 11:54 Sodium (137-145) mmol/L BUN (7-17) mg/dL Glucose (74-99) mg/dL POC Glucose (mg/dL) 530 H 562 H (70-110) mg/dL Assessment and Plan Assessment: Impression: Severe hyponatremia, possibly iatrogenic related to combination of thiazide d iuretics and SNRI, rule out SIADH History of fall sustaining right humeral fracture, status postoperative day #4 following a open reduction with internal fixation of the right distal femoral fracture. History of paroxysmal atrial fibrillation with previous Watchman device insertion. Not currently anticoagulated secondary to frequent falls and bleeding Diabetes mellitus type 2, insulin-dependent, with home insulin pump History of hyperlipidemia History of hypertension History of asthma, stable History of obstructive sleep apnea without home CPAP Left upper lobe nonspecific abnormality noted on her initial chest x-ray, however it seems to have improved and there seems to be better aeration of the left upper lobe on this chest x-ray from today, could consider a CT of the chest if the abnormality does not completely resolve, or if she continues to have persistent hyponatremia Recommendation: Continue present supportive care measures Patient could be considered for follow-up with me on outpatient basis to evaluate the left upper lobe nonspecific finding, or consider a CT of the chest before she is discharged. Will continue to follow. Time with Patient: Less than 30
--- NOTE | 2024-02-03 13:30 | P.PN ---
Subjective Progress Note Date: 02/03/24 Patient is seen in follow-up for hyponatremia. Sodium level 126 this morning. s/p 3%. Awake and alert. Oral intake fair. Vital signs are stable. General: No acute distress. HEENT: Head exam is unremarkable. LUNGS: No audible rhonchi or wheezes. HEART: Rate and Rhythm are regular. ABDOMEN: Nontender. EXTREMITITES: No edema. Objective - Vital Signs Vital signs: Vital Signs Temp 97.5 F L 02/03/24 06:59 Pulse 60 02/03/24 06:59 Resp 16 02/03/24 06:59 BP 152/73 02/03/24 06:59 Pulse Ox 99 02/03/24 06:59 FiO2 Intake & Output 02/02/24 02/03/24 02/03/24 18:59 06:59 18:59 Intake Total 110 240 480 Output Total 1400 Balance -1290 240 480 Weight 62.1 kg Intake: IV 110 Invasive Line 2 10 Sodium Chloride 3%( 0 Hypertonic) 500 ml @ 25 mls/hr IV .Q20H [facility] Rx#: [id number] cefTRIAXone 1 gm In 100 Sodium Chloride 0.9% 50 ml @ 100 mls/hr IVPB Q24HR [facility] Rx#:[id number] Oral 240 480 Output: Urine 1400 Other: Voiding Method Bedside Commode Toilet # Voids 2 1 - Labs CBC & Chem 7: 02/02/24 04:41 02/03/24 05:13 Labs: Abnormal Lab Results - Last 24 Hours (Table) 02/02/24 02/02/24 02/02/24 Range/Units 11:18 12:10 16:24 Sodium 124 L (137-145) mmol/L BUN (7-17) mg/dL Glucose (74-99) mg/dL POC Glucose (mg/dL) 320 H 318 H (70-110) mg/dL 02/02/24 02/02/24 02/02/24 Range/Units 17:57 20:19 23:23 Sodium 124 L (137-145) mmol/L BUN (7-17) mg/dL Glucose (74-99) mg/dL POC Glucose (mg/dL) 417 H 294 H (70-110) mg/dL 02/03/24 02/03/24 Range/Units 05:13 06:57 Sodium 127 L (137-145) mmol/L BUN 25 H (7-17) mg/dL Glucose 257 H (74-99) mg/dL POC Glucose (mg/dL) 261 H (70-110) mg/dL Assessment and Plan Plan: Assessment: 1. Hyponatremia from poor intake and further worsened with the use of thiazide diuretic. Sodium level 127 this morning. TSH normal. Urine sodium 40 and urine osmolality 508. 2. Status post fall with right humerus fracture status post surgery January 29, 2024. 3. Diabetes mellitus. 4. Benign hypertension. Plan: Currently off IV fluids, s/p 3% saline and Tolvaptan 02/01. Encouraged oral intake. Maintain 1500 cc fluid restriction. Continue to hold hydrochlorothiazide. Monitor daily sodium level
[2024-02-03 17:10] LABS: Glucose,Whole Blood 360 mg/dL (70-110)
--- NOTE | 2024-02-03 18:23 | P.PN ---
Subjective Progress Note Date: 02/03/24 (delayed charting seen at 0830) Patient is a 73-year-old female with diabetes mellitus type 2 insulin pump with oral medications enters appetite, hypertension, and gout who was admitted for scheduled right distal humeral fracture ORIF. Patient had no immediate postoperative complications. She continued to be hospitalized that she was making arrangements for rehabilitation. On the morning of 01/30 patient had postoperative blood work completed which showed a sodium of 119. At that point in time she was diagnosed with euvolemic hyponatremia her Aldactone and hydrochlorothiazide was held. Serum and urine osmole were ordered. Nephrology was consulted and recommended adding 1500 cc fluid restriction and starting normal saline at 75 cc an hour. Repeat blood work showed sodium down to 116. Patient was transferred to the ICU and critical care was consulted. Patient was ultimately started on 3% sodium infusion at 25 mL/h. With a goal sodium of 120- 122. This was discontinue line builder 01/31. Her sodium remained stable. Pulmonary was concerned for possible PNA and she was started on antibiotics. Patient's insulin pump became dislodged on the morning of 02/03/2024 and therefore her blood sugars went up to a max of 500. Transition to long-acting and short acting insulin Patient seen and examined at bedside. Doing okay, did not like being moved in the middle of the night. Hungry does not like eggs, pain is controlled. Vital signs reviewed General: Nontoxic, no distress, appears at stated age Cardiovascular: S1S2 reg, no murmur Lungs: CTA bilateral, no rhonchi, no rales, no accessory muscle use Abdominal: Soft, nontender to palpation, no guarding Ext: No gross muscle atrophy, no edema b/l lower extremities, no contractures, right arm in sling Neuro: CN II-XI grossly intact, no focal neuro deficits Psych: Alert, oriented, appropriate affect Assessment/Plan: 73-year-old female status post ORIF right distal humerus Hyponatremia due to poor solute intake and use of thiazide diuretic - aldactone and HCTZ on hold - s/p hypertonic saline - repeat sodium level in AM -Neurology note reviewed: Monitor sodium levels daily. - s/p Samsca 7.5 mg 02/02 - Outpatient sodium 125 on 01/17/24. - Hold effexor Diabetes mellitus type 2 -Patient's insulin pump became dislodged -Levemir 8 units in the a.m. and 40 units at night, sliding scale insulin -Follow blood sugars -Hemoglobin A1c 10.8 Hypertension -Patient off hydrochlorothiazide and Aldactone due to hyponatremia -Metoprolol 25 mg twice daily, hydralazine 75 mg PO TID -Lisinopril also on hold -Follow blood pressures Left upper lobe infiltrate - started on rocephin D #2 by pulm, CXR improved. D/C after dose # 3. -Critical care note reviewed: Continue with supportive measures, follow-up on an outpatient basis for the left upper lobe nonspecific finding Imaging: Chest x-ray: No progressive infiltrates, aeration left upper lobe improved Data Review: From today include basic metabolic profile which is remarkable for sodium of 127. Blood sugars have been high. DVT prophylaxis: Lovenox Anticipated discharge date: in AM Anticipated discharge place: [facility] This dictation was prepared using [employer] voice recognition software. Though every attempt is made to correct errors during dictation some may still exist. Objective - Vital Signs Vital signs: Vital Signs Temp 98.1 F 02/03/24 13:20 Pulse 60 02/03/24 13:20 Resp 18 02/03/24 13:20 BP 118/50 02/03/24 13:20 Pulse Ox 97 02/03/24 13:20 FiO2 Intake & Output 02/02/24 02/03/24 02/03/24 18:59 06:59 18:59 Intake Total 110 240 720 Output Total 1400 Balance -1290 240 720 Weight 62.1 kg Intake: IV 110 Invasive Line 2 10 Sodium Chloride 3%( 0 Hypertonic) 500 ml @ 25 mls/hr IV .Q20H ONE Rx#: [id number] cefTRIAXone 1 gm In 100 Sodium Chloride 0.9% 50 ml @ 100 mls/hr IVPB Q24HR LUCIO Rx#:[id number] Oral 240 720 Output: Urine 1400 Other: Voiding Method Bedside Commode Toilet # Voids 2 1 - Labs CBC & Chem 7: 02/02/24 04:41 02/03/24 05:13 Labs: Abnormal Lab Results - Last 24 Hours (Table) 02/02/24 02/02/24 02/02/24 Range/Units 17:57 20:19 23:23 Sodium 124 L (137-145) mmol/L BUN (7-17) mg/dL Glucose (74-99) mg/dL POC Glucose (mg/dL) 417 H 294 H (70-110) mg/dL 02/03/24 02/03/24 02/03/24 Range/Units 05:13 06:57 11:53 Sodium 127 L (137-145) mmol/L BUN 25 H (7-17) mg/dL Glucose 257 H (74-99) mg/dL POC Glucose (mg/dL) 261 H 530 H (70-110) mg/dL 02/03/24 02/03/24 Range/Units 11:54 17:09 Sodium (137-145) mmol/L BUN (7-17) mg/dL Glucose (74-99) mg/dL POC Glucose (mg/dL) 562 H 360 H (70-110) mg/dL
[2024-02-03 20:58] LABS: Glucose,Whole Blood 323 mg/dL (70-110)
[2024-02-03] MEDS: hydrOXYzine HCL 25 MG TAB PO PRN (22:39)
[2024-02-04 07:03] LABS: Glucose,Whole Blood 232 mg/dL (70-110)
[2024-02-04] MEDS ORDERED: bisacodyL 5 MG TABLET.DR PO PRN (09:37)
[2024-02-04] MEDS: bisacodyL 5 MG TABLET.DR PO STA (10:57)
[2024-02-04 11:22] LABS: Basophils % (A) 0 %; Eosinophils # (A) 0.1 k/uL (0-0.7); Eosinophils % (A) 1 %; HCT 39.1 % (34.0-46.0); HGB 12.3 gm/dL (11.4-16.0); Lymphocytes # (A) 0.9 k/uL (1.0-4.8); Lymphocytes % (A) 12 %; MCH 31.5 pg (25.0-35.0); MCHC 31.4 g/dL (31.0-37.0); Macrocytosis Slight; Mean Platelet Volume 8.6; Monocytes # (A) 0.5 k/uL (0-1.0); Monocytes % (A) 7 %; Neutrophils # (A) 5.6 k/uL (1.3-7.7); Neutrophils % (A) 79 %; Platelet Count 222 k/uL (150-450); RBC 3.89 m/uL (3.80-5.40); RDW 14.1 % (11.5-15.5); WBC 7.1 k/uL (3.8-10.6)
[2024-02-04 11:32] LABS: African American GFR (CKD) >90 (>60 ml/min/1.73 sqM); Anion Gap 5 mmol/L; Blood Urea Nitrogen 22 mg/dL (7-17); Calcium 8.4 mg/dL (8.4-10.2); Carbon Dioxide 26 mmol/L (22-30); Chloride 97 mmol/L (98-107); Glucose 456 mg/dL (74-99); Non-African American GFR(CKD) >90 (>60 ml/min/1.73 sqM); Potassium 4.5 mmol/L (3.5-5.1); Sodium 128 mmol/L (137-145)
[2024-02-04 11:44] LABS: MCV 100.5 fL (80.0-100.0)
[2024-02-04 11:49] LABS: Glucose,Whole Blood 398 mg/dL (70-110)
--- NOTE | 2024-02-04 12:06 | P.PN ---
Subjective Progress Note Date: 02/04/24 Patient is seen in follow-up for hyponatremia. Sodium level 127 yesterday. s/p 3%. Awake and alert. Oral intake fair. Vital signs are stable. General: No acute distress. HEENT: Head exam is unremarkable. LUNGS: No audible rhonchi or wheezes. HEART: Rate and Rhythm are regular. ABDOMEN: Nontender. EXTREMITITES: No edema. Objective - Vital Signs Vital signs: Vital Signs Temp 97.8 F 02/04/24 07:03 Pulse 59 L 02/04/24 07:03 Resp 16 02/04/24 07:03 BP 156/65 02/04/24 07:03 Pulse Ox 99 02/04/24 07:03 FiO2 Intake & Output 02/03/24 02/04/24 02/04/24 18:59 06:59 18:59 Intake Total 2220 Balance 2220 Intake: Oral 2220 Other: Voiding Method Toilet # Voids 1 1 - Labs CBC & Chem 7: 02/02/24 04:41 02/03/24 05:13 Labs: Abnormal Lab Results - Last 24 Hours (Table) 02/03/24 02/03/24 02/03/24 Range/Units 11:53 11:54 17:09 POC Glucose (mg/dL) 530 H 562 H 360 H (70-110) mg/dL 02/03/24 02/04/24 Range/Units 20:44 07:02 POC Glucose (mg/dL) 323 H 232 H (70-110) mg/dL Assessment and Plan Plan: Assessment: 1. Hyponatremia from poor intake and further worsened with the use of thiazide diuretic. Sodium level 127 yesterday TSH normal. Urine sodium 40 and urine osmolality 508. 2. Status post fall with right humerus fracture status post surgery January 29, 2024. 3. Diabetes mellitus. 4. Benign hypertension. Plan: Currently off IV fluids, s/p 3% saline and Tolvaptan 5/10. Encouraged oral intake. Maintain 1500 cc fluid restriction. Continue to hold hydrochlorothiazide. Monitor daily sodium level
[2024-02-04] MEDS: INSULIN ASPART (NovoLOG) 100 UNIT/ML VIAL SQ SCH ×2 (12:47→17:58)
--- NOTE | 2024-02-04 14:47 | P.PN ---
Subjective Progress Note Date: 02/04/24 Principal diagnosis: Severe hyponatremia Patient is a 73-year-old white female with past medical history significant for atrial fibrillation with Watchman device diabetes mellitus, hyperlipidemia, hypertension, asthma, JOSSUE without CPAP, and frequent falls. The first week of December, patient had a fall and sustained a right humeral fracture. She was walking into a restaurant, and tripped over a rug. Patient was brought into the hospital 01/29/2024, and underwent open reduction with internal fixation of the right distal humeral fracture. During this admission she was noted to be hyponatremic. She has previous history of hospitalization for severe hyponatremia back in 2020. She is currently sitting up in bed, alert and oriented x 3. She takes thiazide diuretics and spironolactone outpatient. Also, on venlafaxine. Denies any history of malignancy. Denies history of kidney disease or urinary complaints. Denies head trauma. Denies headache. Denies seizures. Denies alcohol use. Denies any nausea vomiting or diarrhea. Oral intake and fluids adequate. Appears euvolemic. Patient states that she had URI- like symptoms approximately 3 weeks ago. Admits occasional nonproductive cough, otherwise no pulmonary complaints. No fever. No chest pain. No hemoptysis. On room air. Her sodium level last night was down to 116. Patient was transferred to the intensive care unit late last night for a 3% sodium infusion per nephrology recommendation. Most recent labs include an unremarkable CBC. BMP includes a sodium of 116, potassium 4.3, chloride 88, serum bicarb 26, BUN 15, creatinine 0.49, glucose 111. Serum osmolality low at 261. Urine sodium 74. Awaiting urine osmolality. 3% sodium infusion has been started at 25 mL/h per nephrology recommendation. Sodium goal is 120-122. Vital signs are stable. Patient was evaluated today on 02/02/2024, patient was transferred to the ICU yesterday because of low sodium today sodium is 126. Patient received 3% saline overnight, she is in no distress, basically asymptomatic. Her hyponatremia was felt to be related to poor intake and to taking thiazide diuretics, basically hypovolemic hyponatremia. Her hydrochlorothiazide is on hold, at any rate her sodium is up to 126 today, and I believe the patient could be transferred out of the ICU to a regular medical floor the patient denies any shortness of breath, no cough no wheezing, does not seem to be in any distress Patient was evaluated today on 02/03/2024, patient is doing much better today, feels fine, not in any distress, her sodium is up to 127, rest of the labs are unremarkable blood sugar however is high today at 562. This is being addressed by her admitting physician. Considering her elevated blood sugar, Patient was reevaluated today on 02/04/2024, patient is doing great, relatively asymptomatic, labs are normal including normal CBC, sodium is improving, up to 128, renal profile is normal. Hence I will clear the patient for discharge if cleared by other consultants. Nonetheless she has sugars that seems to be poorly controlled, still ranging in the range of 230 up to 456. I doubt if the admitting physician will clear the patient for discharge at this point mostly because of her hyperglycemia. Objective - Vital Signs Vital signs: Vital Signs Temp 97.5 F L 02/04/24 12:42 Pulse 55 L 02/04/24 12:42 Resp 18 02/04/24 12:42 BP 160/78 02/04/24 12:42 Pulse Ox 100 02/04/24 12:42 FiO2 Intake & Output 02/03/24 02/04/24 02/04/24 18:59 06:59 18:59 Intake Total 2220 480 Balance 2220 480 Intake: Oral 2220 480 Other: Voiding Method Toilet # Voids 1 1 - Exam GENERAL EXAM: Reveals 73-year-old female in no distress, patient is on room air O2 sat is 99% HEAD: Normocephalic and atraumatic EYES: Normal reaction of pupils, equal size. NOSE: Clear with pink turbinates. THROAT: No erythema or exudates. NECK: No masses, no JVD. CHEST: No chest wall deformity. LUNGS: Clear bilaterally no rhonchi no wheezes CVS: S1 and S2 normal with no audible murmur, regular rhythm. No extra heart sounds ABDOMEN: No hepatosplenomegaly, active bowel sounds, no guarding or rigidity. SKIN: No rashes CENTRAL NERVOUS SYSTEM: Alert oriented x 3 no gross focal deficit EXTREMITIES: No clubbing edema or cyanosis patient does have right arm wrapped in soft cast - Labs CBC & Chem 7: 02/04/24 10:44 02/04/24 10:44 Labs: Abnormal Lab Results - Last 24 Hours (Table) 02/03/24 02/03/24 02/04/24 Range/Units 17:09 20:44 07:02 MCV (80.0-100.0) fL Lymphocytes # (1.0-4.8) k/uL Sodium (137-145) mmol/L Chloride (98-107) mmol/L BUN (7-17) mg/dL Glucose (74-99) mg/dL POC Glucose (mg/dL) 360 H 323 H 232 H (70-110) mg/dL 02/04/24 02/04/24 02/04/24 Range/Units 10:44 10:44 11:48 MCV 100.5 H D (80.0-100.0) fL Lymphocytes # 0.9 L (1.0-4.8) k/uL Sodium 128 L (137-145) mmol/L Chloride 97 L (98-107) mmol/L BUN 22 H (7-17) mg/dL Glucose 456 H (74-99) mg/dL POC Glucose (mg/dL) 398 H (70-110) mg/dL Assessment and Plan Assessment: Impression: Severe hyponatremia, possibly iatrogenic related to combination of thiazide diuretics and SNRI, rule out SIADH History of fall sustaining right humeral fracture, status postoperative day #4 following a open reduction with internal fixation of the right distal femoral fracture. History of paroxysmal atrial fibrillation with previous Watchman device insertion. Not currently anticoagulated secondary to frequent falls and b leeding Diabetes mellitus type 2, insulin-dependent, with home insulin pump, presently her sugars are poorly controlled while in the hospital. History of hyperlipidemia History of hypertension History of asthma, stable History of obstructive sleep apnea without home CPAP Left upper lobe nonspecific abnormality noted on her initial chest x-ray, however it seems to have improved and there seems to be better aeration of the left upper lobe on this chest x-ray from today, could consider a CT of the chest if the abnormality does not completely resolve, or if she continues to have persistent hyponatremia Recommendation: Continue present supportive care measures Patient could be considered for follow-up with me on outpatient basis to evaluate the left upper lobe nonspecific finding, or consider a CT of the chest before she is discharged. Will clear the patient for discharge if cleared by other consultants. However her sugar needs to be better controlled. Will sign off and see the patient on as needed basis. Time with Patient: Less than 30
--- NOTE | 2024-02-04 15:23 | P.PN ---
Subjective Progress Note Date: 02/04/24 (delayed charting seen at 0930) Patient is a 73-year-old female with diabetes mellitus type 2 insulin pump with oral medications enters appetite, hypertension, and gout who was admitted for scheduled right distal humeral fracture ORIF. Patient had no immediate postoperative complications. She continued to be hospitalized that she was making arrangements for rehabilitation. On the morning of 01/30 patient had postoperative blood work completed which showed a sodium of 119. At that point in time she was diagnosed with euvolemic hyponatremia her Aldactone and hydrochlorothiazide was held. Serum and urine osmole were ordered. Nephrology was consulted and recommended adding 1500 cc fluid restriction and starting normal saline at 75 cc an hour. Repeat blood work showed sodium down to 116. Patient was transferred to the ICU and critical care was consulted. Patient was ultimately started on 3% sodium infusion at 25 mL/h. With a goal sodium of 120- 122. This was discontinue ditch tender 01/31. Her sodium remained stable. Pulmonary was concerned for possible PNA and she was started on antibiotics. Patient's insulin pump became dislodged on the morning of 02/03/2024 and therefore her blood sugars went up to a max of 500. Transition to long-acting and short acting insulin Patient seen and examined at bedside. We again reviewed why she needs a fluid restriction. Pain is decently controlled. No nausea or vomiting. She does want to go to rehab. Vital signs reviewed General: Nontoxic, no distress, appears at stated age Cardiovascular: S1S2 reg, no murmur Lungs: CTA bilateral, no rhonchi, no rales, no accessory muscle use Ext: No gross muscle atrophy, no edema b/l lower extremities, no contractures, right arm in sling Psych: Alert, oriented, appropriate affect Assessment/Plan: 73-year-old female status post ORIF right distal humerus Hyponatremia due to poor solute intake and use of thiazide diuretic - Off effexor, aldactone and HCTZ - s/p hypertonic saline -Neurology note reviewed: Monitor sodium levels daily. - s/p Samsca 7.5 mg 02/01 - Outpatient sodium 125 on 01/17/24. - repeat sodium level in AM Diabetes mellitus type 2 -Patient's insulin pump became dislodged -Levemir increased to 8 units twice daily, NovoLog 2 units with meals plus sliding scale -Continue to follow blood sugars -Follow blood sugars -Hemoglobin A1c 10.8 Hypertension -Patient off hydrochlorothiazide and Aldactone due to hyponatremia -Metoprolol 25 mg twice daily, hydralazine 75 mg PO TID -Start Lisinopril 10 mg daily -Follow blood pressures Left upper lobe infiltrate -stop rocephin -Critical care note reviewed: follow-up on an outpatient basis for the left upper lobe nonspecific finding Imaging: None new Data Review: Labs reviewed from today include CBC and basic metabolic profile which are remarkable for sodium of 128. -Blood sugars remain elevated with a.m. fasting blood sugar at 232. DVT prophylaxis: Lovenox Anticipated discharge date: in AM Anticipated discharge place: [facility] This dictation was prepared using [employer] voice recognition software. Though every attempt is made to correct errors during dictation some may still exist. Objective - Vital Signs Vital signs: Vital Signs Temp 97.5 F L 02/04/24 12:42 Pulse 55 L 02/04/24 12:42 Resp 18 02/04/24 12:42 BP 160/78 02/04/24 12:42 Pulse Ox 100 02/04/24 12:42 FiO2 Intake & Output 02/03/24 02/04/24 02/04/24 18:59 06:59 18:59 Intake Total 2220 480 Balance 2220 480 Intake: Oral 2220 480 Other: Voiding Method Toilet # Voids 1 1 - Labs CBC & Chem 7: 02/04/24 10:44 02/04/24 10:44 Labs: Abnormal Lab Results - Last 24 Hours (Table) 02/03/24 02/03/24 02/04/24 Range/Units 17:09 20:44 07:02 MCV (80.0-100.0) fL Lymphocytes # (1.0-4.8) k/uL Sodium (137-145) mmol/L Chloride (98-107) mmol/L BUN (7-17) mg/dL Glucose (74-99) mg/dL POC Glucose (mg/dL) 360 H 323 H 232 H (70-110) mg/dL 02/04/24 02/04/24 02/04/24 Range/Units 10:44 10:44 11:48 MCV 100.5 H D (80.0-100.0) fL Lymphocytes # 0.9 L (1.0-4.8) k/uL Sodium 128 L (137-145) mmol/L Chloride 97 L (98-107) mmol/L BUN 22 H (7-17) mg/dL Glucose 456 H (74-99) mg/dL POC Glucose (mg/dL) 398 H (70-110) mg/dL
[2024-02-04 17:01] LABS: Glucose,Whole Blood 498 mg/dL (70-110)
[2024-02-04] MEDS: INSULIN ASPART (NovoLOG) 100 UNIT/ML VIAL SQ ONE (17:56)
[2024-02-04 20:10] VITALS: RESP 16
[2024-02-04 20:24] LABS: Glucose,Whole Blood 386 mg/dL (70-110)
[2024-02-04] MEDS: INSULIN DETEMIR (LEVEMIR) 100 UNIT/ML SYR SQ SCH (21:17)
[2024-02-05 06:53] LABS: Glucose,Whole Blood 155 mg/dL (70-110)
[2024-02-05 07:51] VITALS: TEMP 97.8
[2024-02-05 08:17] LABS: African American GFR (CKD) >90 (>60 ml/min/1.73 sqM); Anion Gap 1 mmol/L; Blood Urea Nitrogen 22 mg/dL (7-17); Calcium 8.4 mg/dL (8.4-10.2); Carbon Dioxide 29 mmol/L (22-30); Chloride 99 mmol/L (98-107); Glucose 162 mg/dL (74-99); Non-African American GFR(CKD) >90 (>60 ml/min/1.73 sqM); Sodium 129 mmol/L (137-145)
[2024-02-05 12:15] LABS: Glucose,Whole Blood 403 mg/dL (70-110)
--- NOTE | 2024-02-05 13:00 | P.PN ---
Subjective patient is seen for follow-up for hyponatremia. No significant complaints today. Sodium improved to 129 today. Tolerating oral intake. Objective - Vital Signs Vital signs: Vital Signs Temp 97.8 F 02/05/24 12:11 Pulse 57 L 02/05/24 12:11 Resp 16 02/05/24 12:11 BP 161/74 02/05/24 12:11 Pulse Ox 98 02/05/24 12:11 FiO2 Intake & Output 02/04/24 02/05/24 02/05/24 18:59 06:59 18:59 Intake Total 480 480 240 Balance 480 480 240 Intake: Oral 480 480 240 Other: Voiding Method Toilet # Voids 1 2 1 # Bowel Movements 1 - Exam patient is awake, comfortable, no acute distress Examination of the heart S1 and S2 Examination of the lungs bilateral breath sounds are heard Abdomen is soft nontender Examination of lower extremity shows no significant edema CULTURE MANAGER exam grossly intact - Labs CBC & Chem 7: 02/04/24 10:44 02/05/24 06:54 Labs: Abnormal Lab Results - Last 24 Hours (Table) 02/04/24 02/04/24 02/05/24 Range/Units 16:59 20:21 06:51 Sodium (137-145) mmol/L BUN (7-17) mg/dL Glucose (74-99) mg/dL POC Glucose (mg/dL) 498 H 386 H 155 H (70-110) mg/dL 02/05/24 02/05/24 Range/Units 06:54 12:13 Sodium 129 L (137-145) mmol/L BUN 22 H (7-17) mg/dL Glucose 162 H (74-99) mg/dL POC Glucose (mg/dL) 403 H (70-110) mg/dL Assessment and Plan Assessment: 1. Hyponatremia from poor intake and further worsened with the use of thiazide diuretic. Sodium level improved to 129 today TSH normal. Urine sodium 40 and urine osmolality 508. 2. Status post fall with right humerus fracture status post surgery January 29, 2024. 3. Diabetes mellitus. 4. Benign hypertension. Plan: okay for discharge from nephrology standpoint. Continue with fluid restriction Continue to hold hydrochlorothiazide Repeat sodium in 3-4 days post discharge and follow-up in the office in one week.
[2024-02-05 13:29] VITALS: BP 161/74; PULSE 57
--- NOTE | 2024-02-05 13:34 | P.DS ---
Providers Date of admission: 01/31/24 10:45 Expected date of discharge: 02/05/24 Attending physician: Isabel Quiroga DO Consults: 01/29/24 15:10 Consult Physician Routine Consulting Provider: Faye Mike Consult Reason/Comments: Medical management Do you want consulting provider notified?: Yes 01/31/24 09:56 Consult Physician Routine Consulting Provider: Barrie Pal Consult Reason/Comments: hypoNa Do you want consulting provider notified?: Yes 01/31/24 21:52 Consult Physician Stat Consulting Provider: Juancho Aparicio Consult Reason/Comments: hyponatremia Do you want consulting provider notified?: Already Contacted Primary care physician: Viraj Camara [facility] Course: Discharge Diagnosis: 73-year-old female status post ORIF right distal humerus Hyponatremia due to poor solute intake and use of thiazide diuretic Diabetes mellitus type 2 Hypertension Left upper lobe infiltrate Hospital Course: Patient is a 73-year-old female with diabetes mellitus type 2 insulin pump with oral medications, hypertension, and gout who was admitted for scheduled right distal humeral fracture ORIF. Patient had no immediate postoperative complications. She continued to be hospitalized that she was making arrangements for rehabilitation. On the morning of 01/30 patient had postoperative blood work completed which showed a sodium of 119. At that point in time she was diagnosed with euvolemic hyponatremia her Aldactone and hydrochlorothiazide was held. Serum and urine osmole were ordered. Nephrology was consulted and recommended adding 1500 cc fluid restriction and starting normal saline at 75 cc an hour. Repeat blood work showed sodium down to 116. Patient was transferred to the ICU and critical care was consulted. Patient was ultimately started on 3% sodium infusion at 25 mL/h. With a goal sodium of 120- 122. 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 Her sodium remained stable. Pulmonary was concerned for possible PNA and she was started on antibiotics. Antibiotics later discontinued, outpatient follow-up for left upper lobe nonspecific findings. Patient's insulin pump became dislodged on the morning of 02/03/2024 and therefore her blood sugars went up to a max of 500. Transition to long-acting and short acting insulin. Patient's sugar has not been well-managed on insulin pump, likely not managing it well at home given high A1c. Patient started on basal bolus insulin which she will continue at rehab. Sodium levels have been consistently going up, follow-up outpatient with nephrology and repeat BMP. Patient seen and examined at bedside. Vital signs reviewed and stable. General: Nontoxic, no distress, appears at stated age Derm: Warm, dry Head: Atraumatic, normocephalic, symmetric Eyes: EOMI, no lid lag, anicteric sclera Mouth: No lip lesion, mucus membranes moist Cardiovascular: S1S2 reg, no murmur, positive posterior tibial pulse bilateral, Lungs: CTA bilateral, no rhonchi, no rales, no accessory muscle use Abdominal: Soft, nontender to palpation, no guarding, no appreciable organomegaly Ext: No gross muscle atrophy, no edema, no contractures, right arm in a sling Neuro: CN II-XI grossly intact, no focal neuro deficits Psych: Alert, oriented, appropriate affect A total of 33 minutes of time were spent preparing this complex discharge summary. Patient was discharged on 02/05/2024 at 1205. Patient Condition at Discharge: Stable Plan - Discharge Summary Discharge Rx Participant: Yes New Discharge Prescriptions: New traMADol HCl [Ultram] 50 mg PO Q6HR PRN #28 tab PRN Reason: Pain hydrALAZINE HCL [Apresoline] 75 mg PO TID tab Insulin Detemir (Levemir) [Levemir] 8 unit SQ DAILY@0700 each Nystatin 100,000 Unit/gm Powd [Mycostatin Powder] 1 applic TOPICAL TID each INSULIN ASPART (NovoLOG) [NovoLOG (formulary)] 0 unit SQ ACHS each Sennosides-Docusate Sodium [Senokot-S] 1 tab PO BID #60 tablet Insulin Detemir (Levemir) [Levemir] 8 unit SQ HS each INSULIN ASPART (NovoLOG) [NovoLOG (formulary)] 4 unit SQ AC-TID each Acetaminophen Tab [Tylenol] 650 mg PO Q6HR PRN tab PRN Reason: Fever and/ or Mild Pain Continue Dapagliflozin Propanediol [Farxiga] 10 mg PO DAILY Atorvastatin [Lipitor] 40 mg PO HS #30 tab Metoprolol Tartrate [Lopressor] 25 mg PO BID #60 tablet Cholecalciferol [Vitamin D3 (25 Mcg = 1000 Iu)] 25 mcg PO DAILY allopurinoL [Zyloprim] 100 mg PO HS Discontinued sitaGLIPtin [Januvia] 100 mg PO DAILY Insulin Glulisine (For Pump) [Apidra (For Pump)] 3.2 units SQ-PUMP CONTINUOUS Lisinopril-Hctz 20-12.5 mg [Zestoretic 20-12.5] 1 tab PO BID Venlafaxine HCl [Effexor] 225 mg PO QAM Tirzepatide [Mounjaro] 5 mg SQ TH Spironolactone 50 mg PO QAM ALPRAZolam [Xanax] 0.25 mg PO TID PRN PRN Reason: Anxiety Acetaminophen Tab [Tylenol Tab] 500 - 1,000 mg PO Q4-6H PRN PRN Reason: Pain Discharge Medication List Dapagliflozin Propanediol [Farxiga] 10 mg PO DAILY 03/15/19 [History] Atorvastatin [Lipitor] 40 mg PO HS #30 tab 03/20/19 [Rx] Metoprolol Tartrate [Lopressor] 25 mg PO BID #60 tablet 03/20/19 [Rx] Cholecalciferol [Vitamin D3 (25 Mcg = 1000 Iu)] 25 mcg PO DAILY 07/24/21 [History] allopurinoL [Zyloprim] 100 mg PO HS 07/24/21 [History] Sennosides-Docusate Sodium [Senokot-S] 1 tab PO BID #60 tablet 01/29/24 [Rx] traMADol HCl [Ultram] 50 mg PO Q6HR PRN #28 tab 01/29/24 [Rx] Acetaminophen Tab [Tylenol] 650 mg PO Q6HR PRN tab 02/05/24 [Rx] INSULIN ASPART (NovoLOG) [NovoLOG (formulary)] 0 unit SQ ACHS each 02/05/24 [Rx] INSULIN ASPART (NovoLOG) [NovoLOG (formulary)] 4 unit SQ AC-TID each 02/05/24 [Rx] Insulin Detemir (Levemir) [Levemir] 8 unit SQ DAILY@0700 each 02/05/24 [Rx] Insulin Detemir (Levemir) [Levemir] 8 unit SQ HS each 02/05/24 [Rx] Nystatin 100,000 Unit/gm Powd [Mycostatin Powder] 1 applic TOPICAL TID each 02/05/24 [Rx] hydrALAZINE HCL [Apresoline] 75 mg PO TID tab 02/05/24 [Rx] Follow up Appointment(s)/Referral(s): Nena Chapa PAC [PHYSICIAN EVALUATION ANALYST] - 2 Weeks Juancho Aparicio MD [STAFF PHYSICIAN] - 2 Weeks (outpatient CT scan to characterize nodule, can be done when completed rehab. ) Barrie Pal DO [STAFF PHYSICIAN] - 1 Week Patient Instructions/Handouts: Hyponatremia (DC) Activity/Diet/Wound Care/Special Instructions: Maintain splint and sling RUE. Encourage finger motion. BMP in 3 days Dx: Hyponatremia, please send results to Dr. Pal 1500 cc fluid restriction daily. Discharge Disposition: TRANSFER TO SNF/ECF
== END 2024-02-05 15:55 | DRG 493 ==
LOC: OR 10:25 → 5NMEDONC 14:59 → OR 01-31 10:45 → 2SICU 01-31 22:21 → 5NMEDONC 02-02 23:14
PROVIDERS: ADMIT Internal Medicine; ATTEND Internal Medicine
PROC: 0PBK0ZZ Excision of Right Ulna, Open Approach (ICD-10-PCS; 2024-01-29)
PROC: 0PHK04Z Insertion of Internal Fixation Device into Right Ulna, Open Approach (ICD-10-PCS; 2024-01-29)
PROC: 3E0T3BZ Introduction of Anesthetic Agent into Peripheral Nerves and Plexi, Percutaneous Approach (ICD-10-PCS; 2024-01-29)
PROC: 0PSF04Z Reposition Right Humeral Shaft with Internal Fixation Device, Open Approach (ICD-10-PCS; principal; 2024-01-29 12:30)
DX: S42.411A Displaced simple supracondylar fracture without intercondylar fracture of right humerus, initial encounter for closed fracture (principal); E87.1 Hypo-osmolality and hyponatremia; E11.9 Type 2 diabetes mellitus without complications; I48.0 Paroxysmal atrial fibrillation; R29.6 Repeated falls; Z96.41 Presence of insulin pump (external) (internal); T50.2X5A Adverse effect of carbonic-anhydrase inhibitors, benzothiadiazides and other diuretics, initial encounter; X58.XXXA Exposure to other specified factors, initial encounter; Z88.6 Allergy status to analgesic agent; Z88.5 Allergy status to narcotic agent; E11.65 Type 2 diabetes mellitus with hyperglycemia; E78.5 Hyperlipidemia, unspecified; E86.1 Hypovolemia; I10 Essential (primary) hypertension; M10.9 Gout, unspecified; J45.909 Unspecified asthma, uncomplicated; W18.09XA Striking against other object with subsequent fall, initial encounter; Y93.01 Activity, walking, marching and hiking; Z79.4 Long term (current) use of insulin; Z79.84 Long term (current) use of oral hypoglycemic drugs; Z79.899 Other long term (current) drug therapy; Z82.49 Family history of ischemic heart disease and other diseases of the circulatory system; Z90.710 Acquired absence of both cervix and uterus; Z91.81 History of falling; Z95.818 Presence of other cardiac implants and grafts; Z90.49 Acquired absence of other specified parts of digestive tract; R91.8 Other nonspecific abnormal finding of lung field; Z87.440 Personal history of urinary (tract) infections; Z98.42 Cataract extraction status, left eye; Z98.41 Cataract extraction status, right eye; Z95.828 Presence of other vascular implants and grafts
CPT/HCPCS: 64415; 71045; 80048; 83735; 83930; 83935; 84145; 84295; 84300; 84443; 85025; 85027

== ENCOUNTER → 2024-10-04 | Outpatient (CLI) | payer MEDICARE ==
--- NOTE | 2024-10-04 13:05 | MM ---
Reason for Exam: Screening (asymptomatic). Last mammogram was performed 2 year(s) and 6 month(s) ago. Patient History: Menarche at age 14. Patient has no children. Left ovary removed at age 47. Right ovary removed at age 47. Hysterectomy at age 47. Postmenopausal. Estrogen for 6 months starting at age 47. Progesterone for 6 months starting at age 47. Excisional Biopsy on the Right side. Benign Excisional Biopsy on the right side. 02/28/2020, Benign Core Biopsy on the right side. Sister had breast cancer, age 61. Mother had breast cancer, age 48. Risk Values: Chanell 5 year model risk: 8.9%. NCI Lifetime model risk: 22.7%. Prior Study Comparison: 09/22/2020 Right Diagnostic Mammogram, [facility]. 03/11/2021 Bilateral Screening Mammogram, [facility]. 04/07/2022 Bilateral MG 3D diag mammo w/cad [place], [facility]. Tissue Density: There are scattered areas of fibroglandular density. Findings: Analyzed By CAD. Right breast: There is no suspicious group of microcalcifications or new suspicious mass. Benign-appearing calcifications right breast. Left breast: Left breast surgical clips There is no suspicious group of microcalcifications or new suspicious mass. Benign-appearing calcifications left breast. Overall Assessment: Benign, BI-RAD 2 Management: Screening Mammogram of both breasts in [address] [facility] will attempt to contact patient to return for supplemental views and ultrasound if indicated. Patient should continue monthly self-breast exams. A clinical breast exam by your physician is recommended on an annual basis. This exam should not preclude additional follow-up of suspicious palpable abnormalities. Note on Chanell scores and lifetime risk: 1. A Chanell score greater than 3% is considered moderate risk. If this is the case, consider specialist referral to assess eligibility for a risk reducing agent. 2. If overall lifetime risk for the development of breast cancer is 20% or higher, the patient may qualify for future screening with alternating mammogram and breast MRI. [facility], , 10/04/2024 1:00 PM. Electronically signed and approved by: Erik Raymundo DO
== END | disposition home or self-care (01) ==
LOC: RADMAMWWP 11:30
PROVIDERS: ATTEND Family Medicine
DX: Z12.31 Encounter for screening mammogram for malignant neoplasm of breast (principal); R92.323 Mammographic fibroglandular density, bilateral breasts; Z78.0 Asymptomatic menopausal state; Z80.3 Family history of malignant neoplasm of breast; Z90.722 Acquired absence of ovaries, bilateral
CPT/HCPCS: 77067